=== PATIENT | female | born 1965 | race Caucasian/White ===

== ENCOUNTER → 2016-10-16 | Outpatient (CLI) | payer BC ==
[2015-11-23 14:59] VITALS: BP 152/92
[~2016-10-16] MED LIST: NS 100 ML IV 100 ML IV ONE
[2016-10-16 08:41] LABS: CREATININE 1.09 mg/dL (0.55-1.02)
--- NOTE | 2016-10-16 09:51 | CT ---
HISTORY: Sinusitis Study: CT sinuses with contrast Comparison: None Technique: Axial post-contrast images with coronal and sagittal reformats. Dose reduction procedures were used with MA/kv adjusted for body size. Findings: The frontal, ethmoid, sphenoid, and maxillary sinuses are clear. The ostiomeatal complexes are paten t. There is leftward nasal septal deviation there is right-sided braxton bullosa. The middle ear spac es and mastoid air cells are clear. IMPRESSION: Clear paranasal sinuses Right-sided braxton bullosa Reported By:
--- NOTE | 2016-10-16 10:27 | CT ---
HISTORY: 51-year-old female with neck swelling, sinusitis Study: CT neck soft tissues with contrast Comparison: None Technique: Multiple axial images of the neck were obtained following the administration of intraveno us contrast. Reformatted coronal and sagittal images were also obtained. Dose reduction techniques i ncluding Automated Exposure Control (AEC) and adjustment of mA and kV were utilized. Findings: The nasopharynx and oropharynx are normal in appearance. The base of the tongue and lymphoid tissue within Waldeyer's ring are unremarkable. The hypopharynx and larynx appear normal. No discrete mass or lymphadenopathy is identified in the n cristina. There is moderate, symmetric fatty replacement of the bilateral parotid glands. The submandibul ar and thyroid glands appear normal. The included portions of the brain and skull base appear normal. The paranasal sinuses and mastoid a ir cells appear clear. The visualized upper lungs and mediastinum and heart are also within normal l imits. The imaged osseous structures appear intact. IMPRESSION: No acute osseous or soft tissue abnormality of the neck. Moderate fatty atrophy of the bilateral parotid glands. Reported By:
== END | disposition home or self-care (01) | DRG 607 ==
LOC: RAD 08:21
PROVIDERS: ATTEND Nurse Practitioner Family
DX: R22.0 Localized swelling, mass and lump, head (principal); J32.8 Other chronic sinusitis; K11.0 Atrophy of salivary gland; J34.89 Other specified disorders of nose and nasal sinuses
CPT/HCPCS: 36415; 70487; 70491; 82565; 84520; A4222

== ENCOUNTER → 2017-01-06 | Outpatient (CLI) | payer BC ==
[2015-11-23 14:59] VITALS: BP 152/92
[2017-01-06 14:46] LABS: STOOL FOR WBC POSITIVE (NEGATIVE)
[2017-01-06 14:59] LABS: CRYPTOSPORIDIUM PARVUM ANTIGEN NEGATIVE (NEGATIVE); GIARDIA LAMBLIA ANTIGEN NEGATIVE (NEGATIVE)
== END ==
LOC: LAB 12:04
PROVIDERS: ATTEND Nurse Practitioner Family
DX: R19.7 Diarrhea, unspecified (principal)
CPT/HCPCS: 82270; 83630; 87045; 87328; 87329; 87336; 87338; 87427; 87493; 87899

== ENCOUNTER 2017-01-12 13:07 | Inpatient (IN) | payer BC ==
[2017-01-12 15:43] VITALS: BMI 22.1
[2017-01-12 16:17] LABS: BILIRUBIN,URINE NEGATIVE (NEGATIVE); BLOOD/HEMOGLOBIN,URINE NEGATIVE (NEGATIVE); GLUCOSE, URINE NEGATIVE (NEGATIVE); KETONES,URINE NEGATIVE (NEGATIVE); LEUKOCYTE ESTERASE ,URINE NEGATIVE (NEGATIVE); NITRITES,URINE NEGATIVE (NEGATIVE); PROTEIN,URINE NEGATIVE (NEGATIVE); UROBILINOGEN,URINE NORMAL (NORMAL)
[2017-01-12 16:25] LABS: APPEARANCE,URINE CLEAR (CLEAR); COLOR,URINE YELLOW (YELLOW)
[2017-01-12 16:27] LABS: AMORPHOUS SEDIMENT,UR TRACE /HPF (NEGATIVE); BACTERIA,URINE TRACE /HPF (NEGATIVE); SQUAMOUS EPITHELIAL CELL,UR MODERATE /HPF (NEGATIVE)
[2017-01-12] MEDS ORDERED: PERCOCET TAB 5/325 MG PO PRN (16:29)
[2017-01-12] MEDS ORDERED: HumuLIN R SUBCUT PRN (16:31)
[2017-01-12 16:51] LABS: BASOPHILS # (AUTO) 0.1 X10^3/uL (0.0-0.1); BASOPHILS % (AUTO) 1.8 % (0.2-1.0); EOSINOPHILS # (AUTO) 0.3 x10^3/uL (0.0-0.2); HEMATOCRIT 36.8 % (36.0-47.0); HEMOGLOBIN 12.2 g/dL (12.0-16.0); LYMPHOCYTES # (AUTO) 1.4 X10^3/uL (1.3-2.9); MEAN CORPUSCULAR HEMOGLOBIN 27.3 pg (27.0-34.0); MEAN CORPUSCULAR HGB CONC 33.1 g/dL (33.0-35.0); MEAN CORPUSCULAR VOLUME 82.3 fL (80.0-100.0); MEAN PLATELET VOLUME 10.5 fL (7.4-11.0); MONOCYTES # (AUTO) 0.4 x10^3/uL (0.3-0.8); MONOCYTES % (AUTO) 5.9 % (0.0-13.0); NEUTROPHILS # (AUTO) 4.1 x10^3/uL (2.2-4.8); NEUTROPHILS % (AUTO) 65.3 % (42.0-75.0); PLATELET COUNT 178 X10^3/uL (150.0-450.0); RED BLOOD COUNT 4.47 X10^6/uL (3.5-5.4); RED CELL DISTRIBUTION WIDTH 13.9 % (11.6-16.5); WHITE BLOOD COUNT 6.3 X10^3/uL (3.6-10.0)
[2017-01-12 17:56] LABS: ALANINE AMINOTRANSFERASE 136 Units/L (12-78); ALBUMIN 3.6 g/dL (3.4-5.0); ALKALINE PHOSPHATASE 93 Units/L (46-116); AMYLASE 31 Units/L (25-115); ASPARTATE AMINO TRANSFERASE 145 Units/L (15-37); BLOOD UREA NITROGEN 11 mg/dL (7-18); CALCIUM 9.3 mg/dL (8.5-10.1); CARBON DIOXIDE 26.1 mmol/L (21-32); CHLORIDE 100 mmol/L (98-107); COR NA(FOR HYPERGLY) 140 mmol/L (136-145); LIPASE 146 Units/L (73-393); SODIUM 138 mmol/L (136-145); TOTAL PROTEIN 7.8 g/dL (6.4-8.2); eGFR BLACK RACES > 60 (>60); eGFR NON BLACK RACES > 60 (>60)
--- NOTE | 2017-01-12 18:53 | DR.H&P ---
H&P - History & Physical for Day of: H&P Date: 01/12/17 - Chief Complaint Chief Complaint: ABDOMINAL PAIN, N/V/D - Allergies Allergies/Adverse Reactions: Allergies Allergy/AdvReac Type Severity Reaction Status Date / Time Penicillins Allergy Verified 01/12/17 14:57 codeine AdvReac Verified 01/12/17 14:58 ropinirole AdvReac Verified 01/12/17 14:59 - History of Present Illness History of Present Illness: patient is a 51-year-old white female who presents to the office today with complaints of abdominal pain nausea vomiting and diarrhea that persisted for over a week. Patient has been treated with Cipro on an outpatient basis as well as stool studies. We will plan to admit patient for further evaluation of nausea vomiting food intolerance and diarrhea. Plan to start patient on IV Cipro as well as Flagyl, repeat stool studies, IV hydration and blood sugar control, CT scan of abdomen and pelvis and rule out diverticulitis. Patient has a past medical history of high blood pressure and diabetes. We will resume patient's home medications. - Past Medical History Past Medical History: Dyslipidemia, Hypertension, Hyperthyroidism - Past Surgical History Surgical History: Hysterectomy, Other - Family History Family Medical History: Diabetes Mellitus, Cancer, [place], Coronary Artery Disease, Hypertension - Social History Does patient currently use any type of tobacco product: No Have you used tobacco products in the last 12 months: No Type of Tobacco Use: Cigarettes How many years tobacco product used: 36 Does any household member use tobacco: No Alcohol Use: None Drug Use: Prescription Drugs - Medications Home Medications: Aspirin EC [ASPIRIN EC 81 MG *] 1 tab PO DAILY 01/12/17 [History Confirmed 01/12] Metformin HCl [Metformin HCl ER] 1 tab PO BID 01/12/17 [History Confirmed ] Niacin [Niacin ER 500 mg] 1 cap PO DAILY 01/12/17 [History Confirmed 01/12/17] Omeprazole [PRILOSEC 20 MG *] 1 tab PO DAILY 01/12/17 [History Confirmed ] - Review of Systems Constitutional: Weakness Eyes: No Symptoms Reported ENT: No Symptoms Reported Respiratory: No Symptoms Reported Cardiovascular: No Symptoms Reported Gastrointestinal: Nausea, Vomiting, Abdominal Pain, Diarrhea Genitourinary: No Symptoms Reported Musculoskeletal: Back Pain, Leg Pain Skin: No Symptoms Reported Neurological: No Symptoms Reported - Physical Exam Vital Signs: Temperature 97.7 F Pulse Rate [Right Brachial] 78 Respiratory Rate 20 Blood Pressure [Right Arm] 139/81 Blood Pressure 152/92 O2 Sat by Pulse Oximetry 97 Oriented: Normal Ear: Normal Nose: Normal Throat: Dry Respiratory: RLL Diminished, LLL Diminished Cardiovascular: Normal : Normal Auscultation: Bowel Sounds: Increased Tenderness: RUQ, Epigastric Skin: Normal Musculoskeletal: Normal Psychiatric: Normal Speech Pattern: Clear, Appropriate - Assessment/Plan (1) Abdominal pain Status: Acute Plan: ADMIT, CT ABD/PELVIS WITH CONTRAST. CBC CMP AMYLASE AND LIPASE ON ADMISSION. STOOL STUDIES. IV CIPRO AND FLAGYL, IV HYDRATION. PAIN CONTROL, HIDA SCAN Q AM DUE TO A RUQ TENDERNESS, FOOD INTOLERANCE WAVES OF NAUSEA. SSI FOR BLOOD SUGAR CONTROL (2) Nausea, vomiting and diarrhea Status: Acute (3) Diabetes mellitus Qualifiers: Diabetes mellitus type: type 2 Status: Acute
[2017-01-12] MEDS ORDERED: CIPRO IV 400 MG PREMIX* 400 MG/200 ML IV.SOLN. IV SCH (21:00)
[2017-01-12] MEDS: NS 1000 ML 1,000 ML IV SCH (22:02)
[2017-01-12] MEDS: SNACK - Diabetic Appropriate PO SCH (22:21)
[2017-01-12] MEDS: FLAGYL IV PREMIX 500 MG BAG 500 MG/100 ML BAG IV SCH (23:47)
[2017-01-13] MEDS ORDERED: BENADRYL CAP 50 MG PO ONE (00:06)
[2017-01-13] MEDS ORDERED: BENADRYL CAP/TAB 25 MG PO ONE (00:07)
[2017-01-13] MEDS: FLAGYL IV PREMIX 500 MG BAG 500 MG/100 ML BAG IV SCH ×3 (02:13→15:25)
[2017-01-13 05:28] LABS: BASOPHILS # (AUTO) 0.1 X10^3/uL (0.0-0.1); BASOPHILS % (AUTO) 1.3 % (0.2-1.0); EOSINOPHILS # (AUTO) 0.4 x10^3/uL (0.0-0.2); EOSINOPHILS % (AUTO) 4.7 % (0.9-2.9); HEMATOCRIT 37.3 % (36.0-47.0); HEMOGLOBIN 12.4 g/dL (12.0-16.0); LYMPHOCYTES # (AUTO) 2.2 X10^3/uL (1.3-2.9); LYMPHOCYTES % (AUTO) 29.5 % (21.0-51.0); MEAN CORPUSCULAR HEMOGLOBIN 27.3 pg (27.0-34.0); MEAN CORPUSCULAR HGB CONC 33.2 g/dL (33.0-35.0); MEAN CORPUSCULAR VOLUME 82.3 fL (80.0-100.0); MEAN PLATELET VOLUME 11.2 fL (7.4-11.0); MONOCYTES # (AUTO) 0.5 x10^3/uL (0.3-0.8); MONOCYTES % (AUTO) 6.6 % (0.0-13.0); NEUTROPHILS # (AUTO) 4.4 x10^3/uL (2.2-4.8); NEUTROPHILS % (AUTO) 57.9 % (42.0-75.0); PLATELET COUNT 189 X10^3/uL (150.0-450.0); RED BLOOD COUNT 4.52 X10^6/uL (3.5-5.4); RED CELL DISTRIBUTION WIDTH 13.6 % (11.6-16.5); WHITE BLOOD COUNT 7.6 X10^3/uL (3.6-10.0)
[2017-01-13 05:43] LABS: ALANINE AMINOTRANSFERASE 133 Units/L (12-78); ALBUMIN 3.6 g/dL (3.4-5.0); ALKALINE PHOSPHATASE 95 Units/L (46-116); ASPARTATE AMINO TRANSFERASE 126 Units/L (15-37); BLOOD UREA NITROGEN 11 mg/dL (7-18); CALCIUM 9.5 mg/dL (8.5-10.1); CARBON DIOXIDE 28.3 mmol/L (21-32); CHLORIDE 104 mmol/L (98-107); CREATININE 1.01 mg/dL (0.55-1.02); SODIUM 143 mmol/L (136-145); eGFR BLACK RACES > 60 (>60); eGFR NON BLACK RACES > 60 (>60)
[2017-01-13] MEDS ORDERED: NS 100 ML IV 100 ML IV ONE (05:59)
[2017-01-13] MEDS: PATIENT'S HOME MEDICATION EXT SCH (10:40)
[2017-01-13] MEDS: PROTONIX INJ 40 MG VIAL IVP SCH (10:40)
[2017-01-13] MEDS: NS 1000 ML 1,000 ML IV SCH (15:27)
--- NOTE | 2017-01-13 17:42 | NM ---
HISTORY: Abdominal pain Study: Nuclear medicine HIDA scan with ejection fraction Comparison: None Technique: Multiple scintigraphic images of the abdomen were obtained the intravenous administration of 5.5 mCi of technetium labeled Choletec. Following distention of the gallbladder with radiotracer the patient received a fatty meal.. An kevin mated gallbladder ejection fraction was calculated based on the physiologic response of this infusion . Findings: Homogeneous uptake of radiotracer is seen throughout the liver. This intrabiliary ductal system is o bserved normally. The common hepatic and common bile duct grossly appear unremarkable with normal bi liary-bowel transit. The gallbladder is observed to fill normally. After the fatty meal a gallbladder ejection fraction of 30.5% (normal > 35%) is observed. IMPRESSION: 1. Normal hepatobiliary imaging scan. 2. Abnormal gallbladder ejection fraction 30.5% Reported By:
[2017-01-14] MEDS: SNACK - Diabetic Appropriate PO SCH ×2 (00:42→23:10)
[2017-01-14] MEDS: FLAGYL IV PREMIX 500 MG BAG 500 MG/100 ML BAG IV SCH ×5 (00:43→23:08)
[2017-01-14] MEDS: NS 1000 ML 1,000 ML IV SCH ×4 (00:44→16:53)
[2017-01-14 04:51] LABS: BASOPHILS # (AUTO) 0.1 X10^3/uL (0.0-0.1); BASOPHILS % (AUTO) 1.8 % (0.2-1.0); EOSINOPHILS # (AUTO) 0.3 x10^3/uL (0.0-0.2); EOSINOPHILS % (AUTO) 5.4 % (0.9-2.9); HEMATOCRIT 34.9 % (36.0-47.0); HEMOGLOBIN 11.6 g/dL (12.0-16.0); LYMPHOCYTES # (AUTO) 1.6 X10^3/uL (1.3-2.9); LYMPHOCYTES % (AUTO) 29.1 % (21.0-51.0); MEAN CORPUSCULAR HEMOGLOBIN 27.3 pg (27.0-34.0); MEAN CORPUSCULAR HGB CONC 33.2 g/dL (33.0-35.0); MEAN CORPUSCULAR VOLUME 82.3 fL (80.0-100.0); MEAN PLATELET VOLUME 11.1 fL (7.4-11.0); MONOCYTES # (AUTO) 0.5 x10^3/uL (0.3-0.8); MONOCYTES % (AUTO) 8.2 % (0.0-13.0); NEUTROPHILS # (AUTO) 3.1 x10^3/uL (2.2-4.8); NEUTROPHILS % (AUTO) 55.5 % (42.0-75.0); PLATELET COUNT 161 X10^3/uL (150.0-450.0); RED BLOOD COUNT 4.24 X10^6/uL (3.5-5.4); RED CELL DISTRIBUTION WIDTH 13.6 % (11.6-16.5); WHITE BLOOD COUNT 5.6 X10^3/uL (3.6-10.0)
[2017-01-14 05:03] LABS: ALANINE AMINOTRANSFERASE 114 Units/L (12-78); ALBUMIN 3.2 g/dL (3.4-5.0); ALKALINE PHOSPHATASE 93 Units/L (46-116); ASPARTATE AMINO TRANSFERASE 95 Units/L (15-37); BLOOD UREA NITROGEN 9 mg/dL (7-18); CALCIUM 9.1 mg/dL (8.5-10.1); CARBON DIOXIDE 29.8 mmol/L (21-32); CHLORIDE 105 mmol/L (98-107); COR CA(FOR HYPOALB) 9.7 mg/dL (8.5-10.1); COR NA(FOR HYPERGLY) 142 mmol/L (136-145); CREATININE 0.94 mg/dL (0.55-1.02); SODIUM 141 mmol/L (136-145); TOTAL PROTEIN 7.1 g/dL (6.4-8.2); eGFR BLACK RACES > 60 (>60); eGFR NON BLACK RACES > 60 (>60)
[2017-01-14] MEDS: PROTONIX INJ 40 MG VIAL IVP SCH (10:13)
[2017-01-14] MEDS: PATIENT'S HOME MEDICATION EXT SCH (10:18)
[2017-01-14] MEDS: XYLOCAINE 1% and EPINEPHRINE 1:100,000 ONE (13:28)
[2017-01-14] MEDS: MARCAINE 0.25% INJ ONE (13:28)
[2017-01-14] MEDS ORDERED: LISINOPRIL 5 MG PO SCH (20:30)
[2017-01-14] MEDS ORDERED: [UNRECOGNIZED DRUG - OTHER] PO SCH (20:30)
[2017-01-14] MEDS ORDERED: HYDROCHLOROTHIAZIDE PO SCH (20:30)
[2017-01-14] MEDS ORDERED: BISOPROL PO SCH (20:30)
[2017-01-14] MEDS ORDERED: AMITRIPTYLINE HCL 25 MG PO SCH (21:00)
[2017-01-14] MEDS: ELAVIL PO SCH (23:08)
[2017-01-14] MEDS: ASPIRIN EC 81 MG PO SCH (23:08)
[2017-01-14] MEDS: ZESTRIL TAB 5 MG PO SCH (23:08)
[2017-01-14] MEDS: ZEBETA TAB 5 MG PO SCH ×2 (23:08→23:12)
[2017-01-14] MEDS: HYDROCHLOROTHIAZIDE 25 MG TAB PO SCH (23:10)
[2017-01-15] MEDS: FLAGYL IV PREMIX 500 MG BAG 500 MG/100 ML BAG IV SCH ×4 (04:26→22:41)
[2017-01-15] MEDS: NS 1000 ML 1,000 ML IV SCH ×7 (04:27→22:44)
[2017-01-15 05:29] LABS: BASOPHILS # (AUTO) 0.1 X10^3/uL (0.0-0.1); BASOPHILS % (AUTO) 2.1 % (0.2-1.0); EOSINOPHILS # (AUTO) 0.3 x10^3/uL (0.0-0.2); EOSINOPHILS % (AUTO) 5.6 % (0.9-2.9); HEMATOCRIT 35.4 % (36.0-47.0); HEMOGLOBIN 11.6 g/dL (12.0-16.0); LYMPHOCYTES # (AUTO) 1.5 X10^3/uL (1.3-2.9); LYMPHOCYTES % (AUTO) 30.7 % (21.0-51.0); MEAN CORPUSCULAR HEMOGLOBIN 27.1 pg (27.0-34.0); MEAN CORPUSCULAR HGB CONC 32.9 g/dL (33.0-35.0); MEAN CORPUSCULAR VOLUME 82.5 fL (80.0-100.0); MEAN PLATELET VOLUME 11.5 fL (7.4-11.0); MONOCYTES # (AUTO) 0.4 x10^3/uL (0.3-0.8); MONOCYTES % (AUTO) 7.5 % (0.0-13.0); NEUTROPHILS # (AUTO) 2.7 x10^3/uL (2.2-4.8); NEUTROPHILS % (AUTO) 54.1 % (42.0-75.0); PLATELET COUNT 169 X10^3/uL (150.0-450.0); RED BLOOD COUNT 4.29 X10^6/uL (3.5-5.4); RED CELL DISTRIBUTION WIDTH 13.8 % (11.6-16.5)
[2017-01-15 05:32] LABS: ALANINE AMINOTRANSFERASE 104 Units/L (12-78); ALBUMIN 3.2 g/dL (3.4-5.0); ALKALINE PHOSPHATASE 94 Units/L (46-116); ASPARTATE AMINO TRANSFERASE 79 Units/L (15-37); BLOOD UREA NITROGEN 7 mg/dL (7-18); CALCIUM 8.7 mg/dL (8.5-10.1); CARBON DIOXIDE 27.3 mmol/L (21-32); CHLORIDE 106 mmol/L (98-107); COR CA(FOR HYPOALB) 9.3 mg/dL (8.5-10.1); COR NA(FOR HYPERGLY) 144 mmol/L (136-145); CREATININE 0.96 mg/dL (0.55-1.02); SODIUM 141 mmol/L (136-145); TOTAL PROTEIN 7.1 g/dL (6.4-8.2); eGFR BLACK RACES > 60 (>60); eGFR NON BLACK RACES > 60 (>60)
[2017-01-15] MEDS: PROTONIX INJ 40 MG VIAL IVP SCH (08:33)
[2017-01-15] MEDS ORDERED: XYLOCAINE 2 % (PLAIN) ONE (09:18)
[2017-01-15] MEDS ORDERED: ZOFRAN INJ 4 MG VIAL ONE (09:18)
[2017-01-15] MEDS ORDERED: REGLAN INJ 10 MG VIAL ONE (09:18)
[2017-01-15] MEDS ORDERED: NEOSTIGMINE INJ ONE (09:18)
[2017-01-15] MEDS ORDERED: ROBINUL ONE (09:18)
[2017-01-15] MEDS ORDERED: NORCURON INJ 10 MG VIAL ONE (09:18)
[2017-01-15] MEDS ORDERED: NORMODYNE INJ 100 MG VIAL ONE (09:18)
[2017-01-15] MEDS ORDERED: DIPRIVAN VIAL ONE (09:18)
[2017-01-15] MEDS ORDERED: VERSED ONE (09:18)
[2017-01-15] MEDS ORDERED: LR 1000 ML IV 1,000 ML IV ONE (11:34)
[2017-01-15] MEDS ORDERED: FENTANYL INJ 250 mcg ONE (12:32)
[2017-01-15] MEDS ORDERED: DIPRIVAN VIAL 40 ML ONE (12:32)
[2017-01-15] MEDS ORDERED: ZEMURON ONE (12:33)
[2017-01-15] MEDS: ZESTRIL TAB 5 MG PO SCH (12:39)
[2017-01-15] MEDS: ZEBETA TAB 5 MG PO SCH (12:39)
[2017-01-15] MEDS: ASPIRIN EC 81 MG PO SCH (12:39)
[2017-01-15] MEDS: PATIENT'S HOME MEDICATION EXT SCH (12:40)
[2017-01-15] MEDS: ELAVIL PO SCH ×2 (12:40→22:41)
[2017-01-15] MEDS: THYROID PORK 90 MG PO SCH (12:40)
[2017-01-15] MEDS: HYDROCHLOROTHIAZIDE 25 MG TAB PO SCH (12:40)
[2017-01-15] MEDS ORDERED: CLEOCIN VIAL 600 MG ONE (12:47)
[2017-01-15] MEDS ORDERED: NS 100 ML IV 100 ML IV ONE (12:48)
[2017-01-15] MEDS: XYLOCAINE 1% and EPINEPHRINE 1:100,000 ONE (13:04)
[2017-01-15] MEDS: MARCAINE 0.25% INJ ONE (13:04)
[2017-01-15] MEDS ORDERED: NS IRRIGATION 3000 ML 3,000 ML IR ONE (13:42)
[2017-01-15] MEDS ORDERED: DILAUDID INJ ONE (13:56)
[2017-01-15] MEDS ORDERED: PHENERGAN INJ 25 MG IVP PRN (14:48)
[2017-01-15] MEDS ORDERED: ZOFRAN INJ 4 MG VIAL IVP PRN (14:48)
[2017-01-15] MEDS ORDERED: DILAUDID INJ IVP PRN (14:48)
[2017-01-15] MEDS ORDERED: BENADRYL INJ 50 MG VIAL IVP PRN (14:48)
[2017-01-15] MEDS ORDERED: REGLAN INJ 10 MG VIAL IVP PRN (14:48)
--- NOTE | 2017-01-15 15:32 | OR.GENERIC ---
Post-Op Note Generic - Post-Op Note Operative Report: Operative Report Date of Operation: January 15, 2017 Pre-Operative Diagnosis: Biliary dyskinesia. Post-Operative Diagnosis: 1. Chronic cholecystitis. 2. Biliary dyskinesia. 3. Intra-abdominal adhesions. Procedure: 1. Lysis of adhesions. 2. Laparoscopic cholecystectomy. Surgeon: Sergio Hull MD. Digital X Ray Service Engineer: Maricruz Good CRNA. Specimen: Gallbladder. Estimated blood loss: Minimal. Complications: None. Summary: The patient is a 51 year old female who presented with biliary dyskinesia. The patient was offered cholecystectomy. The risk and benefits of the procedure including difficulty with anesthesia, bleeding, infection, conversion to open procedure, bile leak, hernia formation, DVT, as well as PE were discussed with the patient. The patient understood these risks and requested the procedure. On January 15, 2017, the patient was brought to the operative theatre. A time out was performed verifying the patient and procedure. The patient received clindamycin for pre-operative antibiosis due to penicillin allergy. After satisfactory induction of general endotracheal anesthesia, the abdomen was prepped with Chloraprep and draped in the usual sterile fashion. The skin and subcutaneous tissue inferior to the umbilicus was anesthetized using local anesthetic. The skin was incised sharply. A 12 mm trocar was placed though the incision and into the peritoneal cavity using the David technique. Carbon dioxide was infiltrated through this trocar to obtain a pneumoperitoneum of 15 mm Hg. A camera was placed through this trocar and swept in all directions. No injury was seen from entering the peritoneal cavity. However adhesions were noted in the right aspect of the abdomen. A clearing in the right lower quadrant was identified. The skin was anesthetized and incised sharply. A 5 mm trocar was placed into the peritoneal cavity under laparoscopic visualization. In a similar manner, two additional 5 mm trocars were placed. The first was placed in the mid-clavicular line approximately 2 fingerbreadths inferior to the left costal margin and a second in the subxiphoid region. Using the 5 mm ports, the intra-abdominal adhesions located in the right abdomen and umbilical region were taken down bluntly. This consisted of omentum primarily. However, a loop of small bowel was noted adhered to the omentum. Care was taken to ensure no bowel injury during dissection. Next, the patient was placed in reverse Trendelenburg and rotated to the patients left. The gallbladder was grasped at the fundus and elevated cephalad and slightly lateral. The gallbladder was severely contracted making dissection difficult. Omental attachments were taken down using blunt dissection and electrocautery. The peritoneum on the medial and lateral aspects of the infundibulum of the gallbladder was scored using hook electrocautery. Using blunt dissection, the cystic artery and duct were isolated. The critical view of safety was obtained. Both of these structures were divided between endoclips. The gallbladder was dissected free using hook electrocautery. The gallbladder was placed in an endobag and removed through the umbilical trocar site without difficulty. The trocar and camera were placed back inside the abdomen. Our clips were noted in good position. Bleeding of the gallbladder fossa was controlled using electrocautery. At this point, the 5 mm trocars were removed under direct visualization. No bleeding was seen. The umbilical trocar was then removed and pneumoperitoneum released. The fascia at the umbilicus was closed using a 0-Vicryl placed in a [id number] configuration x 2. The skin edges at all incisions were re-approximated using inverted, interrupted 4-0 Monocryl sutures. Benzoin and Steri-strips were placed. Sterile dressings were placed. The patient was awakened and taken to the recovery room in stable condition. There were no complications. All counts were correct.
[2017-01-15] MEDS: SNACK - Diabetic Appropriate PO SCH (22:16)
[2017-01-16] MEDS: NS 1000 ML 1,000 ML IV SCH ×2 (01:27→06:18)
[2017-01-16] MEDS: FLAGYL IV PREMIX 500 MG BAG 500 MG/100 ML BAG IV SCH ×2 (03:01→09:51)
[2017-01-16 06:06] LABS: BASOPHILS # (AUTO) 0.1 X10^3/uL (0.0-0.1); BASOPHILS % (AUTO) 1.2 % (0.2-1.0); EOSINOPHILS # (AUTO) 0.2 x10^3/uL (0.0-0.2); EOSINOPHILS % (AUTO) 2.7 % (0.9-2.9); HEMATOCRIT 35.2 % (36.0-47.0); HEMOGLOBIN 11.6 g/dL (12.0-16.0); LYMPHOCYTES % (AUTO) 15.3 % (21.0-51.0); MEAN CORPUSCULAR HEMOGLOBIN 27.4 pg (27.0-34.0); MEAN PLATELET VOLUME 11.7 fL (7.4-11.0); MONOCYTES # (AUTO) 0.4 x10^3/uL (0.3-0.8); MONOCYTES % (AUTO) 5.6 % (0.0-13.0); NEUTROPHILS # (AUTO) 5.2 x10^3/uL (2.2-4.8); NEUTROPHILS % (AUTO) 75.2 % (42.0-75.0); PLATELET COUNT 190 X10^3/uL (150.0-450.0); RED BLOOD COUNT 4.24 X10^6/uL (3.5-5.4); RED CELL DISTRIBUTION WIDTH 13.7 % (11.6-16.5); WHITE BLOOD COUNT 6.9 X10^3/uL (3.6-10.0)
[2017-01-16 06:15] LABS: ALANINE AMINOTRANSFERASE 130 Units/L (12-78); ALBUMIN 3.6 g/dL (3.4-5.0); ALKALINE PHOSPHATASE 92 Units/L (46-116); ASPARTATE AMINO TRANSFERASE 134 Units/L (15-37); BLOOD UREA NITROGEN 5 mg/dL (7-18); CALCIUM 8.6 mg/dL (8.5-10.1); CARBON DIOXIDE 28.6 mmol/L (21-32); CHLORIDE 103 mmol/L (98-107); COR NA(FOR HYPERGLY) 141 mmol/L (136-145); CREATININE 0.95 mg/dL (0.55-1.02); SODIUM 140 mmol/L (136-145); TOTAL PROTEIN 7.6 g/dL (6.4-8.2); eGFR BLACK RACES > 60 (>60); eGFR NON BLACK RACES > 60 (>60)
[2017-01-16] MEDS: ASPIRIN EC 81 MG PO SCH (09:51)
[2017-01-16] MEDS: ELAVIL PO SCH (09:51)
--- NOTE | 2017-01-16 09:51 | PCM.PROG ---
Progress Note - Progress Note for Day of Date: 01/16/17 - Subjective Subjective: (+) Ambulating. Reports incisional pain. (-) N/V. Tolerating PO. - Past Medical Family Social History Allergies: Allergies Penicillins Allergy (Verified 01/12/17 14:57) ciprofloxacin [From Cipro] Adverse Reaction (Verified 01/13/17 02:11) codeine Adverse Reaction (Verified 01/12/17 14:58) ropinirole Adverse Reaction (Verified 01/12/17 14:59) - Vital Signs and I&O's Vital Signs: Temperature 98.1 F Pulse Rate [Right Brachial] 93 Pulse Rate 78 Respiratory Rate 20 Blood Pressure [Right Arm] 114/58 Blood Pressure 115/73 O2 Sat by Pulse Oximetry 95 Intake and Output: Intake & Output 01/13/17 01/14/17 01/15/17 01/16/17 11:59 11:59 11:59 11:59 Intake Total 366 141 0871 2700 Output Total 1675 Balance 181 520 3394 1025 - Physical Exam Oriented: Normal Ear: Normal Nose: Normal Throat: Normal, Dry Respiratory: Normal Cardiovascular: Normal Auscultation: Bowel Sounds: Normal Palpation: Normal Tenderness: RUQ (Approp. TTP.), Periumbilical, Other (Dressings minimal blood staining.) Skin: Normal Musculoskeletal: Normal Psychiatric: Normal Mood Description: Calm Affect: Normal Speech Pattern: Clear, Appropriate - Laboratory and Diagnostics Result Diagrams: 01/16/17 04:35 01/16/17 04:35 Labs: 01/12/17 16:00 Urine,Clean Catch Urine Culture - Final Laboratory WBC 6.9 X10^3/uL (3.6-10.0) 01/16/17 04:35 RBC 4.24 X10^6/uL (3.5-5.4) 01/16/17 04:35 Hgb 11.6 g/dL (12.0-16.0) L 01/16/17 04:35 Hct 35.2 % (36.0-47.0) L 01/16/17 04:35 MCV 83.0 fL (80.0-100.0) 01/16/17 04:35 MCH 27.4 pg (27.0-34.0) 01/16/17 04:35 MCHC 33.0 g/dL (33.0-35.0) 01/16/17 04:35 RDW 13.7 % (11.6-16.5) 01/16/17 04:35 Plt Count 190 X10^3/uL (150.0-450.0) 01/16/17 04:35 MPV 11.7 fL (7.4-11.0) H 01/16/17 04:35 Neut % 75.2 % (42.0-75.0) H 01/16/17 04:35 Lymph % 15.3 % (21.0-51.0) L 01/16/17 04:35 Peach % 5.6 % (0.0-13.0) 01/16/17 04:35 Eos % 2.7 % (0.9-2.9) 01/16/17 04:35 Baso % 1.2 % (0.2-1.0) H 01/16/17 04:35 Neut # 5.2 x10^3/uL (2.2-4.8) H 01/16/17 04:35 Lymph # 1.0 X10^3/uL (1.3-2.9) L 01/16/17 04:35 Peach # 0.4 x10^3/uL (0.3-0.8) 01/16/17 04:35 Eos # 0.2 x10^3/uL (0.0-0.2) 01/16/17 04:35 Baso # 0.1 X10^3/uL (0.0-0.1) 01/16/17 04:35 Absolute Nucleated RBC 0.0 /100WBC 01/16/17 04:35 Sodium 140 mmol/L (136-145) 01/16/17 04:35 Corrected Sodium 141 mmol/L (136-145) 01/16/17 04:35 Potassium 3.3 mmol/L (3.5-5.1) L 01/16/17 04:35 Chloride 103 mmol/L (98-107) 01/16/17 04:35 Carbon Dioxide 28.6 mmol/L (21-32) 01/16/17 04:35 BUN 5 mg/dL (7-18) L 01/16/17 04:35 Creatinine 0.95 mg/dL (0.55-1.02) 01/16/17 04:35 Est GFR (MDRD) Af Amer > 60 (>60) 01/16/17 04:35 Est GFR (MDRD) Non-Af > 60 (>60) 01/16/17 04:35 Glucose 140 mg/dL (65-99) H 01/16/17 04:35 POC Glucose (mg/dL) 171 mg/dL (65-99) H 01/16/17 05:47 Calcium 8.6 mg/dL (8.5-10.1) 01/16/17 04:35 Corrected Calcium TNP 01/16/17 04:35 Total Bilirubin 0.40 mg/dL (0.2-1.0) 01/16/17 04:35 AST 134 Units/L (15-37) H 01/16/17 04:35 ALT 130 Units/L (12-78) H 01/16/17 04:35 Alkaline Phosphatase 92 Units/L (46-116) 01/16/17 04:35 Total Protein 7.6 g/dL (6.4-8.2) 01/16/17 04:35 Albumin 3.6 g/dL (3.4-5.0) 01/16/17 04:35 Globulin 4.0 g/dL (2.5-4.5) 01/16/17 04:35 Albumin/Globulin Ratio 0.9 Ratio (1.1-2.1) L 01/16/17 04:35 Amylase 31 Units/L (25-115) 01/12/17 16:42 Lipase 146 Units/L (73-393) 01/12/17 16:42 Specimen Type Clean catch urine 01/12/17 16:06 Urine Color Yellow (YELLOW) 01/12/17 16:06 Urine Appearance Clear (CLEAR) 01/12/17 16:06 Urine pH 5.0 (5.0 - 8.0) 01/12/17 16:06 Ur Specific [place] 1.010 (1.000-1.030) 01/12/17 16:06 Urine Protein Negative (NEGATIVE) 01/12/17 16:06 Urine Glucose (UA) Negative (NEGATIVE) 01/12/17 16:06 Urine Ketones Negative (NEGATIVE) 01/12/17 16:06 Urine Occult Blood Negative (NEGATIVE) 01/12/17 16:06 Urine Nitrite Negative (NEGATIVE) 01/12/17 16:06 Urine Bilirubin Negative (NEGATIVE) 01/12/17 16:06 Urine Urobilinogen Normal (NORMAL) 01/12/17 16:06 Ur Leukocyte Esterase Negative (NEGATIVE) 01/12/17 16:06 Urine RBC 2-3 /HPF (NEGATIVE) 01/12/17 16:06 Urine WBC None seen /HPF (NEGATIVE) 01/12/17 16:06 Ur Squamous Epith Cells Moderate /HPF (NEGATIVE) 01/12/17 16:06 Amorphous Sediment Trace /HPF (NEGATIVE) 01/12/17 16:06 Urine Bacteria Trace /HPF (NEGATIVE) 01/12/17 16:06 Ur Culture Indicated? Yes/culture set up 01/12/17 16:06 Tissue Pathology To follow 01/15/17 14:15 - Plan (1) Abdominal pain Status: Acute Plan: POD #1 lap berny with MARCIN. Stable post-op. Adv. diet. Discharge when OK with primary team. Routine post-op care. f/u 1-2 weeks.
[2017-01-16] MEDS: HYDROCHLOROTHIAZIDE 25 MG TAB PO SCH (09:52)
[2017-01-16] MEDS: PATIENT'S HOME MEDICATION EXT SCH (09:52)
[2017-01-16] MEDS: PROTONIX INJ 40 MG VIAL IVP SCH (09:52)
[2017-01-16] MEDS: ZEBETA TAB 5 MG PO SCH (09:53)
[2017-01-16] MEDS: THYROID PORK 90 MG PO SCH (09:53)
[2017-01-16] MEDS: ZESTRIL TAB 5 MG PO SCH (09:53)
[2017-01-16 12:21] VITALS: BP 117/75
== END 2017-01-16 11:15 | disposition home or self-care (01) | DRG 446 ==
LOC: MED/SURG 13:07 → OBS 13:26 → MED/SURG 13:27
PROVIDERS: ADMIT Internal Medicine; ATTEND Internal Medicine
PROC: 0DNU4ZZ Release Omentum, Percutaneous Endoscopic Approach (ICD-10-PCS; 2017-01-15)
PROC: 0FT44ZZ Resection of Gallbladder, Percutaneous Endoscopic Approach (ICD-10-PCS; principal; 2017-01-15 09:45)
DX: K81.1 Chronic cholecystitis (principal); R10.84 Generalized abdominal pain; K82.8 Other specified diseases of gallbladder; K66.0 Peritoneal adhesions (postprocedural) (postinfection); K52.89 Other specified noninfective gastroenteritis and colitis; E11.65 Type 2 diabetes mellitus with hyperglycemia; I10 Essential (primary) hypertension; E78.2 Mixed hyperlipidemia; R11.2 Nausea with vomiting, unspecified; R07.89 Other chest pain; R74.8 Abnormal levels of other serum enzymes
CPT/HCPCS: 36415; 71020; 74177; 78227; 80053; 81001; 82150; 83690; 85025; 87086; 93005; 93010; A4216; A4222; C9113; S0020; S0030; J0744; J1170; J1200; J1815; J2001; J2250; J2405; J2550; J2710; J2765; J3010; J3490; J7120; S0077

== ENCOUNTER 2017-03-10 09:45 | Inpatient (IN) | payer BC ==
[2017-03-10] MEDS ORDERED: NS 1000 ML 1,000 ML ONE (09:55)
[2017-03-10] MEDS ORDERED: NS 100 ML IV 100 ML IV ONE (09:56)
[2017-03-10] MEDS ORDERED: NEOSTIGMINE INJ ONE (10:24)
[2017-03-10] MEDS ORDERED: ZOFRAN INJ 4 MG VIAL ONE (10:24)
[2017-03-10] MEDS ORDERED: NEO-SYNEPHRINE INJ ONE (10:24)
[2017-03-10] MEDS ORDERED: DIPRIVAN VIAL ONE ×3 (10:24→13:25)
[2017-03-10] MEDS ORDERED: XYLOCAINE 2 % (PLAIN) ONE (10:24)
[2017-03-10] MEDS ORDERED: ROBINUL ONE (10:24)
[2017-03-10] MEDS: CLEOCIN VIAL 600 MG ONE ×2 (12:00→12:06)
[2017-03-10] MEDS: MARCAINE 0.25% INJ ONE ×2 (12:06→12:39)
[2017-03-10] MEDS: XYLOCAINE 1% and EPINEPHRINE 1:100,000 ONE ×2 (12:06→12:39)
[2017-03-10] MEDS ORDERED: FENTANYL INJ 250 mcg ONE ×2 (12:13→14:51)
[2017-03-10] MEDS ORDERED: ZEMURON ONE ×3 (12:14→14:47)
[2017-03-10] MEDS ORDERED: FENTANYL INJ 100 mcg ONE ×2 (12:52→14:47)
[2017-03-10] MEDS ORDERED: NS IRRIGATION 1000 ML 1,000 ML IR ONE ×6 (13:04→16:45)
[2017-03-10] MEDS ORDERED: LR 1000 ML IV 1,000 ML IV ONE ×3 (13:16→16:54)
[2017-03-10] MEDS ORDERED: DIPRIVAN VIAL 20 ML ONE ×2 (13:16→15:29)
[2017-03-10] MEDS ORDERED: DIPRIVAN VIAL 0 ML ONE (13:45)
[2017-03-10] MEDS ORDERED: DILAUDID INJ ONE ×2 (13:45→18:25)
[2017-03-10] MEDS ORDERED: FLAGYL IV PREMIX 500 MG BAG 500 MG/100 ML BAG IV ONE (14:20)
[2017-03-10] MEDS ORDERED: HYDROGEN PEROXIDE 3% ONE (16:42)
[2017-03-10 18:03] LABS: BILIRUBIN,URINE NEGATIVE (NEGATIVE); BLOOD/HEMOGLOBIN,URINE NEGATIVE (NEGATIVE); GLUCOSE, URINE NEGATIVE (NEGATIVE); KETONES,URINE NEGATIVE (NEGATIVE); LEUKOCYTE ESTERASE ,URINE 1+ (NEGATIVE); NITRITES,URINE NEGATIVE (NEGATIVE); PROTEIN,URINE 1+ (NEGATIVE); UROBILINOGEN,URINE NORMAL (NORMAL)
[2017-03-10 18:14] LABS: APPEARANCE,URINE SLIGHTLY HAZY (CLEAR); BACTERIA,URINE TRACE /HPF (NEGATIVE); COLOR,URINE YELLOW (YELLOW); RBC,URINE NONE SEEN /HPF (NEGATIVE); SQUAMOUS EPITHELIAL CELL,UR FEW /HPF (NEGATIVE)
[2017-03-10 18:15] LABS: AMORPHOUS SEDIMENT,UR TRACE /HPF (NEGATIVE); RENAL EPITHELIAL CELLS,URINE RARE /HPF (NEGATIVE)
[2017-03-10] MEDS: D5 1/2 NS + KCL 20 MEQ/L 1,000 ML IV SCH (19:45)
[2017-03-10 20:22] LABS: BASOPHILS # (AUTO) 0.1 X10^3/uL (0.0-0.1); BASOPHILS % (AUTO) 0.6 % (0.2-1.0); EOSINOPHILS # (AUTO) 0.1 x10^3/uL (0.0-0.2); EOSINOPHILS % (AUTO) 1.2 % (0.9-2.9); HEMATOCRIT 33.3 % (36.0-47.0); HEMOGLOBIN 10.8 g/dL (12.0-16.0); LYMPHOCYTES # (AUTO) 0.7 X10^3/uL (1.3-2.9); MEAN CORPUSCULAR HEMOGLOBIN 26.2 pg (27.0-34.0); MEAN CORPUSCULAR HGB CONC 32.5 g/dL (33.0-35.0); MEAN CORPUSCULAR VOLUME 80.4 fL (80.0-100.0); MEAN PLATELET VOLUME 11.3 fL (7.4-11.0); MONOCYTES # (AUTO) 0.4 x10^3/uL (0.3-0.8); NEUTROPHILS # (AUTO) 7.6 x10^3/uL (2.2-4.8); NEUTROPHILS % (AUTO) 85.2 % (42.0-75.0); PLATELET COUNT 178 X10^3/uL (150.0-450.0); RED BLOOD COUNT 4.14 X10^6/uL (3.5-5.4); WHITE BLOOD COUNT 8.9 X10^3/uL (3.6-10.0)
[2017-03-10 20:31] LABS: BLOOD UREA NITROGEN 11 mg/dL (7-18); CALCIUM 7.7 mg/dL (8.5-10.1); CHLORIDE 106 mmol/L (98-107); COR NA(FOR HYPERGLY) 141 mmol/L (136-145); SODIUM 139 mmol/L (136-145); eGFR BLACK RACES > 60 (>60); eGFR NON BLACK RACES > 60 (>60)
[2017-03-10] MEDS: DILAUDID INJ IVP PRN (21:15)
[2017-03-10] MEDS: FLAGYL IV PREMIX 500 MG BAG 500 MG/100 ML BAG IV SCH (21:16)
[2017-03-10] MEDS: PROTONIX INJ 40 MG VIAL IVP SCH (21:17)
[2017-03-10] MEDS: CLEOCIN 600 MG IV PREMIX 600 MG/50 ML BAG IV SCH (22:41)
--- NOTE | 2017-03-10 22:50 | OR.GENERIC ---
Post-Op Note Generic - Post-Op Note Operative Report: Operative Report Date of Operation: March 10, 2017 Pre-Operative Diagnosis: 1. Intra-abdominal adhesions. 2. Periumbilical pain. Post-Operative Diagnosis: Severe intra-abdominal adhesions. Procedures: 1. Diagnostic laparoscopy. 2. Exploratory laparotomy. 3. Extensive lysis of adhesions (greater than 1.5 hrs). 4. Transverse colon resection with [id number] functional end-to-end anastomosis (stapled). Surgeon: Sergio Hull MD Water Resources Program Director: Riaz Espinoza CRNA Specimens: Transverse colon segment. Estimated blood loss: 300 mL. Complications: Transverse colon perforation. Summary: The patient is a 51 year old female who presented with persistent periumbilical abdominal pain. The patient has a history of intra-abdominal adhesions and recently underwent laparoscopic cholecystectomy with lysis of adhesions. The patient was offered diagnostic laparoscopy and lysis of adhesions. The risk and benefits of the procedure including difficulty with anesthesia, bleeding, infection, conversion to open procedure, hernia formation, bowel injury, non- therapeutic surgery, reformation of adhesions, DVT, as well as PE were discussed with the patient. The patient understood these risks and requested the procedure. On March 10, 2017, the patient was brought to the operative theatre. A time out was performed verifying the patient and procedure. The patient received clindamycin for pre-operative antibiosis. After satisfactory induction of general endotracheal anesthesia, the abdomen was prepped with Chloraprep and draped in the usual sterile fashion. The skin and subcutaneous tissue superior to the umbilicus was anesthetized using local anesthetic. The skin was incised sharply. A 12 mm trocar was placed though the incision and into the peritoneal cavity using the Optiview technique. Carbon dioxide was infiltrated through this trocar to obtain a pneumoperitoneum of 15 mm Hg. A camera was placed through this trocar and swept in all directions. No injury was seen from entering the peritoneal cavity. A site was selected in the right upper quadrant for our 2nd trocar. The skin and fascia was anesthetized using local anesthetic. The skin was incised sharply. A 5 mm trocar was placed into the peritoneal cavity under direct visualization. Dense adhesions were noted inferior to the umbilicus tracking along transversely across the abdomen. Two additional 5 mm trocars were placed in the left upper quadrant in a similar fashion. The patient was placed in Trendelenburg. The adhesions were slowly taken down using blunt dissection. An arterial bleed from the adhered mesentery was controlled using a 5 mm clip. The adhesions were dense and difficult to dissect. Over 1 hour was spent attempting to release the adhesions. Bowel was identified densely adhered. Attempts at blunt dissection were unsuccessful. The decision was made to convert to open. The trocars were removed and pneumoperitoneum released. The supraumbilical incision was extended to the left of midline and into the previous lower midline scar. The incision was carried down sharply to the fascia. The fascia was elevated at the laparoscopic port site. The bowel could not be released using blunt dissection. Therefore, the bowel was sharply dissected from the peritoneum. A colon perforation was noted. This was closed using a 3-0 Silk suture. Through additional sharp and blunt dissection, the colon was released from the anterior abdominal wall. The bowel was identified as redundant transverse colon. Due to the injury, the decision was made to perform a segmental colonic resection. The mesentery was scored adjacent to the injury proximally and distally. The colon was divided using a CLAUDIA stapler. The mesentery was divided between 2-0 Silk ties. The colon segment was passed off the field. No other adhesions were identified. The small bowel was ran from the ligament of Treitz to the cecum. The colon was then connected using a 2 layer hand sewn anastomosis. The lumen was palpated and felt to be too narrow. The anastomosis was removed between CLAUDIA staple lines. The colon was anastomosed using a CLAUDIA 80 cm in a side -to-side functional end-to-end configuration. The common colotomy was closed with a CLAUDIA and imbricated with 2-0 Silk sutures. The mesenteric defect was closed with interrupted 2-0 Silk sutures. The abdomen was copiously irrigated. The NGT was palpated in the stomach. The fascia was re-approximated using interrupted #1 PDS sutures. The midline skin edges were re-approximated using skin alexandro. The skin at the 5 mm trocar sites were closed using inverted, interrupted 4-0 Monocryl sutures. Mastisol and Steri-strips were placed. Telfa eda impregnated with betadine were placed between the midline alexandro. A sterile dressing was placed. The patient was awakened and taken to the recovery room in stable condition. There were no complications. All counts were correct.
[2017-03-11] MEDS: HEPARIN SODIUM INJ 5000 UNITS SC SCH ×4 (00:30→22:07)
[2017-03-11] MEDS: FLAGYL IV PREMIX 500 MG BAG 500 MG/100 ML BAG IV SCH ×3 (03:25→19:59)
[2017-03-11] MEDS: D5 1/2 NS + KCL 20 MEQ/L 1,000 ML IV SCH ×3 (03:25→19:52)
[2017-03-11] MEDS: DILAUDID INJ IVP PRN ×5 (04:00→17:05)
[2017-03-11] MEDS: CLEOCIN 600 MG IV PREMIX 600 MG/50 ML BAG IV SCH ×3 (05:53→21:34)
[2017-03-11 06:30] LABS: BASOPHILS # (AUTO) 0.1 X10^3/uL (0.0-0.1); BASOPHILS % (AUTO) 0.6 % (0.2-1.0); EOSINOPHILS # (AUTO) 0.1 x10^3/uL (0.0-0.2); EOSINOPHILS % (AUTO) 0.7 % (0.9-2.9); HEMOGLOBIN 9.7 g/dL (12.0-16.0); LYMPHOCYTES # (AUTO) 0.8 X10^3/uL (1.3-2.9); LYMPHOCYTES % (AUTO) 8.2 % (21.0-51.0); MEAN CORPUSCULAR HEMOGLOBIN 26.6 pg (27.0-34.0); MEAN CORPUSCULAR HGB CONC 33.3 g/dL (33.0-35.0); MEAN CORPUSCULAR VOLUME 79.8 fL (80.0-100.0); MEAN PLATELET VOLUME 10.9 fL (7.4-11.0); MONOCYTES # (AUTO) 0.4 x10^3/uL (0.3-0.8); MONOCYTES % (AUTO) 4.3 % (0.0-13.0); NEUTROPHILS # (AUTO) 8.2 x10^3/uL (2.2-4.8); NEUTROPHILS % (AUTO) 86.2 % (42.0-75.0); PLATELET COUNT 163 X10^3/uL (150.0-450.0); RED BLOOD COUNT 3.63 X10^6/uL (3.5-5.4); WHITE BLOOD COUNT 9.5 X10^3/uL (3.6-10.0)
[2017-03-11 06:41] LABS: BLOOD UREA NITROGEN 11 mg/dL (7-18); CALCIUM 7.9 mg/dL (8.5-10.1); CARBON DIOXIDE 24.2 mmol/L (21-32); CHLORIDE 103 mmol/L (98-107); COR NA(FOR HYPERGLY) 141 mmol/L (136-145); SODIUM 138 mmol/L (136-145); eGFR BLACK RACES > 60 (>60); eGFR NON BLACK RACES > 60 (>60)
[2017-03-11] MEDS: ZOFRAN INJ 4 MG VIAL IVP PRN ×2 (07:50→12:31)
[2017-03-11] MEDS ORDERED: HumuLIN R SUBCUT PRN (08:00)
[2017-03-11] MEDS: PROTONIX INJ 40 MG VIAL IVP SCH (08:50)
[2017-03-11] MEDS ORDERED: SYNTHROID INJ 100 mcg VIAL IM SCH (09:00)
[2017-03-11] MEDS: SYNTHROID INJ 100 mcg VIAL IVP SCH (10:13)
[2017-03-11 10:45] VITALS: BMI 25.7
--- NOTE | 2017-03-11 19:51 | PCM.PROG ---
Progress Note - Progress Note for Day of Date: 03/11/17 - Subjective Subjective: Admits to incisional pain. (+) OOB - ambulating. (+) nausea / (-) vomiting. (-) flatus. - Past Medical Family Social History Allergies: Allergies Penicillins Allergy (Verified 01/12/17 14:57) ciprofloxacin [From Cipro] Adverse Reaction (Verified 01/13/17 02:11) codeine Adverse Reaction (Verified 01/12/17 14:58) ropinirole Adverse Reaction (Verified 01/12/17 14:59) - Vital Signs and I&O's Vital Signs: Temperature 98.2 F Pulse Rate [Right] 124 Pulse Rate 125 Respiratory Rate 15 Blood Pressure [Right Arm] 134/71 Blood Pressure 100/55 O2 Sat by Pulse Oximetry 97 Intake and Output: Intake & Output 03/09/17 03/10/17 03/11/17 03/12/17 11:59 11:59 11:59 11:59 Intake Total 1867 1000 Output Total 6980 700 Balance -5113 300 - Physical Exam Oriented: Normal Eyes: Normal Respiratory: Normal Cardiovascular: Tachycardia Auscultation: Bowel Sounds: Decreased Tenderness: Other (Appropriate) Skin: Normal Musculoskeletal: Normal Psychiatric: Normal Mood Description: Calm, Appropriate Affect: Normal Speech Pattern: Clear, Appropriate - Laboratory and Diagnostics Result Diagrams: 03/11/17 05:55 03/11/17 05:55 Labs: Laboratory WBC 9.5 X10^3/uL (3.6-10.0) 03/11/17 05:55 RBC 3.63 X10^6/uL (3.5-5.4) 03/11/17 05:55 Hgb 9.7 g/dL (12.0-16.0) L 03/11/17 05:55 Hct 29.0 % (36.0-47.0) L 03/11/17 05:55 MCV 79.8 fL (80.0-100.0) L 03/11/17 05:55 MCH 26.6 pg (27.0-34.0) L 03/11/17 05:55 MCHC 33.3 g/dL (33.0-35.0) 03/11/17 05:55 RDW 14.0 % (11.6-16.5) 03/11/17 05:55 Plt Count 163 X10^3/uL (150.0-450.0) 03/11/17 05:55 MPV 10.9 fL (7.4-11.0) 03/11/17 05:55 Neut % 86.2 % (42.0-75.0) H 03/11/17 05:55 Lymph % 8.2 % (21.0-51.0) L 03/11/17 05:55 [place]y % 4.3 % (0.0-13.0) 03/11/17 05:55 Eos % 0.7 % (0.9-2.9) L 03/11/17 05:55 Baso % 0.6 % (0.2-1.0) 03/11/17 05:55 Neut # 8.2 x10^3/uL (2.2-4.8) H 03/11/17 05:55 Lymph # 0.8 X10^3/uL (1.3-2.9) L 03/11/17 05:55 [place]y # 0.4 x10^3/uL (0.3-0.8) 03/11/17 05:55 Eos # 0.1 x10^3/uL (0.0-0.2) 03/11/17 05:55 Baso # 0.1 X10^3/uL (0.0-0.1) 03/11/17 05:55 Absolute Nucleated RBC 0.0 /100WBC 03/11/17 05:55 PTT 32.0 SECONDS (22.9-36.5) 03/11/17 05:55 PTT Comment - 03/11/17 05:55 Sodium 138 mmol/L (136-145) 03/11/17 05:55 Corrected Sodium 141 mmol/L (136-145) 03/11/17 05:55 Potassium 4.5 mmol/L (3.5-5.1) 03/11/17 05:55 Chloride 103 mmol/L (98-107) 03/11/17 05:55 Carbon Dioxide 24.2 mmol/L (21-32) 03/11/17 05:55 BUN 11 mg/dL (7-18) 03/11/17 05:55 Creatinine 1.00 mg/dL (0.55-1.02) 03/11/17 05:55 Est GFR (MDRD) Af Amer > 60 (>60) 03/11/17 05:55 Est GFR (MDRD) Non-Af > 60 (>60) 03/11/17 05:55 Glucose 229 mg/dL (65-99) H 03/11/17 05:55 POC Glucose (mg/dL) 162 mg/dL (65-99) H 03/11/17 15:58 Calcium 7.9 mg/dL (8.5-10.1) L 03/11/17 05:55 Specimen Type Catherized urine 03/10/17 17:51 Urine Color Yellow (YELLOW) 03/10/17 17:51 Urine Appearance Slightly hazy (CLEAR) 03/10/17 17:51 Urine pH 5.0 (5.0 - 8.0) 03/10/17 17:51 Ur Specific [place] 1.015 (1.000-1.030) 03/10/17 17:51 Urine Protein 1+ (NEGATIVE) 03/10/17 17:51 Urine Glucose (UA) Negative (NEGATIVE) 03/10/17 17:51 Urine Ketones Negative (NEGATIVE) 03/10/17 17:51 Urine Occult Blood Negative (NEGATIVE) 03/10/17 17:51 Urine Nitrite Negative (NEGATIVE) 03/10/17 17:51 Urine Bilirubin Negative (NEGATIVE) 03/10/17 17:51 Urine Urobilinogen Normal (NORMAL) 03/10/17 17:51 Ur Leukocyte Esterase 1+ (NEGATIVE) 03/10/17 17:51 Urine RBC None seen /HPF (NEGATIVE) 03/10/17 17:51 Urine WBC 0-1 /HPF (NEGATIVE) 03/10/17 17:51 Ur Squamous Epith Cells Few /HPF (NEGATIVE) 03/10/17 17:51 Ur Renal Epithelial Cell Rare /HPF (NEGATIVE) 03/10/17 17:51 Amorphous Sediment Trace /HPF (NEGATIVE) 03/10/17 17:51 Urine Bacteria Trace /HPF (NEGATIVE) 03/10/17 17:51 Ur Culture Indicated? No/not indicated 03/10/17 17:51 Tissue Pathology To follow 03/10/17 17:51 - Plan (1) Postoperative abdominal pain Status: Acute Plan: Stable post-op. Continue NGT until flatus. Tachycardia. Likely SIRS. Start metoprolol 5 mg IV q6 hrs. Monitor. Suspect pain contributing. Start toradol. Await bowel function. May need PICC and TPN. Continue IV abx. for perforation with contamination. Decrease IVF. Remove eda from midline with dressing takedown tomorrow.
[2017-03-11] MEDS: LOPRESSOR INJ 5 MG AMP IVP SCH (20:31)
[2017-03-11] MEDS: TORADOL 30 MG VIAL IVP PRN (22:09)
[2017-03-12] MEDS: D5 1/2 NS + KCL 20 MEQ/L 1,000 ML IV SCH ×4 (02:01→19:10)
[2017-03-12] MEDS: FLAGYL IV PREMIX 500 MG BAG 500 MG/100 ML BAG IV SCH ×3 (02:02→19:23)
[2017-03-12] MEDS: LOPRESSOR INJ 5 MG AMP IVP SCH ×5 (03:22→22:48)
[2017-03-12] MEDS: CLEOCIN 600 MG IV PREMIX 600 MG/50 ML BAG IV SCH ×3 (05:55→21:05)
[2017-03-12] MEDS: HEPARIN SODIUM INJ 5000 UNITS SC SCH ×3 (06:02→22:48)
[2017-03-12 06:13] LABS: BASOPHILS # (AUTO) 0.1 X10^3/uL (0.0-0.1); BASOPHILS % (AUTO) 0.5 % (0.2-1.0); EOSINOPHILS # (AUTO) 0.3 x10^3/uL (0.0-0.2); HEMATOCRIT 26.7 % (36.0-47.0); HEMOGLOBIN 8.9 g/dL (12.0-16.0); LYMPHOCYTES # (AUTO) 1.1 X10^3/uL (1.3-2.9); LYMPHOCYTES % (AUTO) 11.3 % (21.0-51.0); MEAN CORPUSCULAR HEMOGLOBIN 26.6 pg (27.0-34.0); MEAN CORPUSCULAR HGB CONC 33.5 g/dL (33.0-35.0); MEAN CORPUSCULAR VOLUME 79.6 fL (80.0-100.0); MEAN PLATELET VOLUME 10.3 fL (7.4-11.0); MONOCYTES # (AUTO) 0.6 x10^3/uL (0.3-0.8); MONOCYTES % (AUTO) 6.1 % (0.0-13.0); NEUTROPHILS # (AUTO) 7.9 x10^3/uL (2.2-4.8); NEUTROPHILS % (AUTO) 79.1 % (42.0-75.0); PLATELET COUNT 156 X10^3/uL (150.0-450.0); RED BLOOD COUNT 3.36 X10^6/uL (3.5-5.4); RED CELL DISTRIBUTION WIDTH 14.7 % (11.6-16.5); WHITE BLOOD COUNT 9.9 X10^3/uL (3.6-10.0)
[2017-03-12 06:41] LABS: BLOOD UREA NITROGEN 7 mg/dL (7-18); CALCIUM 8.5 mg/dL (8.5-10.1); CARBON DIOXIDE 27.3 mmol/L (21-32); CHLORIDE 104 mmol/L (98-107); COR NA(FOR HYPERGLY) 141 mmol/L (136-145); CREATININE 0.84 mg/dL (0.55-1.02); MAGNESIUM 1.3 mg/dL (1.7-2.9); SODIUM 139 mmol/L (136-145); eGFR BLACK RACES > 60 (>60); eGFR NON BLACK RACES > 60 (>60)
[2017-03-12] MEDS: PROTONIX INJ 40 MG VIAL IVP SCH (09:02)
[2017-03-12] MEDS: SYNTHROID INJ 100 mcg VIAL IVP SCH (09:08)
[2017-03-12] MEDS: ZOFRAN INJ 4 MG VIAL IVP PRN ×3 (10:09→21:50)
[2017-03-12] MEDS: TORADOL 30 MG VIAL IVP PRN ×2 (10:20→22:49)
[2017-03-12] MEDS ORDERED: PATIENT'S HOME MEDICATION PO SCH (15:00)
[2017-03-12] MEDS ORDERED: LASIX PO SCH (15:00)
[2017-03-12] MEDS ORDERED: LOPRESSOR TAB 25 MG PO SCH (15:00)
[2017-03-12] MEDS ORDERED: GEODON PO SCH (15:00)
[2017-03-12] MEDS ORDERED: ELIQUIS PO SCH (15:15)
[2017-03-12] MEDS ORDERED: EFFEXOR XR 150 MG CAP PO SCH (16:00)
[2017-03-12] MEDS ORDERED: MAGNESIUM SULFATE 1 GM/100 mL PREMIX 1 GM/100 ML BAG IV ONE ×3 (16:36→20:19)
[2017-03-12] MEDS: MAGNESIUM SULFATE 1 GM/100 mL PREMIX 2 GM/200 ML BAG IV SCH ×2 (19:27→20:30)
[2017-03-12] MEDS ORDERED: FLONASE NASAL SPRAY ENOSTRIL SCH (21:00)
[2017-03-12] MEDS ORDERED: NAMENDA TAB 10 MG PO SCH (21:00)
[2017-03-12] MEDS ORDERED: PATANOL 0.1% EYE DROPS EACHEYE SCH (21:00)
[2017-03-12] MEDS ORDERED: XYLOCAINE 1 % (PLAIN) ONE (21:39)
--- NOTE | 2017-03-12 22:51 | DR.CONSULT ---
Consult - Consultation for Day of: Date: 03/12/17 - Chief Complaint Chief Complaint: My throat hurts - Allergies Allergies/Adverse Reactions: Allergies Allergy/AdvReac Type Severity Reaction Status Date / Time Penicillins Allergy Verified 01/12/17 14:57 ciprofloxacin [From Cipro] AdvReac Verified 01/13/17 02:11 codeine AdvReac Verified 01/12/17 14:58 ropinirole AdvReac Verified 01/12/17 14:59 - History of Present Illness History of Present Illness: Pt S/P colon resection. Now for abx and TPN poor venous acess request PICC by surgeon - Past Medical History Past Medical History: Dyslipidemia, Hypertension, Hyperthyroidism - Past Surgical History Surgical History: Abdominal Surgery, Appendectomy, Cholecystectomy, Hysterectomy , Other - Family History Family Medical History: Diabetes Mellitus, Cancer, [place], Heart Failure, Hypertension - Social History Does patient currently use any type of tobacco product: (uses a 3% Nicotene vape) Have you used tobacco products in the last 12 months: No Type of Tobacco Use: None How many years tobacco product used: 30 Does any household member use tobacco: No Alcohol Use: None Drug Use: None - Medications Home Medications: Lactobac 42/Bifid 8/Colost/Fos [Probiotic Plus Colostrum Powd] 1 pack PO DAILY 03/10/17 [History Confirmed 03/10/17] - Review of Systems Constitutional: Sweats Eyes: No Symptoms Reported ENT: No Symptoms Reported Respiratory: See HPI Cardiovascular: No Symptoms Reported Gastrointestinal: Abdominal Pain Genitourinary: No Symptoms Reported Musculoskeletal: No Symptoms Reported Skin: See HPI, Bruising Neurological: No Symptoms Reported - Physical Exam Vital Signs: Temperature 97.8 F Pulse Rate [Apical] 105 Pulse Rate [Right] 115 Pulse Rate 125 Respiratory Rate 16 Blood Pressure [Right Arm] 122/74 Blood Pressure 122/74 O2 Sat by Pulse Oximetry 96 Oriented: Normal Eyes: Normal Ear: Normal Nose: Normal Throat: Normal Respiratory: Clear Throughout Cardiovascular: Tachycardia : Normal Auscultation: Bowel Sounds: Decreased Tenderness: Diffuse Skin: Normal Musculoskeletal: Normal Psychiatric: Normal Mood Description: Calm Affect: Normal Speech Pattern: Clear (L PICC) - Plan Plan: l PICC Procedures (ALL) - Central Line Placement PCM.CLCO: written consent Time out performed: Yes Patient placed pm monitor/pulse ox: Yes MD prep: mask, gown, gloves Centrial line prep: chlorhexidine scrub, sterile drapes applied Local anesthsia used: lidocane 1% Ultrasound used for placement: Yes Central line lumen ininserted: double Post procedure: good blood return, all ports aspirated, flushed,capped, sterile dressing applied Post procedure xray: tip oc catheter in good position (Inital CXR revealed tip curled in SVC aprox 2-3 cm. withdrawn 3cms), no pneumothorax seen Patient tolerated procedure: Yes Complications: none
--- NOTE | 2017-03-12 23:29 | RAD ---
Chest, AP portable Indication: CVL placement Comparison: 01/13/2017 Findings: There is a left upper extremity take which crosses midline, but is looped upon itself, with the tip pointed to the left. Gastric tube courses below the diaphragm, but the tip is not visualized . The cardiac and mediastinal contours within normal limits. The lungs are grossly clear aside for mi ld bibasilar atelectasis. No significant pleural effusion or pneumothorax identified. Impression: Left upper extremity PICC looped upon itself with the tip pointing to the left, possibly within the a zygos vein. Recommend repositioning with repeat imaging. Mild bibasilar atelectasis without acute chest process. Reported By:
[2017-03-13] MEDS: D5 1/2 NS + KCL 20 MEQ/L 1,000 ML IV SCH ×3 (03:53→15:47)
[2017-03-13] MEDS: FLAGYL IV PREMIX 500 MG BAG 500 MG/100 ML BAG IV SCH ×3 (03:53→18:01)
[2017-03-13] MEDS: LOPRESSOR INJ 5 MG AMP IVP SCH ×4 (04:03→22:37)
[2017-03-13] MEDS: CLEOCIN 600 MG IV PREMIX 600 MG/50 ML BAG IV SCH ×3 (06:18→21:09)
[2017-03-13] MEDS: HEPARIN SODIUM INJ 5000 UNITS SC SCH ×2 (06:18→15:07)
[2017-03-13 06:28] LABS: BASOPHILS % (AUTO) 0.5 % (0.2-1.0); EOSINOPHILS # (AUTO) 0.3 x10^3/uL (0.0-0.2); EOSINOPHILS % (AUTO) 3.4 % (0.9-2.9); HEMATOCRIT 25.4 % (36.0-47.0); HEMOGLOBIN 8.5 g/dL (12.0-16.0); LYMPHOCYTES # (AUTO) 1.2 X10^3/uL (1.3-2.9); LYMPHOCYTES % (AUTO) 13.6 % (21.0-51.0); MEAN CORPUSCULAR HEMOGLOBIN 26.5 pg (27.0-34.0); MEAN CORPUSCULAR HGB CONC 33.4 g/dL (33.0-35.0); MEAN CORPUSCULAR VOLUME 79.4 fL (80.0-100.0); MEAN PLATELET VOLUME 10.3 fL (7.4-11.0); MONOCYTES # (AUTO) 0.5 x10^3/uL (0.3-0.8); MONOCYTES % (AUTO) 5.4 % (0.0-13.0); NEUTROPHILS # (AUTO) 6.5 x10^3/uL (2.2-4.8); NEUTROPHILS % (AUTO) 77.1 % (42.0-75.0); PLATELET COUNT 185 X10^3/uL (150.0-450.0); RED CELL DISTRIBUTION WIDTH 14.4 % (11.6-16.5); WHITE BLOOD COUNT 8.5 X10^3/uL (3.6-10.0)
[2017-03-13 06:42] LABS: ALANINE AMINOTRANSFERASE 54 Units/L (12-78); ALBUMIN 2.4 g/dL (3.4-5.0); ALKALINE PHOSPHATASE 64 Units/L (46-116); ASPARTATE AMINO TRANSFERASE 27 Units/L (15-37); BLOOD UREA NITROGEN 5 mg/dL (7-18); CALCIUM 8.3 mg/dL (8.5-10.1); CARBON DIOXIDE 27.2 mmol/L (21-32); CHLORIDE 105 mmol/L (98-107); COR CA(FOR HYPOALB) 9.6 mg/dL (8.5-10.1); COR NA(FOR HYPERGLY) 141 mmol/L (136-145); CREATININE 0.79 mg/dL (0.55-1.02); MAGNESIUM 2.1 mg/dL (1.7-2.9); SODIUM 140 mmol/L (136-145); TOTAL PROTEIN 6.4 g/dL (6.4-8.2); eGFR BLACK RACES > 60 (>60); eGFR NON BLACK RACES > 60 (>60)
[2017-03-13 09:35] LABS: FREE T4 (FREE THYROXINE) 0.89 ng/dL (0.76-1.46); TSH (3RD GENERATION) 4.263 uIU/mL (0.358-3.74)
[2017-03-13] MEDS: TORADOL 30 MG VIAL IVP PRN (09:43)
[2017-03-13] MEDS: SYNTHROID INJ 100 mcg VIAL IVP SCH ×2 (09:43→10:30)
[2017-03-13] MEDS: PROTONIX INJ 40 MG VIAL IVP SCH (09:44)
[2017-03-13] MEDS ORDERED: PHARMACY CONSULT - TPN XX SCH (14:00)
[2017-03-13] MEDS: PROCALAMINE 3 % 1,000 ML IV SCH (14:42)
[2017-03-13] MEDS ORDERED: NAMENDA TAB 10 MG PO SCH (14:56)
[2017-03-13] MEDS ORDERED: MIRALAX POWDER (1 DOSE 17GM) PO ONE (15:00)
[2017-03-13] MEDS: ZOFRAN INJ 4 MG VIAL IVP PRN (15:08)
[2017-03-13] MEDS: DILAUDID INJ IVP PRN (21:08)
[2017-03-14] MEDS: FLAGYL IV PREMIX 500 MG BAG 500 MG/100 ML BAG IV SCH ×3 (02:39→20:02)
[2017-03-14] MEDS: D5 1/2 NS + KCL 20 MEQ/L 1,000 ML IV SCH ×3 (02:39→12:11)
[2017-03-14 05:29] LABS: BASOPHILS # (AUTO) 0.1 X10^3/uL (0.0-0.1); EOSINOPHILS # (AUTO) 0.3 x10^3/uL (0.0-0.2); EOSINOPHILS % (AUTO) 4.3 % (0.9-2.9); HEMOGLOBIN 8.3 g/dL (12.0-16.0); LYMPHOCYTES # (AUTO) 1.2 X10^3/uL (1.3-2.9); MEAN CORPUSCULAR HEMOGLOBIN 26.5 pg (27.0-34.0); MEAN CORPUSCULAR HGB CONC 33.2 g/dL (33.0-35.0); MEAN CORPUSCULAR VOLUME 79.9 fL (80.0-100.0); MEAN PLATELET VOLUME 10.1 fL (7.4-11.0); MONOCYTES # (AUTO) 0.4 x10^3/uL (0.3-0.8); MONOCYTES % (AUTO) 6.4 % (0.0-13.0); NEUTROPHILS # (AUTO) 4.9 x10^3/uL (2.2-4.8); NEUTROPHILS % (AUTO) 71.3 % (42.0-75.0); PLATELET COUNT 217 X10^3/uL (150.0-450.0); RED BLOOD COUNT 3.12 X10^6/uL (3.5-5.4); RED CELL DISTRIBUTION WIDTH 14.6 % (11.6-16.5); WHITE BLOOD COUNT 6.8 X10^3/uL (3.6-10.0)
[2017-03-14] MEDS: CLEOCIN 600 MG IV PREMIX 600 MG/50 ML BAG IV SCH ×3 (05:29→22:09)
[2017-03-14] MEDS: LOPRESSOR INJ 5 MG AMP IVP SCH ×4 (05:35→22:09)
[2017-03-14 06:37] LABS: ALANINE AMINOTRANSFERASE 46 Units/L (12-78); ALBUMIN 2.3 g/dL (3.4-5.0); ALKALINE PHOSPHATASE 71 Units/L (46-116); ASPARTATE AMINO TRANSFERASE 23 Units/L (15-37); BLOOD UREA NITROGEN 8 mg/dL (7-18); CALCIUM 8.1 mg/dL (8.5-10.1); CARBON DIOXIDE 26.3 mmol/L (21-32); CHLORIDE 105 mmol/L (98-107); COR CA(FOR HYPOALB) 9.5 mg/dL (8.5-10.1); COR NA(FOR HYPERGLY) 140 mmol/L (136-145); CREATININE 0.77 mg/dL (0.55-1.02); SODIUM 138 mmol/L (136-145); TOTAL PROTEIN 6.2 g/dL (6.4-8.2); eGFR BLACK RACES > 60 (>60); eGFR NON BLACK RACES > 60 (>60)
[2017-03-14] MEDS: SYNTHROID INJ 100 mcg VIAL IVP SCH (08:18)
[2017-03-14] MEDS: PROTONIX INJ 40 MG VIAL IVP SCH (08:20)
[2017-03-14] MEDS: LOVENOX INJ 30 MG SYR SC SCH (08:21)
[2017-03-14] MEDS: DILAUDID INJ IVP PRN ×3 (08:58→22:08)
[2017-03-14] MEDS: PROCALAMINE 3 % 1,000 ML IV SCH (14:28)
[2017-03-15] MEDS: FLAGYL IV PREMIX 500 MG BAG 500 MG/100 ML BAG IV SCH ×3 (02:28→18:00)
[2017-03-15] MEDS: DILAUDID INJ IVP PRN ×4 (03:15→21:26)
[2017-03-15 04:53] LABS: BASOPHILS # (AUTO) 0.1 X10^3/uL (0.0-0.1); BASOPHILS % (AUTO) 0.8 % (0.2-1.0); EOSINOPHILS # (AUTO) 0.3 x10^3/uL (0.0-0.2); EOSINOPHILS % (AUTO) 4.5 % (0.9-2.9); HEMATOCRIT 24.3 % (36.0-47.0); LYMPHOCYTES # (AUTO) 1.1 X10^3/uL (1.3-2.9); LYMPHOCYTES % (AUTO) 15.5 % (21.0-51.0); MEAN CORPUSCULAR HEMOGLOBIN 26.3 pg (27.0-34.0); MEAN CORPUSCULAR HGB CONC 32.8 g/dL (33.0-35.0); MEAN CORPUSCULAR VOLUME 80.2 fL (80.0-100.0); MEAN PLATELET VOLUME 9.4 fL (7.4-11.0); MONOCYTES # (AUTO) 0.6 x10^3/uL (0.3-0.8); MONOCYTES % (AUTO) 8.2 % (0.0-13.0); NEUTROPHILS # (AUTO) 4.9 x10^3/uL (2.2-4.8); PLATELET COUNT 236 X10^3/uL (150.0-450.0); RED BLOOD COUNT 3.03 X10^6/uL (3.5-5.4); RED CELL DISTRIBUTION WIDTH 14.8 % (11.6-16.5); WHITE BLOOD COUNT 6.9 X10^3/uL (3.6-10.0)
[2017-03-15] MEDS: PROCALAMINE 3 % 1,000 ML IV SCH (04:58)
[2017-03-15] MEDS: LOPRESSOR INJ 5 MG AMP IVP SCH ×4 (04:58→22:28)
[2017-03-15] MEDS: CLEOCIN 600 MG IV PREMIX 600 MG/50 ML BAG IV SCH ×3 (05:01→21:26)
[2017-03-15 06:26] LABS: ALANINE AMINOTRANSFERASE 30 Units/L (12-78); ALBUMIN 2.1 g/dL (3.4-5.0); ALKALINE PHOSPHATASE 81 Units/L (46-116); ASPARTATE AMINO TRANSFERASE 22 Units/L (15-37); BLOOD UREA NITROGEN 8 mg/dL (7-18); CALCIUM 8.1 mg/dL (8.5-10.1); CARBON DIOXIDE 28.4 mmol/L (21-32); CHLORIDE 101 mmol/L (98-107); COR CA(FOR HYPOALB) 9.6 mg/dL (8.5-10.1); COR NA(FOR HYPERGLY) 134 mmol/L (136-145); CREATININE 0.65 mg/dL (0.55-1.02); SODIUM 133 mmol/L (136-145); eGFR BLACK RACES > 60 (>60); eGFR NON BLACK RACES > 60 (>60)
[2017-03-15] MEDS: PROTONIX INJ 40 MG VIAL IVP SCH (09:32)
[2017-03-15] MEDS: LOVENOX INJ 30 MG SYR SC SCH (09:32)
[2017-03-15] MEDS: SYNTHROID INJ 100 mcg VIAL IVP SCH (09:32)
[2017-03-15] MEDS: SNACK - Diabetic Appropriate PO SCH ×2 (09:32→21:27)
[2017-03-15] MEDS ORDERED: MIRALAX POWDER (1 DOSE 17GM) PO ONE (09:35)
[2017-03-15] MEDS: ZOFRAN INJ 4 MG VIAL IVP PRN (10:50)
[2017-03-16] MEDS: DILAUDID INJ IVP PRN ×5 (01:48→20:57)
[2017-03-16] MEDS: FLAGYL IV PREMIX 500 MG BAG 500 MG/100 ML BAG IV SCH ×3 (02:00→18:03)
[2017-03-16] MEDS: LOPRESSOR INJ 5 MG AMP IVP SCH ×3 (05:07→16:19)
[2017-03-16 05:53] LABS: BASOPHILS # (AUTO) 0.1 X10^3/uL (0.0-0.1); BASOPHILS % (AUTO) 1.1 % (0.2-1.0); EOSINOPHILS # (AUTO) 0.3 x10^3/uL (0.0-0.2); EOSINOPHILS % (AUTO) 4.1 % (0.9-2.9); HEMATOCRIT 26.2 % (36.0-47.0); HEMOGLOBIN 8.8 g/dL (12.0-16.0); LYMPHOCYTES # (AUTO) 1.3 X10^3/uL (1.3-2.9); MEAN CORPUSCULAR HEMOGLOBIN 26.5 pg (27.0-34.0); MEAN CORPUSCULAR HGB CONC 33.6 g/dL (33.0-35.0); MEAN CORPUSCULAR VOLUME 78.9 fL (80.0-100.0); MONOCYTES # (AUTO) 0.6 x10^3/uL (0.3-0.8); MONOCYTES % (AUTO) 6.8 % (0.0-13.0); PLATELET COUNT 267 X10^3/uL (150.0-450.0); RED BLOOD COUNT 3.32 X10^6/uL (3.5-5.4); RED CELL DISTRIBUTION WIDTH 14.8 % (11.6-16.5); WHITE BLOOD COUNT 8.4 X10^3/uL (3.6-10.0)
[2017-03-16] MEDS: CLEOCIN 600 MG IV PREMIX 600 MG/50 ML BAG IV SCH ×3 (05:55→21:04)
[2017-03-16 06:10] LABS: ALANINE AMINOTRANSFERASE 35 Units/L (12-78); ALBUMIN 2.4 g/dL (3.4-5.0); ALKALINE PHOSPHATASE 93 Units/L (46-116); ASPARTATE AMINO TRANSFERASE 22 Units/L (15-37); BLOOD UREA NITROGEN 8 mg/dL (7-18); CALCIUM 8.4 mg/dL (8.5-10.1); CHLORIDE 102 mmol/L (98-107); COR CA(FOR HYPOALB) 9.7 mg/dL (8.5-10.1); COR NA(FOR HYPERGLY) 138 mmol/L (136-145); CREATININE 0.67 mg/dL (0.55-1.02); MAGNESIUM 1.7 mg/dL (1.7-2.9); SODIUM 137 mmol/L (136-145); TOTAL PROTEIN 6.5 g/dL (6.4-8.2); eGFR BLACK RACES > 60 (>60); eGFR NON BLACK RACES > 60 (>60)
[2017-03-16] MEDS: LOVENOX INJ 30 MG SYR SC SCH (08:29)
[2017-03-16] MEDS: PROTONIX INJ 40 MG VIAL IVP SCH (08:29)
[2017-03-16] MEDS: SYNTHROID INJ 100 mcg VIAL IVP SCH (08:30)
--- NOTE | 2017-03-16 14:45 | PCM.PROG ---
Progress Note - Progress Note for Day of Date: 03/16/17 - Subjective Subjective: NGT removed. (-) N/V. Increasing flatus. (-) BM. Pain controlled. (+) ambulating. - Past Medical Family Social History Allergies: Allergies Penicillins Allergy (Verified 01/12/17 14:57) ciprofloxacin [From Cipro] Adverse Reaction (Verified 01/13/17 02:11) codeine Adverse Reaction (Verified 01/12/17 14:58) ropinirole Adverse Reaction (Verified 01/12/17 14:59) - Vital Signs and I&O's Vital Signs: Temperature 98.5 F Pulse Rate [Apical] 90 Pulse Rate [Right] 94 Pulse Rate 125 Respiratory Rate 18 Blood Pressure [Right Arm] 127/72 Blood Pressure 128/74 O2 Sat by Pulse Oximetry 96 Intake and Output: Intake & Output 03/14/17 03/15/17 03/16/17 03/17/17 11:59 11:59 11:59 11:59 Intake Total 2570 1200 1300 520 Output Total 900 2000 3550 Balance 7200 800 -2250 520 - Physical Exam Oriented: Normal Eyes: Normal Ear: Normal Nose: Normal Throat: Normal Respiratory: Normal Cardiovascular: Tachycardia : Normal Auscultation: Bowel Sounds: Decreased Tenderness: Diffuse Skin: Normal Musculoskeletal: Normal Psychiatric: Normal Mood Description: Calm Affect: Normal Speech Pattern: Clear - Laboratory and Diagnostics Result Diagrams: 03/16/17 03:32 03/16/17 03:32 Labs: Laboratory WBC 8.4 X10^3/uL (3.6-10.0) 03/16/17 03:32 RBC 3.32 X10^6/uL (3.5-5.4) L 03/16/17 03:32 Hgb 8.8 g/dL (12.0-16.0) L 03/16/17 03:32 Hct 26.2 % (36.0-47.0) L 03/16/17 03:32 MCV 78.9 fL (80.0-100.0) L 03/16/17 03:32 MCH 26.5 pg (27.0-34.0) L 03/16/17 03:32 MCHC 33.6 g/dL (33.0-35.0) 03/16/17 03:32 RDW 14.8 % (11.6-16.5) 03/16/17 03:32 Plt Count 267 X10^3/uL (150.0-450.0) 03/16/17 03:32 MPV 9.0 fL (7.4-11.0) 03/16/17 03:32 Neut % 72.0 % (42.0-75.0) 03/16/17 03:32 Lymph % 16.0 % (21.0-51.0) L 03/16/17 03:32 [place] % 6.8 % (0.0-13.0) 03/16/17 03:32 Eos % 4.1 % (0.9-2.9) H 03/16/17 03:32 Baso % 1.1 % (0.2-1.0) H 03/16/17 03:32 Neut # 6.0 x10^3/uL (2.2-4.8) H 03/16/17 03:32 Lymph # 1.3 X10^3/uL (1.3-2.9) 03/16/17 03:32 [place] # 0.6 x10^3/uL (0.3-0.8) 03/16/17 03:32 Eos # 0.3 x10^3/uL (0.0-0.2) H 03/16/17 03:32 Baso # 0.1 X10^3/uL (0.0-0.1) 03/16/17 03:32 Absolute Nucleated RBC 0.0 /100WBC 03/16/17 03:32 PTT 32.0 SECONDS (22.9-36.5) 03/11/17 05:55 PTT Comment - 03/11/17 05:55 Sodium 137 mmol/L (136-145) 03/16/17 03:32 Corrected Sodium 138 mmol/L (136-145) 03/16/17 03:32 Potassium 3.5 mmol/L (3.5-5.1) 03/16/17 03:32 Chloride 102 mmol/L (98-107) 03/16/17 03:32 Carbon Dioxide 28.0 mmol/L (21-32) 03/16/17 03:32 BUN 8 mg/dL (7-18) 03/16/17 03:32 Creatinine 0.67 mg/dL (0.55-1.02) 03/16/17 03:32 Est GFR (MDRD) Af Amer > 60 (>60) 03/16/17 03:32 Est GFR (MDRD) Non-Af > 60 (>60) 03/16/17 03:32 Glucose 151 mg/dL (65-99) H 03/16/17 03:32 POC Glucose (mg/dL) 171 mg/dL (65-99) H 03/16/17 11:28 Calcium 8.4 mg/dL (8.5-10.1) L 03/16/17 03:32 Corrected Calcium 9.7 mg/dL (8.5-10.1) 03/16/17 03:32 Magnesium 1.7 mg/dL (1.7-2.9) 03/16/17 03:32 Total Bilirubin 0.30 mg/dL (0.2-1.0) 03/16/17 03:32 AST 22 Units/L (15-37) 03/16/17 03:32 ALT 35 Units/L (12-78) 03/16/17 03:32 Alkaline Phosphatase 93 Units/L (46-116) 03/16/17 03:32 Total Protein 6.5 g/dL (6.4-8.2) 03/16/17 03:32 Albumin 2.4 g/dL (3.4-5.0) L 03/16/17 03:32 Globulin 4.1 g/dL (2.5-4.5) 03/16/17 03:32 Albumin/Globulin Ratio 0.6 Ratio (1.1-2.1) L 03/16/17 03:32 Free T4 0.89 ng/dL (0.76-1.46) 03/13/17 05:25 TSH 3rd Generation 4.263 uIU/mL (0.358-3.74) H 03/13/17 05:25 Specimen Type Catherized urine 03/10/17 17:51 Urine Color Yellow (YELLOW) 03/10/17 17:51 Urine Appearance Slightly hazy (CLEAR) 03/10/17 17:51 Urine pH 5.0 (5.0 - 8.0) 03/10/17 17:51 Ur Specific [place] 1.015 (1.000-1.030) 03/10/17 17:51 Urine Protein 1+ (NEGATIVE) 03/10/17 17:51 Urine Glucose (UA) Negative (NEGATIVE) 03/10/17 17:51 Urine Ketones Negative (NEGATIVE) 03/10/17 17:51 Urine Occult Blood Negative (NEGATIVE) 03/10/17 17:51 Urine Nitrite Negative (NEGATIVE) 03/10/17 17:51 Urine Bilirubin Negative (NEGATIVE) 03/10/17 17:51 Urine Urobilinogen Normal (NORMAL) 03/10/17 17:51 Ur Leukocyte Esterase 1+ (NEGATIVE) 03/10/17 17:51 Urine RBC None seen /HPF (NEGATIVE) 03/10/17 17:51 Urine WBC 0-1 /HPF (NEGATIVE) 03/10/17 17:51 Ur Squamous Epith Cells Few /HPF (NEGATIVE) 03/10/17 17:51 Ur Renal Epithelial Cell Rare /HPF (NEGATIVE) 03/10/17 17:51 Amorphous Sediment Trace /HPF (NEGATIVE) 03/10/17 17:51 Urine Bacteria Trace /HPF (NEGATIVE) 03/10/17 17:51 Ur Culture Indicated? No/not indicated 03/10/17 17:51 Tissue Pathology To follow 03/10/17 17:51 - Plan (1) Postoperative abdominal pain Status: Acute Plan: POD #6 ex-lap / extensive MARCIN / transverse colectomy. Improved bowel function. Slowly advance diet. Pulmonary toilet. Continue abx for intra-abd contamination but likely stop soon. Continue TPN until diet advanced. Continue DVT ppx.
[2017-03-16] MEDS: PROCALAMINE 3 % 1,000 ML IV SCH (16:43)
[2017-03-16] MEDS: SNACK - Diabetic Appropriate PO SCH (20:57)
[2017-03-17] MEDS: LOPRESSOR INJ 5 MG AMP IVP SCH ×3 (00:16→10:25)
[2017-03-17] MEDS: FLAGYL IV PREMIX 500 MG BAG 500 MG/100 ML BAG IV SCH ×2 (03:25→10:24)
[2017-03-17 05:28] LABS: ALANINE AMINOTRANSFERASE 25 Units/L (12-78); ALBUMIN 2.2 g/dL (3.4-5.0); ALKALINE PHOSPHATASE 80 Units/L (46-116); ASPARTATE AMINO TRANSFERASE 19 Units/L (15-37); BLOOD UREA NITROGEN 5 mg/dL (7-18); CALCIUM 8.3 mg/dL (8.5-10.1); CARBON DIOXIDE 26.2 mmol/L (21-32); CHLORIDE 100 mmol/L (98-107); COR CA(FOR HYPOALB) 9.7 mg/dL (8.5-10.1); COR NA(FOR HYPERGLY) 136 mmol/L (136-145); CREATININE 0.71 mg/dL (0.55-1.02); SODIUM 135 mmol/L (136-145); TOTAL PROTEIN 6.2 g/dL (6.4-8.2); eGFR BLACK RACES > 60 (>60); eGFR NON BLACK RACES > 60 (>60)
[2017-03-17] MEDS: CLEOCIN 600 MG IV PREMIX 600 MG/50 ML BAG IV SCH ×2 (05:44→15:59)
[2017-03-17 05:46] LABS: BASOPHILS # (AUTO) 0.1 X10^3/uL (0.0-0.1); BASOPHILS % (AUTO) 1.3 % (0.2-1.0); EOSINOPHILS # (AUTO) 0.4 x10^3/uL (0.0-0.2); HEMATOCRIT 25.7 % (36.0-47.0); HEMOGLOBIN 8.6 g/dL (12.0-16.0); LYMPHOCYTES # (AUTO) 1.5 X10^3/uL (1.3-2.9); LYMPHOCYTES % (AUTO) 18.4 % (21.0-51.0); MEAN CORPUSCULAR HEMOGLOBIN 26.6 pg (27.0-34.0); MEAN CORPUSCULAR HGB CONC 33.5 g/dL (33.0-35.0); MEAN CORPUSCULAR VOLUME 79.4 fL (80.0-100.0); MEAN PLATELET VOLUME 9.4 fL (7.4-11.0); MONOCYTES # (AUTO) 0.5 x10^3/uL (0.3-0.8); MONOCYTES % (AUTO) 6.7 % (0.0-13.0); NEUTROPHILS # (AUTO) 5.5 x10^3/uL (2.2-4.8); NEUTROPHILS % (AUTO) 68.6 % (42.0-75.0); PLATELET COUNT 285 X10^3/uL (150.0-450.0); RED BLOOD COUNT 3.24 X10^6/uL (3.5-5.4); RED CELL DISTRIBUTION WIDTH 14.6 % (11.6-16.5)
[2017-03-17] MEDS: DILAUDID INJ IVP PRN (07:11)
[2017-03-17] MEDS: LOVENOX INJ 30 MG SYR SC SCH (09:50)
[2017-03-17] MEDS: PROTONIX INJ 40 MG VIAL IVP SCH (09:55)
[2017-03-17] MEDS: SYNTHROID INJ 100 mcg VIAL IVP SCH (09:55)
[2017-03-17] MEDS ORDERED: MORPHINE SULFATE INJ 2 MG INJ ONE (11:27)
[2017-03-17] MEDS: ZOFRAN INJ 4 MG VIAL IVP PRN (11:30)
[2017-03-17] MEDS ORDERED: MORPHINE SULFATE INJ 2 MG INJ IVP ONE (11:30)
[2017-03-17 12:10] VITALS: BP 140/80
== END 2017-03-17 16:05 | disposition home or self-care (01) | DRG 331 ==
LOC: SURG1 09:45 → ICU 18:13 → MED/SURG 03-13 14:00
PROVIDERS: ADMIT Internal Medicine; ATTEND Internal Medicine
PROC: 0DB Gastrointestinal System, Excision (ICD-10-PCS; principal; 2017-03-10 11:30)
PROC: 0D1 Gastrointestinal System, Bypass (ICD-10-PCS; 2017-03-10 11:30)
PROC: 02HV33Z Insertion of Infusion Device into Superior Vena Cava, Percutaneous Approach (ICD-10-PCS; 2017-03-12)
PROC: B548ZZA Ultrasonography of Superior Vena Cava, Guidance (ICD-10-PCS; 2017-03-12)
DX: K66.0 Peritoneal adhesions (postprocedural) (postinfection) (principal); E78.2 Mixed hyperlipidemia; I10 Essential (primary) hypertension; R00.0 Tachycardia, unspecified; R10.33 Periumbilical pain; R26.89 Other abnormalities of gait and mobility
CPT/HCPCS: 36415; 71010; 80048; 80053; 81001; 83735; 84439; 84443; 85025; 85730; 94640; A4222; B5200; C9113; S0020; S0030; J0077; J1170; J1644; J1650; J1885; J2001; J2270; J2370; J2405; J2710; J3010; J3490; J7120; S0077

== ENCOUNTER → 2017-07-28 | Outpatient (CLI) | payer BC ==
[2017-07-28 08:41] LABS: CREATININE 0.95 mg/dL (0.55-1.02)
--- NOTE | 2017-07-28 10:53 | CT ---
HISTORY: Abdominal pain Study: CT abdomen and pelvis with contrast Comparison: 01/13/2017 Technique: Multiple axial images of the abdomen and pelvis were obtained from the lung bases to the pubic symphy sis after the administration of IV contrast. Reformatted coronal and sagittal planes were produced as well. Findings: The lung bases are clear. Abutting the inferior margin of the greater curvature of the stomach is a spiculated and somewhat het erogeneously enhancing soft tissue mass which measures approximately 2.7 cm x 2.2 cm in greatest axia l dimensions. This lesion is best demonstrated on series 4 images 37 through 40. The lesion appears t o extend inferiorly and anteriorly along the left ventral abdominal wall, where there is soft tissue thickening or possible infiltration of the abdominal wall by the spiculated and stellate lesion. This soft tissue thickening or infiltration measures approximately 2.0 cm in AP dimension by 4.8 cm in tr ansverse dimension and is located just inferiorly and anteriorly to the mass, best demonstrated on se melissa 4, image 42. There is surrounding mild mesenteric infiltration and stranding as well as what pia ears to be at least 1 small calcification along the inferior and medial aspect of the lesion. Along t he infiltration or soft tissue thickening of the ventral abdominal wall is a small bowel loop which a ppears possibly adhered or tethered to the thickened abdominal wall, best demonstrated on series 4 im ages 43 through 48. There also appears to be postsurgical changes subjacent to the thickened abdomina l wall, where there are least 2 surgical clips identified. These findings together could represent a desmoid tumor given the CT characteristics and location near prior abdominal surgery. However, given the spiculated and stellate appearance of the soft tissue mass abutting the greater curvature of the stomach, carcinoid tumor should be considered as well. Infiltration of the greater curvature is not e xcluded. Other possible but less favored differential considerations include, but are not limited to, omental or mesenteric metastases, possible subacute hematoma due to mesenteric trauma, and sclerosin g mesenteritis. The liver is diffusely low attenuating, consistent with hepatic steatosis. The liver is also enlarged in transverse dimension. The patient is status postcholecystectomy. The stomach wall does not appear significantly thickened at the point of abutment by of the above described soft tiss ue lesion. The pancreas, spleen, and bilateral adrenal glands are unremarkable. The kidneys demonstra te normal postcontrast enhancement. There is no hydronephrosis. There are no dilated loops of bowel i dentified to suggest obstruction. The colon is unremarkable. The appendix is not identified and may b e surgically absent. The uterus is also surgically absent. The urinary bladder is mostly decompressed . No free fluid or extraluminal free air is identified within the abdomen or pelvis. A few mildly pro minent mesenteric lymph nodes are identified, none of which are pathologically enlarged by CT criteri a. The bony structures are intact. IMPRESSION: 1. Spiculated soft tissue mass abutting the greater curvature of the stomach and extending along the left ventral abdominal wall, where there may be infiltration of the abdominal wall. This lesion may r epresent a desmoid tumor given adjacent postsurgical changes of the abdomen. However, carcinoid tumor should be considered as well. Please see above discussion for complete details and other possible bu t less favored differential considerations. 2. Hepatic steatosis and hepatomegaly. Reported By:
== END ==
LOC: RAD 07:45
PROVIDERS: ATTEND Nurse Practitioner Family
DX: R10.84 Generalized abdominal pain (principal); R93.5 Abnormal findings on diagnostic imaging of other abdominal regions, including retroperitoneum
CPT/HCPCS: 36415; 74177; 82565; 84520; A4222

== ENCOUNTER 2017-08-18 07:31 | Day surgery (SDC) | payer BC ==
[~2017-08-18 07:31] MED LIST changes: +LR 1000 ML IV 1,000 ML IV ONE; -NS 100 ML IV 100 ML IV ONE
[2017-08-18] MEDS ORDERED: FENTANYL INJ 100 mcg ONE (08:04)
[2017-08-18] MEDS ORDERED: NS IRRIGATION 1000 ML 1,000 ML IR ONE (08:50)
[2017-08-18] MEDS ORDERED: MARCAINE 0.25% INJ ONE (09:06)
[2017-08-18] MEDS ORDERED: XYLOCAINE 1% and EPINEPHRINE 1:100,000 ONE (09:06)
[2017-08-18] MEDS ORDERED: CLEOCIN 600 MG IV PREMIX 600 MG/50 ML BAG IV ONE (09:37)
[2017-08-18] MEDS ORDERED: NEOSPORIN OINT ONE (09:52)
--- NOTE | 2017-08-18 10:14 | OR.GENERIC ---
Post-Op Note Generic - Post-Op Note Operative Report: Operative Report Date of Operation: August 18, 2017 Pre-Operative Diagnosis: Recurrent abdominal wound status post segmental colectomy. Post-Operative Diagnosis: Abdominal wound with necrotic tissue and excessive granulation tissue. Procedure: Excisional debridement of abdominal wound (skin and subcutaneous tissue) with a scalpel. Surgeon: Sergio Hull MD Network Manager: Maricruz Good CRNA Anesthesia: Monitored anesthesia care and local. Specimen: Wound culture. Estimated blood loss: Minimal. Complications: None. Summary: The patient is a 52 year old female who presented with persistent drainage from a recrrent abdominal wound after a segmental colectomy. The patient was offered wound exploration and excisional debridement. The risk and benefits of the procedure including difficulty with anesthesia, bleeding, infection, scar formation, and delayed healing were discussed with the patient. The patient understood these risks and requested the procedure. On Friday, August 18, 2017, the patient was brought to the operative theatre. A time out was performed verifying the patient and the procedure. After satisfactory induction of monitored anesthesia care, the abdomen was prepped with betadine and draped in the usual fashion. The skin edges were excised in a fusiform fashion with a scalpel. Necrotic tissue was noted in the subcutaneous space along with excessive granulation tissue. The granulation tissue was noted to bleed easily with manipulation. The necrotic subcutaneous tissue was excised sharply with a scalpel. The wound was noted to track superiorly and deep. Fascia was not encountered. The wound was copiously irrigated. Bleeding was controlled using electrocautery. The deep tissue was approximated using interrupted 0 Vicryl sutures. The subcutaneous tissue as closed using interrupted, inverted 2-0 PDS suture. Interrupted, dermal 2-0 PDS sutures were placed. The skin was approximated using a running 4-0 Nylon suture. Sterile dressings were placed. The patient was awakened and taken to the recovery room in stable condition. There were no complications. All counts were correct.
[2017-08-18 10:52] VITALS: BP 104/68
[2017-08-18] MEDS ORDERED: VERSED ONE (15:29)
[2017-08-18] MEDS ORDERED: DIPRIVAN VIAL ONE (15:29)
== END 2017-08-18 10:45 | disposition home or self-care (01) | DRG 903 ==
LOC: SURG1 07:31
PROVIDERS: ATTEND Student in an Organized Health Care Education/Training Program
PROC: 0JB80ZZ Excision of Abdomen Subcutaneous Tissue and Fascia, Open Approach (ICD-10-PCS; principal; 2017-08-18 08:30)
DX: T81.31XA Disruption of external operation (surgical) wound, not elsewhere classified, initial encounter (principal); B96.89 Other specified bacterial agents as the cause of diseases classified elsewhere
CPT/HCPCS: 87070; 87075; 87077; 87186; 87205; A4222; S0020; J0077; J2001; J2250; J3010; J3490; J7120

== ENCOUNTER 2023-06-28 10:36 | Inpatient (IN) ==
[2023-06-28] MEDS ORDERED: ZOFRAN INJ 4 MG VIAL IVP PRN (11:47)
--- NOTE | 2023-06-28 12:07 | DR.H&P ---
H&P History & Physical for Day of: H&P Date: 06/28/23 Chief Complaint Chief Complaint: N/V, LOW BLOOD PRESSURE, PAIN AND SWELLING IN JOINTS Allergies Allergies Allergy/AdvReac Type Severity Reaction Status Date / Time morphine Allergy Verified 09/27/22 19:05 Penicillins Allergy Verified 09/27/22 19:05 ciprofloxacin [From Cipro] AdvReac Verified 09/27/22 19:05 codeine AdvReac Verified 09/27/22 19:05 ropinirole AdvReac Verified 09/27/22 19:05 History of Present Illness History of Present Illness: PT IS 58 WF, DIRECT ADMIT FROM DR HERRON'S OFFICE WITH CO "FEEL LIKE I DID WHEN I WAS SEPTIC" PT REPORTS ONSET OF RIGHT FOOT PAIN WITH REDNESS AND SWELLING ONSET WEDNESDAY. PT REPORTS HER BP RUNNING LOW AND NAUSEA/VOMITING. PT WAS VOMITING IN OFFICE ON EXAM THIS AM. PT BP IN OFFICE 100 SYSTOLIC WITH PULSE 110. PT DENIES ANY RESPIRATORY SYMPTOMS. PT HAS PMH OF HTN, RENAL FAILURE 3A, DIABETES, GERD GOUT, FIBROMYALGIA, AND HYPOTHYROIDISM. PT ADMITTED FOR TREATMENT OF ACUTE ILLNESS Past Medical History Past Medical History: Arthritis, Diabetes, Dyslipidemia, Hypertension and Hypothyroidism Past Surgical History Surgical History: Angioplasty/Stents, Bowel Resection, Cholecystectomy and Hysterectomy Family History Family Medical History: Diabetes Mellitus, Cancer, [place], Heart Failure and Hypertension Medications Home Medications: Home Medications Medication Instructions Recorded Confirmed Type amitriptyline 50 mg tablet 50 mg PO QPM 09/27/22 09/27/22 History atorvastatin 20 mg tablet 20 mg PO QDAY 09/27/22 09/27/22 History baclofen 10 mg tablet 10 mg PO BID 09/27/22 09/27/22 History bisoprolol 2.5 1 tab PO QDAY 09/27/22 09/27/22 History mg-hydrochlorothiazide 6.25 mg tablet buspirone 5 mg tablet 5 mg PO BID 09/27/22 09/27/22 History duloxetine 30 mg capsule,delayed 30 mg PO QDAY 09/27/22 09/27/22 History release duloxetine 60 mg capsule,delayed 60 mg PO HS 09/27/22 09/27/22 History release duloxetine 60 mg capsule,delayed 60 mg PO QDAY 09/27/22 09/27/22 History release (Cymbalta) fenofibrate 160 mg tablet 160 mg PO QDAY 09/27/22 09/27/22 History hydroxychloroquine 200 mg tablet 200 mg PO BID 09/27/22 09/27/22 History levothyroxine 100 mcg tablet 100 mcg PO QDAY 09/27/22 09/27/22 History lisinopril 5 mg tablet 5 mg PO QDAY 09/27/22 09/27/22 History meloxicam 15 mg tablet 15 mg PO QDAY 09/27/22 09/27/22 History metformin 500 mg tablet 1,000 mg PO HS 09/27/22 09/27/22 History metformin 500 mg tablet 500 mg PO QDAY 09/27/22 09/27/22 History minocycline 100 mg capsule 100 mg PO BID 09/27/22 09/27/22 History niacin 500 mg tablet,extended 500 mg PO DAILY 09/27/22 09/27/22 History release 24 hr ondansetron 8 mg disintegrating 8 mg PO TID 09/27/22 09/27/22 History tablet pantoprazole 40 mg tablet,delayed 40 mg PO QDAY 09/27/22 09/27/22 History release pilocarpine HCl 5 mg tablet 5 mg PO TID 09/27/22 09/27/22 History ([place] (pilocarpine)) pramipexole 0.5 mg tablet (Mirapex) 0.5 mg PO QPM 09/27/22 09/27/22 History spironolactone 50 mg tablet 50 mg PO BID 09/27/22 09/27/22 History tramadol 50 mg tablet 50 mg PO Q4H PRN 09/27/22 09/27/22 History Review of Systems Constitutional: Fever, Chills, Sweats, Weakness and Malaise Eyes: No Symptoms Reported ENT: Nose Congestion and Other (DRY MOUTH) Respiratory: SOB with Excertion Cardiovascular: Edema Gastrointestinal: Nausea and Vomiting Genitourinary: Frequency Musculoskeletal: Leg Pain and Foot Pain Skin: Wound (SINGLE PUSTULAR WOUND TO PLANTAR ASPECT RIGHT FOOT) and Other (REDNESS TO LEFT FOOT AT BASE OF GREAT TOE) Neurological: Weakness Oriented: Normal Eyes: Normal Nose: Normal Throat: Dry Respiratory: RLL Diminished and LLL Diminished Cardiovascular: Tachycardia and Edema Auscultation: Bowel Sounds: Increased Tenderness: Normal Skin: Decreased [place], Diaphoresis and Other (MILD DIFFUSE PALLOR ) Musculoskeletal: Leg, Foot and Back:Lumbar Psychiatric: Anxiety Mood Description: Anxious Speech Pattern: Clear and Appropriate Assessment/Plan (1) Gastroenteritis: Narrative Support Text: ADMIT, ADMISION LABS INCLUDING STOOL STUDIES AND CRP, SED RATE, LACTIC ACID AND URIC ACID CXR ON ADMISSION IV ATBX THERAPY BP CONTROL, IV HYDRATON BLOOD AND URINE CULTURES PRN PAIN CONTROL, VERIFY HOME MEDICATIONS Status: Acute (2) Hypotension: Status: Acute (3) Diabetes mellitus: Qualifiers: Diabetes mellitus type: type 2 Status: Acute (4) Nausea, vomiting and diarrhea: Status: Acute (5) HALEY (acute kidney injury): Status: Acute (6) Cellulitis: Status: Acute (7) Gout attack: Status: Acute
[2023-06-28 12:27] LABS: ERYTHROCYTE SEDIMENTATION RATE 130 MM/HOUR (0-20)
[2023-06-28 12:28] LABS: BASOPHILS # (AUTO) 0.1 X10^3/uL (0.0-0.1); BASOPHILS % (AUTO) 1.2 % (0.2-1.0); EOSINOPHILS # (AUTO) 0.3 x10^3/uL (0.0-0.2); EOSINOPHILS % (AUTO) 2.5 % (0.9-2.9); HEMATOCRIT 31.4 % (36.0-47.0); HEMOGLOBIN 9.8 g/dL (12.0-16.0); LYMPHOCYTES # (AUTO) 0.9 X10^3/uL (1.3-2.9); LYMPHOCYTES % (AUTO) 7.7 % (21.0-51.0); MEAN CORPUSCULAR HEMOGLOBIN 24.3 pg (27.0-34.0); MEAN CORPUSCULAR HGB CONC 31.2 g/dL (33.0-35.0); MEAN CORPUSCULAR VOLUME 77.8 fL (80.0-100.0); MEAN PLATELET VOLUME 9.9 fL (7.4-11.0); MONOCYTES # (AUTO) 0.7 x10^3/uL (0.3-0.8); MONOCYTES % (AUTO) 6.4 % (0.0-13.0); NEUTROPHILS # (AUTO) 9.3 x10^3/uL (2.2-4.8); NEUTROPHILS % (AUTO) 82.2 % (42.0-75.0); PLATELET COUNT 318 X10^3/uL (150.0-450.0); RED BLOOD COUNT 4.03 X10^6/uL (3.5-5.4); RED CELL DISTRIBUTION WIDTH 15.8 % (11.6-16.5); WHITE BLOOD COUNT 11.3 X10^3/uL (3.6-10.0)
[2023-06-28 12:40] LABS: CALCIUM 9.1 mg/dL (8.5-10.1); CARBON DIOXIDE 24.9 mmol/L (21-32); COR CA(FOR HYPOALB) 9.9 mg/dL (8.5-10.1); CREATININE 2.53 mg/dL (0.55-1.02); MAGNESIUM 1.7 mg/dL (2.0-2.9); POTASSIUM 4.6 mmol/L (3.5-5.1); TOTAL PROTEIN 8.3 g/dL (6.4-8.2); URIC ACID 6.1 mg/dL (2.6-6.0)
[2023-06-28 12:48] VITALS: BMI 27.9
[2023-06-28] MEDS: NS 1,000 ML IV 1,000 ML IV SCH (13:39)
[2023-06-28] MEDS: PROTONIX INJ 40 MG VIAL IVP SCH (13:39)
[2023-06-28] MEDS: NS 1,000 ML IV 500 ML IV ONE (13:39)
--- NOTE | 2023-06-28 14:31 | RAD ---
EXAM:CHEST, 1 VIEWHISTORY:WEAKNESS, SOB;COMPARISON:Prior study or studies were utilized for comparison during interpretation with the most relevant dated 09/27/2022TECHNIQUE:CHEST, 1 VIEWFINDINGS:Chest:Lines and tubes: NoneMediastinum: Cardiac and mediastinal shadow is within normal limits for size and contour.Pulmonary vessels: No pulmonary vascular congestion.Lung padilla: No suspicious airspace opacity.Pleura: No effusion. No pneumothorax.Bones and soft tissues: No acute osseous or soft tissue abnormality.IMPRESSION:1. No acute cardiopulmonary abnormalityTHIS IS AN ELECTRONICALLY VERIFIED FINAL REPORT06/28/2023 2:28 PM - Electronically signed by Reg Sánchez MD
[2023-06-28] MEDS: NORCO 5/325 MG TAB PO PRN (15:59)
[2023-06-28] MEDS: NS 1,000 ML IV 1,000 ML with MAGNESIUM SULFATE 50% INJ VIAL 1 G IV SCH (15:59)
[2023-06-28] MEDS ORDERED: CONSULT PHARMACY - POTASSIUM & MAGNESIUM XX SCH (16:00)
[2023-06-28 16:15] LABS: BILIRUBIN,URINE NEGATIVE (NEGATIVE); BLOOD/HEMOGLOBIN,URINE 1+ (NEGATIVE); GLUCOSE, URINE 4+ (NEGATIVE); KETONES,URINE NEGATIVE (NEGATIVE); LEUKOCYTE ESTERASE ,URINE NEGATIVE (NEGATIVE); NITRITES,URINE NEGATIVE (NEGATIVE); PROTEIN,URINE 2+ (NEGATIVE); UROBILINOGEN,URINE NORMAL (NORMAL)
[2023-06-28 17:02] LABS: APPEARANCE,URINE CLOUDY (CLEAR)
[2023-06-28 17:03] LABS: BACTERIA,URINE 1+ /HPF (NEGATIVE); RBC,URINE 0-2 /HPF (0-3); SQUAMOUS EPITHELIAL CELL,UR MANY /HPF (NEGATIVE)
[2023-06-28 17:04] LABS: COLOR,URINE DARK YELLOW (YELLOW)
[2023-06-28] MEDS: ZYVOX 600MG IV 600 MG/300 ML BAG IV SCH (18:29)
[2023-06-28] MEDS: MIRAPEX TAB 0.25 MG PO SCH (21:33)
[2023-06-28] MEDS: ELAVIL PO SCH (21:34)
[2023-06-28] MEDS: INSULIN GLARGINE U SUBCUT SCH (21:35)
[2023-06-29] MEDS: SYNTHROID 100 mcg TAB PO SCH (05:47)
[2023-06-29 05:51] LABS: BASOPHILS # (AUTO) 0.1 X10^3/uL (0.0-0.1); BASOPHILS % (AUTO) 0.9 % (0.2-1.0); EOSINOPHILS # (AUTO) 0.2 x10^3/uL (0.0-0.2); EOSINOPHILS % (AUTO) 2.8 % (0.9-2.9); HEMATOCRIT 26.3 % (36.0-47.0); HEMOGLOBIN 8.4 g/dL (12.0-16.0); LYMPHOCYTES # (AUTO) 0.6 X10^3/uL (1.3-2.9); LYMPHOCYTES % (AUTO) 8.1 % (21.0-51.0); MEAN CORPUSCULAR HEMOGLOBIN 24.5 pg (27.0-34.0); MEAN CORPUSCULAR HGB CONC 31.9 g/dL (33.0-35.0); MEAN CORPUSCULAR VOLUME 76.9 fL (80.0-100.0); MEAN PLATELET VOLUME 9.5 fL (7.4-11.0); MONOCYTES # (AUTO) 0.4 x10^3/uL (0.3-0.8); MONOCYTES % (AUTO) 5.7 % (0.0-13.0); NEUTROPHILS # (AUTO) 6.4 x10^3/uL (2.2-4.8); NEUTROPHILS % (AUTO) 82.5 % (42.0-75.0); PLATELET COUNT 253 X10^3/uL (150.0-450.0); RED BLOOD COUNT 3.42 X10^6/uL (3.5-5.4); RED CELL DISTRIBUTION WIDTH 15.6 % (11.6-16.5); WHITE BLOOD COUNT 7.7 X10^3/uL (3.6-10.0)
[2023-06-29 05:56] LABS: ALBUMIN 2.3 g/dL (3.4-5.0); CALCIUM 7.9 mg/dL (8.5-10.1); CARBON DIOXIDE 20.7 mmol/L (21-32); COR CA(FOR HYPOALB) 9.3 mg/dL (8.5-10.1); CREATININE 2.12 mg/dL (0.55-1.02); MAGNESIUM 1.8 mg/dL (2.0-2.9); POTASSIUM 4.6 mmol/L (3.5-5.1); TOTAL PROTEIN 6.8 g/dL (6.4-8.2)
--- NOTE | 2023-06-29 05:57 | RAD ---
EXAM: FOOT, RIGHT three-view HISTORY: pain, swelling,unknown injury, cellulitis; COMPARISON: 05/06/2022 FINDINGS: No acute fracture or dislocation. Mild edema in the dorsal foot. The talus and calcaneus appear inta ct. IMPRESSION: No acute fracture or dislocation. THIS IS AN ELECTRONICALLY VERIFIED FINAL REPORT 06/29/2023 5:47 AM - Electronically signed by Alejandro Porter MD
[2023-06-29] MEDS ORDERED: CONSULT PHARMACY - POTASSIUM & MAGNESIUM XX SCH (07:00)
[2023-06-29] MEDS ORDERED: NS 1,000 ML IV 1,000 ML IV SCH (09:00)
[2023-06-29] MEDS ORDERED: K-DUR TAB 20 MEQ PO SCH (09:00)
[2023-06-29] MEDS: LYRICA CAP 50 mg PO SCH (10:02)
[2023-06-29] MEDS: MAG-OX TAB PO SCH (10:02)
[2023-06-29] MEDS: LASIX IVP ONE (10:02)
[2023-06-29] MEDS: K-DUR TAB 20 MEQ PO SCH (10:03)
[2023-06-29] MEDS: PERCOCET TAB 5/325 MG PO PRN (10:27)
--- NOTE | 2023-06-29 12:00 | MRI ---
EXAM: MRI right hindfoot and ankle without IV contrast HISTORY: Cellulitis - COMPARISON: Foot x-ray 06/28/2023 TECHNIQUE: MRI of the right hindfoot and ankle without IV contrast is performed using standard sequences in mult iple planes. FINDINGS: There is subcutaneous edema in the posterior aspect of the ankle. Achilles tendon measures 7.0 mm in AP dimension. This is borderline thickened. There is no no abnormal intrinsic signal, though. The re is abnormal edema anterior to proximal Achilles tendon. Mild tendinopathy or peritendinopathy is not excluded. There is greater edema in the lateral aspects of the ankle and dorsum of the hindfoot. No evidence o f a focal fluid collection is seen to suggest an abscess. Edema could be bland edema or cellulitis. No abnormal bone edema is seen to suggest osteomyelitis. Mild fluid is seen adjacent to the posterior tibial tendon which is within normal limits. No evidenc e of tear of the flexor or extensor tendons is seen in the ankle. No suggestion of a ligament tear i s seen. The coronal images are limited due to motion, though. There is no evidence of sinus tarsi s yndrome. There is mild increased joint fluid in the midfoot. IMPRESSION: Nonspecific edema is seen in the subcutaneous soft tissues of the ankle and foot. This could be blan d edema or cellulitis. There is no evidence of abscess or osteomyelitis. Mild edema adjacent to the anterior aspect of the proximal Achilles tendon could possibly be mild ten dinopathy or peritendinopathy changes. It could be associated with the other edema, though. THIS IS AN ELECTRONICALLY VERIFIED FINAL REPORT 06/29/2023 11:56 AM - Electronically signed by Garcia Gtz MD
[2023-06-29] MEDS ORDERED: CYMBALTA PO SCH (21:00)
[2023-06-30 05:45] LABS: BASOPHILS # (AUTO) 0.1 X10^3/uL (0.0-0.1); BASOPHILS % (AUTO) 1.2 % (0.2-1.0); EOSINOPHILS # (AUTO) 0.3 x10^3/uL (0.0-0.2); EOSINOPHILS % (AUTO) 5.3 % (0.9-2.9); HEMATOCRIT 27.1 % (36.0-47.0); HEMOGLOBIN 8.6 g/dL (12.0-16.0); LYMPHOCYTES # (AUTO) 0.8 X10^3/uL (1.3-2.9); LYMPHOCYTES % (AUTO) 12.9 % (21.0-51.0); MEAN CORPUSCULAR HEMOGLOBIN 24.3 pg (27.0-34.0); MEAN CORPUSCULAR HGB CONC 31.9 g/dL (33.0-35.0); MEAN CORPUSCULAR VOLUME 76.4 fL (80.0-100.0); MEAN PLATELET VOLUME 9.3 fL (7.4-11.0); MONOCYTES # (AUTO) 0.6 x10^3/uL (0.3-0.8); MONOCYTES % (AUTO) 9.3 % (0.0-13.0); NEUTROPHILS # (AUTO) 4.6 x10^3/uL (2.2-4.8); NEUTROPHILS % (AUTO) 71.3 % (42.0-75.0); PLATELET COUNT 291 X10^3/uL (150.0-450.0); RED BLOOD COUNT 3.55 X10^6/uL (3.5-5.4); WHITE BLOOD COUNT 6.4 X10^3/uL (3.6-10.0)
[2023-06-30 05:53] LABS: ALBUMIN 2.5 g/dL (3.4-5.0); CALCIUM 8.5 mg/dL (8.5-10.1); CARBON DIOXIDE 23.2 mmol/L (21-32); COR CA(FOR HYPOALB) 9.7 mg/dL (8.5-10.1); CREATININE 1.72 mg/dL (0.55-1.02); POTASSIUM 4.2 mmol/L (3.5-5.1); TOTAL PROTEIN 7.4 g/dL (6.4-8.2)
[2023-06-30] MEDS: SOLU-Medrol 40 MG VIAL IVP SCH (10:17)
[2023-06-30] MEDS: NovoLIN R (or HumuLIN R) SC PRN (13:01)
--- NOTE | 2023-06-30 17:27 | PCM.PROG ---
Progress Note Progress Note for Day of Date of Exam: 06/30/23 Subjective Subjective: Patient is a 58-year-old white female who was a direct admit from Dr. Lozano's office on 06/28/23 for treatment of gastroenteritis, hypotension, nausea/vomiting/diarrhea, HALEY, right lower extremity cellulitis, gout attack. Upon admission, we obtained a chest xray- which was clear and a right foot xray, which was negative. Admission labs: wbc 11.3, hgb 9.8, bun 31/creatinine 2.53, uric acid 6.1, magnesium 1.7, CRP 126.6, sed rate 130. She was started on IV hydration, IV abx, strict I&Os. Urine/blood cultures obtained. Yesterday, her blood cultures came back positive and repeat cultures were obtained- pending at this time. Urine cultures showed <50,000 colony count. MRI of right foot yesterday showed "Nonspecific edema is seen in the subcutaneous soft tissues of the ankle and foot. This could be bland edema or cellulitis. There is no evidence of abscess or osteomyelitis. Mild edema adjacent to the anterior aspect of the proximal Achilles tendon could possibly be mild tendi nopathy or peritendinopathy changes. It could be associated with the other edema, though." Stool study results negative. AM labs: wbc 6.4, hgb 8.6, bun 25/creatinine 1.72, magnesium 1.8, sed rate 130, CRP 104.10 . AM Vitals: 129/67-92-18-97.8-92%. Past Medical Family Social History Allergies: Allergies morphine Allergy (Verified 09/27/22 19:05) Penicillins Allergy (Verified 09/27/22 19:05) ciprofloxacin [From Cipro] Adverse Reaction (Verified 09/27/22 19:05) codeine Adverse Reaction (Verified 09/27/22 19:05) ropinirole Adverse Reaction (Verified 09/27/22 19:05) Vital Signs and I&O's Vital Signs: Vital Signs Temperature 97.8 F Temperature 97.8 F Pulse Rate [Right Brachial] 92 Pulse Rate [Right Brachial] 85 Respiratory Rate 19 Respiratory Rate 18 Respiratory Rate 20 Blood Pressure [Left Arm] 129/67 Blood Pressure [Left Arm] 116/65 O2 Sat by Pulse Oximetry 92 O2 Sat by Pulse Oximetry 96 Intake and Output: Intake & Output 06/27/23 06/28/23 06/29/23 06/30/23 11:59 11:59 11:59 11:59 Intake Total 2811 / 2811 3363 / 3363 Output Total 200 / 200 Balance 2611 / 2611 3363 / 3363 Physical Exam Oriented: Normal Eyes: Normal Nose: Normal Throat: Dry Cardiovascular: Tachycardia and Edema Auscultation: Bowel Sounds: Increased Tenderness: Normal Skin: Decreased Turgur Musculoskeletal: Leg, Foot and Back:Lumbar Psychiatric: Anxiety Mood Description: Anxious Speech Pattern: Clear and Appropriate Laboratory and Diagnostics 06/30/23 04:59 06/30/23 04:59 Labs: 06/29/23 12:00 Stool Stool Culture - Preliminary 06/29/23 12:00 Stool - Final 06/28/23 12:10 Blood Blood Culture Gram Stain - Final 06/28/23 12:10 Blood Blood Culture - Preliminary 06/28/23 11:56 Blood Blood Culture Gram Stain - Final 06/28/23 11:56 Blood Blood Culture - Preliminary 06/28/23 15:25 Urine,Clean Catch Urine Culture - Final Laboratory WBC 6.4 X10^3/uL (3.6-10.0) 06/30/23 04:59 RBC 3.55 X10^6/uL (3.5-5.4) 06/30/23 04:59 Hgb 8.6 g/dL (12.0-16.0) L 06/30/23 04:59 Hct 27.1 % (36.0-47.0) L 06/30/23 04:59 MCV 76.4 fL (80.0-100.0) L 06/30/23 04:59 MCH 24.3 pg (27.0-34.0) L 06/30/23 04:59 MCHC 31.9 g/dL (33.0-35.0) L 06/30/23 04:59 RDW 16.0 % (11.6-16.5) 06/30/23 04:59 Plt Count 291 X10^3/uL (150.0-450.0) 06/30/23 04:59 MPV 9.3 fL (7.4-11.0) 06/30/23 04:59 Neut % (Auto) 71.3 % (42.0-75.0) 06/30/23 04:59 Lymph % (Auto) 12.9 % (21.0-51.0) L 06/30/23 04:59 [place] % (Auto) 9.3 % (0.0-13.0) 06/30/23 04:59 Eos % (Auto) 5.3 % (0.9-2.9) H 06/30/23 04:59 Baso % (Auto) 1.2 % (0.2-1.0) H 06/30/23 04:59 Neut # (Auto) 4.6 x10^3/uL (2.2-4.8) 06/30/23 04:59 Lymph # (Auto) 0.8 X10^3/uL (1.3-2.9) L 06/30/23 04:59 [place] # (Auto) 0.6 x10^3/uL (0.3-0.8) 06/30/23 04:59 Eos # (Auto) 0.3 x10^3/uL (0.0-0.2) H 06/30/23 04:59 Baso # (Auto) 0.1 X10^3/uL (0.0-0.1) 06/30/23 04:59 Absolute Nucleated RBC 0.0 /100WBC 06/30/23 04:59 ESR 126 MM/HOUR (0-20) H 06/30/23 04:59 Sodium 135 mmol/L (136-145) L 06/30/23 04:59 Corrected Sodium 137 mmol/L (136-145) 06/30/23 04:59 Potassium 4.2 mmol/L (3.5-5.1) 06/30/23 04:59 Chloride 101 mmol/L (98-107) 06/30/23 04:59 Carbon Dioxide 23.2 mmol/L (21-32) 06/30/23 04:59 BUN 25 mg/dL (7-18) H 06/30/23 04:59 Creatinine 1.72 mg/dL (0.55-1.02) H 06/30/23 04:59 Est GFR (MDRD) Af Amer 39 (>60) L 06/30/23 04:59 Est GFR (MDRD) Non-Af 32 (>60) L 06/30/23 04:59 Glucose 181 mg/dL (65-99) H 06/30/23 04:59 POC Glucose (mg/dL) 155 mg/dL (65-99) H 06/30/23 05:16 Lactic Acid 1.5 mmol/L (0.4-2.0) 06/28/23 11:56 Uric Acid 6.1 mg/dL (2.6-6.0) H 06/28/23 11:56 Calcium 8.5 mg/dL (8.5-10.1) 06/30/23 04:59 Corrected Calcium 9.7 mg/dL (8.5-10.1) 06/30/23 04:59 Magnesium 1.8 mg/dL (2.0-2.9) L 06/29/23 05:14 Total Bilirubin 0.20 mg/dL (0.2-1.0) 06/30/23 04:59 AST 22 Units/L (15-37) 06/30/23 04:59 ALT 22 Units/L (12-78) 06/30/23 04:59 Alkaline Phosphatase 64 Units/L (46-116) 06/30/23 04:59 C-Reactive Protein 104.10 mg/L (0-3.0) H 06/30/23 04:59 Total Protein 7.4 g/dL (6.4-8.2) 06/30/23 04:59 Albumin 2.5 g/dL (3.4-5.0) L 06/30/23 04:59 Globulin 4.9 g/dL (2.5-4.5) H 06/30/23 04:59 Albumin/Globulin Ratio 0.5 Ratio (1.1-2.1) L 06/30/23 04:59 Specimen Type Clean catch urine 06/28/23 15:25 Urine Color Dark yellow (YELLOW) 06/28/23 15:25 Urine Appearance Cloudy (CLEAR) 06/28/23 15:25 Urine pH 5.0 (5.0 - 8.0) 06/28/23 15:25 Ur Specific [place] 1.020 (1.000-1.030) 06/28/23 15:25 Urine Protein 2+ (NEGATIVE) 06/28/23 15:25 Urine Glucose (UA) 4+ (NEGATIVE) 06/28/23 15:25 Urine Ketones Negative (NEGATIVE) 06/28/23 15:25 Urine Blood 1+ (NEGATIVE) 06/28/23 15:25 Urine Nitrite Negative (NEGATIVE) 06/28/23 15:25 Urine Bilirubin Negative (NEGATIVE) 06/28/23 15:25 Urine Urobilinogen Normal (NORMAL) 06/28/23 15:25 Ur Leukocyte Esterase Negative (NEGATIVE) 06/28/23 15:25 Urine RBC 0-2 /HPF (0-3) 06/28/23 15:25 Urine WBC 0-2 /HPF (0-5) 06/28/23 15:25 Ur Squamous Epith Cells Many /HPF (NEGATIVE) 06/28/23 15:25 Urine Bacteria 1+ /HPF (NEGATIVE) 06/28/23 15:25 Urine Mucus Few /HPF (NEGATIVE) 06/28/23 15:25 Ur Culture Indicated? Yes/culture set up 06/28/23 15:25 Stl Occult Blood (IFOB) Negative (NEGATIVE) 06/29/23 12:00 Stl C. diff Tox B Gene Negative (NEGATIVE) 06/29/23 12:00 Stl C. diff [id number] Presumptive negative (NEGATIVE) 06/29/23 12:00 Stool H. pylori Ag Negative (NEGATIVE) 06/29/23 12:00 Plan (1) Gastroenteritis: Status: Acute Plan: Continue IV hydration, IV abx, strict I&O's. start solumedrol 20mg IV q 8 hours x2 doses (2) Hypotension: Status: Acute (3) Diabetes mellitus: Status: Acute Qualifiers: Diabetes mellitus type: type 2 (4) Nausea, vomiting and diarrhea: Status: Acute (5) HALEY (acute kidney injury): Status: Acute (6) Cellulitis: Status: Acute (7) Gout attack: Status: Acute
--- NOTE | 2023-06-30 17:27 | PCM.PROG ---
Progress Note Progress Note for Day of Date of Exam: 06/29/23 Subjective Subjective: Patient is a 58-year-old white female who was a direct admit from Dr. Lozano's office yesterday for treatment of gastroenteritis, hypotension, nausea/vomiting/diarrhea, HALEY, right lower extremity cellulitis, gout attack. Upon admission, we obtained a chest xray- which was clear and a right foot xray, which was negative. Admission labs: wbc 11.3, hgb 9.8, bun 31/creatinine 2.53, uric acid 6.1, magnesium 1.7, crp 126.6, sed rate 130. She was started on IV hydration, IV abx, strict I&Os. Urine/blood cultures obtained. Blood culture preliminary back this morning and positive. AM labs: wbc 7.7, hgb 8.4, bun 29/creatinine 2.12, magnesium 1.8. AM Vitals: 103/54-99-20-98.3-93%. We will plan to obtain an MRI of right foot, obtain stool cultures, repeat blood cultures. Past Medical Family Social History Allergies: Allergies morphine Allergy (Verified 09/27/22 19:05) Penicillins Allergy (Verified 09/27/22 19:05) ciprofloxacin [From Cipro] Adverse Reaction (Verified 09/27/22 19:05) codeine Adverse Reaction (Verified 09/27/22 19:05) ropinirole Adverse Reaction (Verified 09/27/22 19:05) Vital Signs and I&O's Vital Signs: Vital Signs Temperature 97.8 F Temperature 97.8 F Pulse Rate [Right Brachial] 92 Pulse Rate [Right Brachial] 85 Respiratory Rate 19 Respiratory Rate 18 Respiratory Rate 20 Blood Pressure [Left Arm] 129/67 Blood Pressure [Left Arm] 116/65 O2 Sat by Pulse Oximetry 92 O2 Sat by Pulse Oximetry 96 Intake and Output: Intake & Output 06/27/23 06/28/23 06/29/23 06/30/23 11:59 11:59 11:59 11:59 Intake Total 2811 / 2811 3363 / 3363 Output Total 200 / 200 Balance 2611 / 2611 3363 / 3363 Physical Exam Oriented: Normal Eyes: Normal Nose: Normal Throat: Dry Cardiovascular: Tachycardia and Edema Auscultation: Bowel Sounds: Increased Tenderness: Normal Skin: Decreased Turgur and Other (MILD DIFFUSE PALLOR ) Musculoskeletal: Leg, Foot and Back:Lumbar Psychiatric: Anxiety Mood Description: Anxious Speech Pattern: Clear and Appropriate Laboratory and Diagnostics 06/30/23 04:59 06/30/23 04:59 Labs: 06/29/23 12:00 Stool Stool Culture - Preliminary 06/29/23 12:00 Stool - Final 06/28/23 12:10 Blood Blood Culture Gram Stain - Final 06/28/23 12:10 Blood Blood Culture - Preliminary 06/28/23 11:56 Blood Blood Culture Gram Stain - Final 06/28/23 11:56 Blood Blood Culture - Preliminary 06/28/23 15:25 Urine,Clean Catch Urine Culture - Final Laboratory WBC 6.4 X10^3/uL (3.6-10.0) 06/30/23 04:59 RBC 3.55 X10^6/uL (3.5-5.4) 06/30/23 04:59 Hgb 8.6 g/dL (12.0-16.0) L 06/30/23 04:59 Hct 27.1 % (36.0-47.0) L 06/30/23 04:59 MCV 76.4 fL (80.0-100.0) L 06/30/23 04:59 MCH 24.3 pg (27.0-34.0) L 06/30/23 04:59 MCHC 31.9 g/dL (33.0-35.0) L 06/30/23 04:59 RDW 16.0 % (11.6-16.5) 06/30/23 04:59 Plt Count 291 X10^3/uL (150.0-450.0) 06/30/23 04:59 MPV 9.3 fL (7.4-11.0) 06/30/23 04:59 Neut % (Auto) 71.3 % (42.0-75.0) 06/30/23 04:59 Lymph % (Auto) 12.9 % (21.0-51.0) L 06/30/23 04:59 [place] % (Auto) 9.3 % (0.0-13.0) 06/30/23 04:59 Eos % (Auto) 5.3 % (0.9-2.9) H 06/30/23 04:59 Baso % (Auto) 1.2 % (0.2-1.0) H 06/30/23 04:59 Neut # (Auto) 4.6 x10^3/uL (2.2-4.8) 06/30/23 04:59 Lymph # (Auto) 0.8 X10^3/uL (1.3-2.9) L 06/30/23 04:59 [place] # (Auto) 0.6 x10^3/uL (0.3-0.8) 06/30/23 04:59 Eos # (Auto) 0.3 x10^3/uL (0.0-0.2) H 06/30/23 04:59 Baso # (Auto) 0.1 X10^3/uL (0.0-0.1) 06/30/23 04:59 Absolute Nucleated RBC 0.0 /100WBC 06/30/23 04:59 ESR 126 MM/HOUR (0-20) H 06/30/23 04:59 Sodium 135 mmol/L (136-145) L 06/30/23 04:59 Corrected Sodium 137 mmol/L (136-145) 06/30/23 04:59 Potassium 4.2 mmol/L (3.5-5.1) 06/30/23 04:59 Chloride 101 mmol/L (98-107) 06/30/23 04:59 Carbon Dioxide 23.2 mmol/L (21-32) 06/30/23 04:59 BUN 25 mg/dL (7-18) H 06/30/23 04:59 Creatinine 1.72 mg/dL (0.55-1.02) H 06/30/23 04:59 Est GFR (MDRD) Af Amer 39 (>60) L 06/30/23 04:59 Est GFR (MDRD) Non-Af 32 (>60) L 06/30/23 04:59 Glucose 181 mg/dL (65-99) H 06/30/23 04:59 POC Glucose (mg/dL) 155 mg/dL (65-99) H 06/30/23 05:16 Lactic Acid 1.5 mmol/L (0.4-2.0) 06/28/23 11:56 Uric Acid 6.1 mg/dL (2.6-6.0) H 06/28/23 11:56 Calcium 8.5 mg/dL (8.5-10.1) 06/30/23 04:59 Corrected Calcium 9.7 mg/dL (8.5-10.1) 06/30/23 04:59 Magnesium 1.8 mg/dL (2.0-2.9) L 06/29/23 05:14 Total Bilirubin 0.20 mg/dL (0.2-1.0) 06/30/23 04:59 AST 22 Units/L (15-37) 06/30/23 04:59 ALT 22 Units/L (12-78) 06/30/23 04:59 Alkaline Phosphatase 64 Units/L (46-116) 06/30/23 04:59 C-Reactive Protein 104.10 mg/L (0-3.0) H 06/30/23 04:59 Total Protein 7.4 g/dL (6.4-8.2) 06/30/23 04:59 Albumin 2.5 g/dL (3.4-5.0) L 06/30/23 04:59 Globulin 4.9 g/dL (2.5-4.5) H 06/30/23 04:59 Albumin/Globulin Ratio 0.5 Ratio (1.1-2.1) L 06/30/23 04:59 Specimen Type Clean catch urine 06/28/23 15:25 Urine Color Dark yellow (YELLOW) 06/28/23 15:25 Urine Appearance Cloudy (CLEAR) 06/28/23 15:25 Urine pH 5.0 (5.0 - 8.0) 06/28/23 15:25 Ur Specific [place] 1.020 (1.000-1.030) 06/28/23 15:25 Urine Protein 2+ (NEGATIVE) 06/28/23 15:25 Urine Glucose (UA) 4+ (NEGATIVE) 06/28/23 15:25 Urine Ketones Negative (NEGATIVE) 06/28/23 15:25 Urine Blood 1+ (NEGATIVE) 06/28/23 15:25 Urine Nitrite Negative (NEGATIVE) 06/28/23 15:25 Urine Bilirubin Negative (NEGATIVE) 06/28/23 15:25 Urine Urobilinogen Normal (NORMAL) 06/28/23 15:25 Ur Leukocyte Esterase Negative (NEGATIVE) 06/28/23 15:25 Urine RBC 0-2 /HPF (0-3) 06/28/23 15:25 Urine WBC 0-2 /HPF (0-5) 06/28/23 15:25 Ur Squamous Epith Cells Many /HPF (NEGATIVE) 06/28/23 15:25 Urine Bacteria 1+ /HPF (NEGATIVE) 06/28/23 15:25 Urine Mucus Few /HPF (NEGATIVE) 06/28/23 15:25 Ur Culture Indicated? Yes/culture set up 06/28/23 15:25 Stl Occult Blood (IFOB) Negative (NEGATIVE) 06/29/23 12:00 Stl C. diff Tox B Gene Negative (NEGATIVE) 06/29/23 12:00 Stl C. diff [id number] Presumptive negative (NEGATIVE) 06/29/23 12:00 Stool H. pylori Ag Negative (NEGATIVE) 06/29/23 12:00 Plan (1) Gastroenteritis: Status: Acute Plan: Continue IV hydration, IV abx, strict I&O's. Start lasix x1 dose, obtain stool cultures, mri right foot, repeat blood cultures (2) Hypotension: Status: Acute (3) Diabetes mellitus: Status: Acute Qualifiers: Diabetes mellitus type: type 2 (4) Nausea, vomiting and diarrhea: Status: Acute (5) HALEY (acute kidney injury): Status: Acute (6) Cellulitis: Status: Acute (7) Gout attack: Status: Acute
[2023-07-01 05:33] LABS: BASOPHILS # (AUTO) 0.1 X10^3/uL (0.0-0.1); BASOPHILS % (AUTO) 0.9 % (0.2-1.0); EOSINOPHILS # (AUTO) 0.1 x10^3/uL (0.0-0.2); HEMATOCRIT 31.2 % (36.0-47.0); HEMOGLOBIN 9.9 g/dL (12.0-16.0); LYMPHOCYTES % (AUTO) 10.9 % (21.0-51.0); MEAN CORPUSCULAR HEMOGLOBIN 24.3 pg (27.0-34.0); MEAN CORPUSCULAR HGB CONC 31.8 g/dL (33.0-35.0); MEAN CORPUSCULAR VOLUME 76.6 fL (80.0-100.0); MEAN PLATELET VOLUME 9.5 fL (7.4-11.0); MONOCYTES # (AUTO) 0.7 x10^3/uL (0.3-0.8); MONOCYTES % (AUTO) 7.7 % (0.0-13.0); NEUTROPHILS # (AUTO) 7.4 x10^3/uL (2.2-4.8); NEUTROPHILS % (AUTO) 79.5 % (42.0-75.0); PLATELET COUNT 372 X10^3/uL (150.0-450.0); RED BLOOD COUNT 4.08 X10^6/uL (3.5-5.4); RED CELL DISTRIBUTION WIDTH 15.9 % (11.6-16.5); WHITE BLOOD COUNT 9.3 X10^3/uL (3.6-10.0)
[2023-07-01 05:48] LABS: ALBUMIN 2.8 g/dL (3.4-5.0); CALCIUM 9.3 mg/dL (8.5-10.1); COR CA(FOR HYPOALB) 10.3 mg/dL (8.5-10.1); CREATININE 1.6 mg/dL (0.55-1.02); MAGNESIUM 2.3 mg/dL (2.0-2.9); POTASSIUM 4.6 mmol/L (3.5-5.1); TOTAL PROTEIN 8.2 g/dL (6.4-8.2)
--- NOTE | 2023-07-01 13:19 | RAD ---
EXAM:CHEST, 1 VIEWHISTORY:PICC LINE PLACEMENT;COMPARISON:No relevant prior studies were available for comparison at the time of interpretation.TECHNIQUE:CHEST, 1 VIEWFINDINGS:Chest:Lines and tubes: Left upper extremity PICC terminates in the lower SVCMediastinum: Cardiac and mediastinal shadow is within normal limits for size and contour.Pulmonary vessels: No pulmonary vascular congestion.Lung pdailla: No suspicious airspace opacity.Pleura: No effusion. No pneumothorax.Bones and soft tissues: No acute osseous or soft tissue abnormality.IMPRESSION:1. No acute cardiopulmonary abnormality2. PICC is in satisfactory positionTHIS IS AN ELECTRONICALLY VERIFIED FINAL REPORT07/01/2023 1:16 PM - Electronically signed by Reg Sánchez MD
--- NOTE | 2023-07-01 13:30 | DR.UPDATE ---
H&P Update Prescription drug monitoring program results: PDMP was not reviewed H&P Reviewed: Yes Any changes to H&P?: No Patient was examined?: Yes Vital Signs: Temp Pulse Resp BP BP Pulse Ox O2 Del Method 07/01/23 07:00 Room Air 07/01/23 08:00 97.7 F 86 18 137/67 99 Room Air 07/01/23 05:08 20 07/01/23 04:00 98.3 F 77 21 122/62 95 Room Air 07/01/23 04:08 20 07/01/23 00:00 97.9 F 78 20 124/72 95 Room Air 06/30/23 19:53 97.9 F 103 H 19 158/69 95 Room Air 06/30/23 19:00 Room Air 06/30/23 16:00 98.3 F 93 H 16 133/70 93 L Room Air 06/30/23 12:00 97.6 F 83 18 130/62 96 Room Air 06/30/23 11:17 19 06/30/23 10:17 19 06/30/23 08:00 97.8 F 92 H 18 129/67 92 L Room Air 06/30/23 08:22 Room Air 06/30/23 04:00 97.8 F 85 20 116/65 96 Room Air 06/29/23 23:54 99.5 F 96 H 20 118/63 94 L Room Air 06/29/23 23:19 19 06/29/23 20:00 98.3 F 113 H 19 136/66 100 Room Air 06/29/23 22:19 21 06/29/23 19:00 Room Air 06/29/23 11:27 22 06/29/23 12:00 98.2 F 94 H 18 120/58 93 L Room Air 06/29/23 10:27 22 06/29/23 16:00 97.1 F L 96 H 18 120/59 98 Room Air 06/29/23 07:00 Room Air 06/29/23 08:00 98.3 F 99 H 20 103/54 93 L Room Air 06/29/23 05:33 22 06/29/23 04:33 21 06/29/23 04:00 99.6 F 113 H 19 114/60 95 Room Air 06/28/23 23:51 98.4 F 100 H 21 113/62 99 Room Air 06/28/23 20:00 97.7 F 90 20 104/60 97 Room Air 06/28/23 19:00 Room Air 06/28/23 16:59 22 06/28/23 16:00 97.4 F L 93 H 18 107/57 95 Room Air 06/28/23 15:59 22 Procedures (ALL) - Central Line Placement PCM.CLCO: written consent Time out performed: Yes Patient placed pm monitor/pulse ox: Yes MD prep: mask, gown, gloves, other Centrial line prep: chlorhexidine scrub, sterile drapes applied Local anesthsia used: lidocane 1% Ultrasound used for placement: Yes (very small left basilic id'd via u/s and cannulation visualized) Central line lumen ininserted: double (5.5fr arrowpicc. 7cm exposed of 50cm untrimmed catheter) Post procedure: good blood return, all ports aspirated, flushed,capped, sterile dressing applied Post procedure xray: tip oc catheter in good position (appears svc; radiology report pending) Patient tolerated procedure: Yes Complications: none
--- NOTE | 2023-07-01 14:30 | DR.CONSULT ---
CONSULT Consultation for Day of: Date: 07/01/23 Chief Complaint Chief Complaint: positive blood cultures Allergies Allergies Allergy/AdvReac Type Severity Reaction Status Date / Time morphine Allergy Verified 09/27/22 19:05 Penicillins Allergy Verified 09/27/22 19:05 ciprofloxacin [From Cipro] AdvReac Verified 09/27/22 19:05 codeine AdvReac Verified 09/27/22 19:05 ropinirole AdvReac Verified 09/27/22 19:05 History of Present Illness History of Present Illness: 58 yo female- had sepsis/bacteremia last year- went to [place]- doesnt remember cardiac echo- no one said endocarditis- comes back in sick- 4 BC positive for staph aureus=no indwelling catheter except picc place today- gives self insulin but no sores/pains in skin- no pna/uti sx. 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- will procced with DEB as it increases senstivity $ fold over TTE Past Medical History Past Medical History: Arthritis, Diabetes, Dyslipidemia, Hypertension and Hypothyroidism Past Surgical History Surgical History: Angioplasty/Stents, Bowel Resection, Cholecystectomy and Hysterectomy Family History Family Medical History: Diabetes Mellitus, Cancer, MS, Heart Failure and Hypertension Social History Does patient currently use any type of tobacco product: No Have you used tobacco products in the last 12 months: No Type of Tobacco Use: Vape Does any household member use tobacco: No Alcohol Use: None Drug Use: None Medications Home Medications: morphine Allergy (Verified 09/27/22 19:05) Penicillins Allergy (Verified 09/27/22 19:05) ciprofloxacin [From Cipro] Adverse Reaction (Verified 09/27/22 19:05) codeine Adverse Reaction (Verified 09/27/22 19:05) ropinirole Adverse Reaction (Verified 09/27/22 19:05) CONTINUE taking the following medications Biest(6040)[E3/E2 1 tab sublingual HS 06/28/23 [History] Progesterone E4m (Loxoral) 60mg 1 cap PO HS 06/28/23 [History] biotin 10,000 mcg capsule 10,000 mcg PO DAILY 06/28/23 [History] dapagliflozin propanediol 10 mg tablet (Farxiga) 10 mg PO DAILY 06/28/23 [History] dulaglutide 1.5 mg/0.5 mL subcutaneous pen injector (Trulicity) 1.5 mg subcut QWEEK 06/28/23 [History] duloxetine 60 mg capsule,delayed release 60 mg PO HS 06/28/23 [History] hydrocodone 5 mg-acetaminophen 325 mg tablet 1 tab PO QDAY PRN 06/28/23 [History] insulin glargine U-300 conc 300 unit/mL (3 mL) subcutaneous pen (Toujeo Max U- 300 SoloStar) 10 unit subcut BID 06/28/23 [History] lisinopril 2.5 mg tablet 2.5 mg PO QDAY 06/28/23 [History] pregabalin 150 mg capsule 150 mg PO QDAY 06/28/23 [History] Physical Exam Vital Signs: Vital Signs Temperature 97.2 F Temperature 97.7 F Pulse Rate [Right Brachial] 84 Pulse Rate [Right Brachial] 86 Respiratory Rate 18 Respiratory Rate 18 Respiratory Rate 18 Blood Pressure [Right Arm] 148/78 Blood Pressure [Right Arm] 137/67 O2 Sat by Pulse Oximetry 100 O2 Sat by Pulse Oximetry 99 skin: no lesions, new picc line l arm clear lings rrr soft HSM apex no edema labs: wbc 9.3 hct 31 mcv 76 crp 72 alb 2.8 bun/cr 23/1.6 k 4.6 cxr: nad no ekg UC: negative BC: 4 positive for staph aureus Plan (1) Gastroenteritis: Status: Acute (2) Hypotension: Status: Acute (3) Diabetes mellitus: Status: Acute Qualifiers: Diabetes mellitus type: type 2 (4) Nausea, vomiting and diarrhea: Status: Acute (5) HALEY (acute kidney injury): Status: Acute (6) Cellulitis: Status: Acute (7) Gout attack: Status: Acute (8) Bacteremia: Status: Acute Plan: DEB in am
--- NOTE | 2023-07-01 17:51 | PCM.PROG ---
Progress Note Progress Note for Day of Date of Exam: 07/01/23 Subjective Subjective: Patient is a 58-year-old white female who was a direct admit from Dr. Lozano's office on 06/29/23 for treatment of gastroenteritis, hypotension, nausea/vomiting/diarrhea, HALEY, right lower extremity cellulitis, gout attack. Upon admission, we obtained a chest xray- which was clear and a right foot xray, which was negative. Admission labs: wbc 11.3, hgb 9.8, bun 31/creatinine 2.53, uric acid 6.1, magnesium 1.7, crp 126.6, sed rate 130. She was started on IV hydration, IV abx, strict I&Os. Urine/blood cultures obtained and blood cultures were positive for staph aureus. We obtained repeat blood cultures on same day and they were also positive for staph aureus. Blood cultures drawn on 06/29/23 preliminary shows no growth. We obtained an MRI of right foot that showed no evidence of abscess or osteomyelitis. Patient is planned for picc line placement today. AM labs: wbc 9.3, hgb 9.9, bun 23/creatinine 1.60, magnesium 1.8. AM Vitals: 137/67-86-18-97.7-99%. Dr Del Rosario consulted for DEB to ro endocarditis. Past Medical Family Social History Allergies: Allergies morphine Allergy (Verified 09/27/22 19:05) Penicillins Allergy (Verified 09/27/22 19:05) ciprofloxacin [From Cipro] Adverse Reaction (Verified 09/27/22 19:05) codeine Adverse Reaction (Verified 09/27/22 19:05) ropinirole Adverse Reaction (Verified 09/27/22 19:05) Vital Signs and I&O's Vital Signs: Vital Signs Temperature 97.2 F Pulse Rate [Right Brachial] 84 Respiratory Rate 18 Respiratory Rate 18 Respiratory Rate 18 Blood Pressure [Right Arm] 148/78 O2 Sat by Pulse Oximetry 100 Intake and Output: Intake & Output 06/29/23 06/30/23 07/01/23 07/02/23 11:59 11:59 11:59 11:59 Intake Total 2811 / 2811 3363 / 3363 3162 / 3162 Output Total 200 / 200 Balance 2611 / 2611 3363 / 3363 3162 / 3162 Physical Exam Oriented: Normal Eyes: Normal Nose: Normal Throat: Dry Cardiovascular: Tachycardia and Edema (trace RLE) Auscultation: Bowel Sounds: Increased Tenderness: Normal Skin: Decreased [place]urg[place] and Red (resolved redness to left foot) Musculoskeletal: Leg, Foot and Back:Lumbar Psychiatric: Anxiety Mood Description: Anxious Speech Pattern: Clear and Appropriate Laboratory and Diagnostics 07/01/23 05:05 07/01/23 05:05 Labs: 06/29/23 12:00 Stool Stool Culture - Final 06/29/23 12:00 Stool - Final 06/28/23 12:10 Blood Blood Culture Gram Stain - Final 06/28/23 12:10 Blood Blood Culture - Final Staphylococcus Aureus 06/28/23 11:56 Blood Blood Culture Gram Stain - Final 06/28/23 11:56 Blood Blood Culture - Final Staphylococcus Aureus 06/29/23 08:32 Blood Blood Culture - Preliminary 06/29/23 08:26 Blood Blood Culture - Preliminary 06/28/23 15:25 Urine,Clean Catch Urine Culture - Final Laboratory WBC 9.3 X10^3/uL (3.6-10.0) 07/01/23 05:05 RBC 4.08 X10^6/uL (3.5-5.4) 07/01/23 05:05 Hgb 9.9 g/dL (12.0-16.0) L 07/01/23 05:05 Hct 31.2 % (36.0-47.0) L 07/01/23 05:05 MCV 76.6 fL (80.0-100.0) L 07/01/23 05:05 MCH 24.3 pg (27.0-34.0) L 07/01/23 05:05 MCHC 31.8 g/dL (33.0-35.0) L 07/01/23 05:05 RDW 15.9 % (11.6-16.5) 07/01/23 05:05 Plt Count 372 X10^3/uL (150.0-450.0) 07/01/23 05:05 MPV 9.5 fL (7.4-11.0) 07/01/23 05:05 Neut % (Auto) 79.5 % (42.0-75.0) H 07/01/23 05:05 Lymph % (Auto) 10.9 % (21.0-51.0) L 07/01/23 05:05 [place] % (Auto) 7.7 % (0.0-13.0) 07/01/23 05:05 Eos % (Auto) 1.0 % (0.9-2.9) 07/01/23 05:05 Baso % (Auto) 0.9 % (0.2-1.0) 07/01/23 05:05 Neut # (Auto) 7.4 x10^3/uL (2.2-4.8) H 07/01/23 05:05 Lymph # (Auto) 1.0 X10^3/uL (1.3-2.9) L 07/01/23 05:05 [place] # (Auto) 0.7 x10^3/uL (0.3-0.8) 07/01/23 05:05 Eos # (Auto) 0.1 x10^3/uL (0.0-0.2) 07/01/23 05:05 Baso # (Auto) 0.1 X10^3/uL (0.0-0.1) 07/01/23 05:05 Absolute Nucleated RBC 0.1 /100WBC 07/01/23 05:05 ESR 130 MM/HOUR (0-20) H 07/01/23 05:05 Sodium 136 mmol/L (136-145) 07/01/23 05:05 Corrected Sodium 137 mmol/L (136-145) 07/01/23 05:05 Potassium 4.6 mmol/L (3.5-5.1) 07/01/23 05:05 Chloride 102 mmol/L (98-107) 07/01/23 05:05 Carbon Dioxide 24.0 mmol/L (21-32) 07/01/23 05:05 BUN 23 mg/dL (7-18) H 07/01/23 05:05 Creatinine 1.60 mg/dL (0.55-1.02) H 07/01/23 05:05 Est GFR (MDRD) Af Amer 43 (>60) L 07/01/23 05:05 Est GFR (MDRD) Non-Af 35 (>60) L 07/01/23 05:05 Glucose 129 mg/dL (65-99) H 07/01/23 05:05 POC Glucose (mg/dL) 234 mg/dL (65-99) H 07/01/23 11:38 Lactic Acid 1.5 mmol/L (0.4-2.0) 06/28/23 11:56 Uric Acid 5.6 mg/dL (2.6-6.0) 07/01/23 05:05 Calcium 9.3 mg/dL (8.5-10.1) 07/01/23 05:05 Corrected Calcium 10.3 mg/dL (8.5-10.1) H 07/01/23 05:05 Magnesium 2.3 mg/dL (2.0-2.9) 07/01/23 05:05 Total Bilirubin 0.20 mg/dL (0.2-1.0) 07/01/23 05:05 AST 21 Units/L (15-37) 07/01/23 05:05 ALT 22 Units/L (12-78) 07/01/23 05:05 Alkaline Phosphatase 72 Units/L (46-116) 07/01/23 05:05 C-Reactive Protein 72.20 mg/L (0-3.0) H 07/01/23 05:05 Total Protein 8.2 g/dL (6.4-8.2) 07/01/23 05:05 Albumin 2.8 g/dL (3.4-5.0) L 07/01/23 05:05 Globulin 5.4 g/dL (2.5-4.5) H 07/01/23 05:05 Albumin/Globulin Ratio 0.5 Ratio (1.1-2.1) L 07/01/23 05:05 Specimen Type Clean catch urine 06/28/23 15:25 Urine Color Dark yellow (YELLOW) 06/28/23 15:25 Urine Appearance Cloudy (CLEAR) 06/28/23 15:25 Urine pH 5.0 (5.0 - 8.0) 06/28/23 15:25 Ur Specific [place] 1.020 (1.000-1.030) 06/28/23 15:25 Urine Protein 2+ (NEGATIVE) 06/28/23 15:25 Urine Glucose (UA) 4+ (NEGATIVE) 06/28/23 15:25 Urine Ketones Negative (NEGATIVE) 06/28/23 15: Urine Blood 1+ (NEGATIVE) 06/28/23 15:25 Urine Nitrite Negative (NEGATIVE) 06/28/23 15:25 Urine Bilirubin Negative (NEGATIVE) 06/28/23 15:25 Urine Urobilinogen Normal (NORMAL) 06/28/23 15:25 Ur Leukocyte Esterase Negative (NEGATIVE) 06/28/23 15:25 Urine RBC 0-2 /HPF (0-3) 06/28/23 15:25 Urine WBC 0-2 /HPF (0-5) 06/28/23 15:25 Ur Squamous Epith Cells Many /HPF (NEGATIVE) 06/28/23 15:25 Urine Bacteria 1+ /HPF (NEGATIVE) 06/28/23 15:25 Urine Mucus Few /HPF (NEGATIVE) 06/28/23 15:25 Ur Culture Indicated? Yes/culture set up 06/28/23 15:25 Stl Occult Blood (IFOB) Negative (NEGATIVE) 06/29/23 12:00 Stl C. diff Tox B Gene Negative (NEGATIVE) 06/29/23 12:00 Stl C. diff [id number] Presumptive negative (NEGATIVE) 06/29/23 12:00 Stool H. pylori Ag Negative (NEGATIVE) 06/29/23 12:00 Plan (1) Bacteremia: Status: Acute Narrative Support Text: CONTINUE IV ZYVOX, ANESTHESIA CONSULTED FOR PICC LINE PLACEMENT REPEAT CRP AND SED RATE TODAY. REPEAT URIC ACID LEVEL CONTINUE BS CONTROL, BP CONTROL DR DEL ROSARIO CONSULTED FOR DEB EO ENDOCARDITIS (2) Gastroenteritis: Status: Acute (3) Hypotension: Status: Acute (4) Diabetes mellitus: Status: Acute Qualifiers: Diabetes mellitus type: type 2 (5) Nausea, vomiting and diarrhea: Status: Acute (6) HALEY (acute kidney injury): Status: Acute (7) Cellulitis: Status: Acute (8) Gout attack: Status: Acute
[2023-07-01] MEDS: RESTORIL CAP 15 MG PO PRN (22:42)
[2023-07-01] MEDS: ULTRAM PO PRN (22:42)
[2023-07-02] MEDS: HIBICLENS WASH EXT ONE (04:50)
[2023-07-02] MEDS ORDERED: HIBICLENS WASH ONE (04:50)
[2023-07-02 05:55] LABS: BASOPHILS # (AUTO) 0.1 X10^3/uL (0.0-0.1); BASOPHILS % (AUTO) 1.1 % (0.2-1.0); EOSINOPHILS # (AUTO) 0.5 x10^3/uL (0.0-0.2); EOSINOPHILS % (AUTO) 7.2 % (0.9-2.9); HEMATOCRIT 28.3 % (36.0-47.0); HEMOGLOBIN 9.1 g/dL (12.0-16.0); LYMPHOCYTES # (AUTO) 1.5 X10^3/uL (1.3-2.9); MEAN CORPUSCULAR HEMOGLOBIN 24.5 pg (27.0-34.0); MEAN CORPUSCULAR VOLUME 76.5 fL (80.0-100.0); MONOCYTES # (AUTO) 0.4 x10^3/uL (0.3-0.8); MONOCYTES % (AUTO) 5.7 % (0.0-13.0); NEUTROPHILS # (AUTO) 4.5 x10^3/uL (2.2-4.8); PLATELET COUNT 363 X10^3/uL (150.0-450.0); RED CELL DISTRIBUTION WIDTH 15.6 % (11.6-16.5)
[2023-07-02 06:04] LABS: ALBUMIN 2.5 g/dL (3.4-5.0); CALCIUM 8.6 mg/dL (8.5-10.1); CARBON DIOXIDE 25.7 mmol/L (21-32); COR CA(FOR HYPOALB) 9.8 mg/dL (8.5-10.1); CREATININE 1.54 mg/dL (0.55-1.02); POTASSIUM 4.6 mmol/L (3.5-5.1); TOTAL PROTEIN 7.2 g/dL (6.4-8.2)
[2023-07-02 08:01] VITALS: RESP 18
[2023-07-02] MEDS: NS 500 ML IV 500 ML IV ONE (08:20)
[2023-07-02] MEDS: DIPRIVAN VIAL 20 ML ONE (08:36)
[2023-07-02] MEDS: K-DUR TAB 20 MEQ PO SCH (10:28)
[2023-07-02] MEDS: LASIX IVP SCH (10:29)
--- NOTE | 2023-07-02 11:48 | RAD ---
EXAM:CHEST, 1 VIEWHISTORY:SOB, BACTEREMIA;COMPARISON:Prior study or studies were utilized for comparison during interpretation with the most relevant dated yesterdayTECHNIQUE:CHEST, 1 VIEWFINDINGS:Chest:Lines and tubes: Left upper extremity PICC terminates in the SVCMediastinum: Cardiac and mediastinal shadow is within normal limits for size and contour.Pulmonary vessels: No pulmonary vascular congestion.Lung padilla: No suspicious airspace opacity.Pleura: No effusion. No pneumothorax.Bones and soft tissues: No acute osseous or soft tissue abnormality.IMPRESSION:1. No acute cardiopulmonary abnormalityTHIS IS AN ELECTRONICALLY VERIFIED FINAL REPORT07/02/2023 11:45 AM - Electronically signed by Reg Sánchez MD
[2023-07-02 11:52] VITALS: BP 149/89; PULSE 81; TEMP 97.4; O2SAT 96
== END 2023-07-02 12:40 | disposition home or self-care (01) | DRG 392 ==
LOC: MED/SURG
PROVIDERS: ADMIT Internal Medicine; ATTEND Internal Medicine
DX: R79.82 Elevated C-reactive protein (CRP); K52.89 Other specified noninfective gastroenteritis and colitis; I95.89 Other hypotension; E03.8 Other specified hypothyroidism; R06.02 Shortness of breath; E83.42 Hypomagnesemia; B95.61 Methicillin susceptible Staphylococcus aureus infection as the cause of diseases classified elsewhere; I10 Essential (primary) hypertension; R00.0 Tachycardia, unspecified; E11.65 Type 2 diabetes mellitus with hyperglycemia; R70.0 Elevated erythrocyte sedimentation rate; E86.0 Dehydration; E78.5 Hyperlipidemia, unspecified; N17.8 Other acute kidney failure; L03.115 Cellulitis of right lower limb; R53.1 Weakness

== ENCOUNTER 2023-12-26 18:23 | Inpatient (IN) ==
--- NOTE | 2023-12-26 18:48 | DR.GENAD ---
HPI Time Seen Time Seen by Provider: 12/26/23 18:48 PCP Primary Care Physician: eVronica Gallardo Complaint/Symptoms Chief Complaint Doctors Comments: Patient states that on wednesday she became so weak that her appetite decreased( she has not eaten or had anything to drink since wednesday). Patient also had fever,chills,nausea.Patient was admitted for 17 days to [facility] to be treated for staph infection in her Rt lower extremity.She is having pain in the rt foot and erythematous lesions on her RLE. Patient denies: vomiting,sob,chest pain,abdominal pain,back pain. Chief Complaint:: Pt states since Wednesday she's had a low appetite, fever, chills, nausea. Pt has a hx of staph infections this year and states this has the same symptoms as what she had before. Pt also states she has some swelling in her right foot. Source History Provided: Patient and Family Member Mode of Arrival Mode of Arrival: Wheelchair Timing Onset of Chief Complaint: 12/24/23 PMH PMH Past Medical History: Yes Past Medical History: Arthritis, Diabetes, Dyslipidemia, Hypertension and Hypothyroidism Past Surgical History: Yes Surgical History: Hysterectomy Family History History of Family Medical Conditions: Yes Family Medical History: Diabetes Mellitus, Cancer, [place], Heart Failure and Hypertension Social History Alcohol Use: None Do you use any recreational Drugs:: No Lives With: Spouse Lives Where: Home Infectious screening Have you traveled outside the country in the last 6 months?: No Isolation: Standard ROS Review of Systems Constitutional: Chills, Fever, Weakness and Loss of Appetite Eyes: No Symptoms Reported ENTM: No Symptoms Reported Respiratoy: No Symptoms Reported Cardiovascular: No Symptoms Reported Gastrointestinal/Abdominal: No Symptoms Reported Genitourinary: No Symptoms Reported Neurological: No Symptoms Reported Musculoskeletal: No Symptoms Reported and Leg (RT pain) Integumentary: Change in Color (RLE) and Lesions (erythematous macular RLE) Hematologic/Lymphatic: No Symptoms Reported Endocrine: No Symptoms Reported Psychiatric: No Symptoms Reported All Other Systems: Reviewed and Negative PE Vital Signs Vitals: Vital Signs Temperature 98.1 F Pulse Rate 118 Pulse Rate 119 Pulse Rate 119 Pulse Rate 122 Pulse Rate 120 Pulse Rate 120 Pulse Rate 127 Pulse Rate 130 Respiratory Rate 20 Respiratory Rate 20 Blood Pressure 132/60 Blood Pressure 132/61 Blood Pressure 132/61 Blood Pressure 132/61 Blood Pressure 132/61 Blood Pressure 125/58 Blood Pressure 116/58 Blood Pressure 116/58 Blood Pressure 112/53 Blood Pressure 112/53 Blood Pressure 111/56 Blood Pressure 110/55 Blood Pressure 113/57 Blood Pressure 115/59 Blood Pressure 116/56 Blood Pressure 116/56 Blood Pressure 110/58 Blood Pressure 110/58 Blood Pressure 110/58 Blood Pressure 96/46 O2 Sat by Pulse Oximetry 84 O2 Sat by Pulse Oximetry 82 O2 Sat by Pulse Oximetry 81 O2 Sat by Pulse Oximetry 84 O2 Sat by Pulse Oximetry 85 O2 Sat by Pulse Oximetry 84 O2 Sat by Pulse Oximetry 90 O2 Sat by Pulse Oximetry 91 General Limitations: No Limitations General Appearance: Alert and In No Apparent Distress Head Head Exam: Normal Inspection Eyes Eye exam: Normal Appearance ENT ENT Exam: Normal Exam External Ear Exam: Normal External Inspection TM/Canal Exam: Bilateral: Normal Nose Exam: Normal Nose Exam Mouth Exam: Normal Inspection Throat Exam: Normal Inspection Neck Neck Exam: Normal Inspection Chest Chest Inspection: Normal Inspection Respiratory Respiratory Exam: Normal Lung Sounds Bilat Respiratory Exam: Bilateral: Clear to Auscultation Cardiovascular Cardiovascular Exam: Regular Rate and Normal Rhythm Abdominal Exam Abdominal Exam: Normal Inspection, Normal Bowel Sounds and Soft Extremities Extremities Exam: Tenderness (Rt foot) and Edema (mild edema Rt foot) Back Back Exam: Normal Inspection Neurologic Neurological Exam: Alert and Oriented X3 Psychiatric Psychiatric Exam: Normal Affect and Normal Mood Skin Skin Exam: Warm, Dry, Intact and Normal Color MDM Differential Diagnosis Differential Diagnosis: DDx: DVT,PE,electro disord, cellulitis RLE, Pneumonia COURSE Treatment Treatment: Patient has a d-dimer 3.22 and a creatinine 2.72. Patient has not had food or water since Wednesday and dehydration may be contributing to the creatinine.Patient was given NS 2L iv bolus and her creatinine decreased to 2.47/ Na increased to 131. The ultrasound of her RLE did not reveal a DVT. Patient was given cefepime 2 g iv to treat possible recurrent staph cellulitis in her RLE. Review of Patient's other labs revealed: cbc stable,lactic 1.7.CXR did not reveal an acute process. Discussed acse with Dr Gayle.Dr Gayle has accepted Patient to her service.Patient will be given heparin bolus iv and heparin drip. She will continue with gentle hydration with goal of improving GFR. atient has been stable in the ED. ROR Labs Reviewed 12/26/23 19:40 12/26/23 23:47 Laboratory: WBC 8.7 X10^3/uL (3.6-10.0) 12/26/23 19:40 RBC 3.91 X10^6/uL (3.5-5.4) 12/26/23 19:40 Hgb 10.7 g/dL (12.0-16.0) L 12/26/23 19:40 Hct 32.8 % (36.0-47.0) L 12/26/23 19:40 MCV 83.8 fL (80.0-100.0) 12/26/23 19:40 MCH 27.4 pg (27.0-34.0) 12/26/23 19:40 MCHC 32.7 g/dL (33.0-35.0) L 12/26/23 19:40 RDW 14.4 % (11.6-16.5) 12/26/23 19:40 Plt Count 198 X10^3/uL (150.0-450.0) 12/26/23 19:40 Plt Count Comment Adequate (ADEQUATE) 12/26/23 19:40 MPV 9.6 fL (7.4-11.0) 12/26/23 19:40 Neut % (Auto) 91.1 % (42.0-75.0) H 12/26/23 19:40 Lymph % (Auto) 3.8 % (21.0-51.0) L 12/26/23 19:40 [place] % (Auto) 4.3 % (0.0-13.0) 12/26/23 19:40 Eos % (Auto) 0.0 % (0.9-2.9) L 12/26/23 19:40 Baso % (Auto) 0.8 % (0.2-1.0) 12/26/23 19:40 Neut # (Auto) 7.9 x10^3/uL (2.2-4.8) H 12/26/23 19:40 Lymph # (Auto) 0.3 X10^3/uL (1.3-2.9) L 12/26/23 19:40 [place] # (Auto) 0.4 x10^3/uL (0.3-0.8) 12/26/23 19:40 Eos # (Auto) 0.0 x10^3/uL (0.0-0.2) 12/26/23 19:40 Baso # (Auto) 0.1 X10^3/uL (0.0-0.1) 12/26/23 19:40 Absolute Nucleated RBC 0.0 /100WBC 12/26/23 19:40 Total Counted 100 12/26/23 19:40 Neutrophils % (Manual) 89 % (39-76) H 12/26/23 19:40 Band Neutrophils % 5 % (0-10) 12/26/23 19:40 Lymphocytes % (Manual) 3 % (13-43) L 12/26/23 19:40 Monocytes % (Manual) 3 % (4-9) L 12/26/23 19:40 Plt Morphology Comment Normal (NORMAL) 12/26/23 19:40 RBC Morphology Normal (NORMAL) 12/26/23 19:40 D-Dimer 3.22 ug/ml (0.0-0.57) H 12/26/23 19:40 Sodium 131 mmol/L (136-145) L 12/26/23 23:47 Corrected Sodium 133 mmol/L (136-145) L 12/26/23 23:47 Potassium 4.0 mmol/L (3.5-5.1) 12/26/23 23:47 Chloride 98 mmol/L (98-107) 12/26/23 23:47 Carbon Dioxide 24.8 mmol/L (21-32) 12/26/23 23:47 BUN 44 mg/dL (7-18) H 12/26/23 23:47 Creatinine 2.47 mg/dL (0.55-1.02) H 12/26/23 23:47 Est GFR (MDRD) Af Amer 26 (>60) L 12/26/23 23:47 Est GFR (MDRD) Non-Af 21 (>60) L 12/26/23 23:47 Glucose 202 mg/dL (65-99) H 12/26/23 23:47 Lactic Acid 1.7 mmol/L (0.4-2.0) 12/26/23 19:50 Calcium 7.7 mg/dL (8.5-10.1) L 12/26/23 23:47 Corrected Calcium 9.3 mg/dL (8.5-10.1) 12/26/23 19:40 Total Bilirubin 0.50 mg/dL (0.2-1.0) 12/26/23 19:40 AST 124 Units/L (15-37) H 12/26/23 19:40 ALT 71 Units/L (12-78) 12/26/23 19:40 Alkaline Phosphatase 57 Units/L (46-116) 12/26/23 19:40 Total Protein 7.5 g/dL (6.4-8.2) 12/26/23 19:40 Albumin 2.8 g/dL (3.4-5.0) L 12/26/23 19:40 Globulin 4.7 g/dL (2.5-4.5) H 12/26/23 19:40 Albumin/Globulin Ratio 0.6 Ratio (1.1-2.1) L 12/26/23 19:40 SARS-CoV-2 (PCR) Negative (NEGATIVE) 12/26/23 19:00 Influenza Type A (PCR) Negative (NEGATIVE) 12/26/23 19:00 Influenza Type B (PCR) Negative (NEGATIVE) 12/26/23 19:00 RSV (PCR) Negative (NEGATIVE) 12/26/23 19:00 Opioid Opioid Risk Tool Age (Monty box if 16-45): No History of Preadolescent Sexual Abuse: No Total: 0 Total Score Risk Category: Low Risk Copyright: Haddad predicting aberrant behaviors Discharge Plan Diagnosis Discharge Problem: Elevated d-dimer, Cellulitis due to MRSA, Dehydration Discharge Plan Patient Disposition: ADMITTED INPATIENT Condition: Stable Orders to Discharge Patient Discharge Orders: Transfer (Routine); Ordered 12/27/23 Ordered By: Park Price
[2023-12-26 20:07] LABS: BASOPHILS # (AUTO) 0.1 X10^3/uL (0.0-0.1); HEMOGLOBIN 10.7 g/dL (12.0-16.0); LYMPHOCYTES # (AUTO) 0.3 X10^3/uL (1.3-2.9); MONOCYTES # (AUTO) 0.4 x10^3/uL (0.3-0.8)
[2023-12-26 20:11] LABS: BASOPHILS % (AUTO) 0.8 % (0.2-1.0); HEMATOCRIT 32.8 % (36.0-47.0); LYMPHOCYTES % (AUTO) 3.8 % (21.0-51.0); MEAN CORPUSCULAR HEMOGLOBIN 27.4 pg (27.0-34.0); MEAN CORPUSCULAR HGB CONC 32.7 g/dL (33.0-35.0); MEAN CORPUSCULAR VOLUME 83.8 fL (80.0-100.0); MEAN PLATELET VOLUME 9.6 fL (7.4-11.0); MONOCYTES % (AUTO) 4.3 % (0.0-13.0); NEUTROPHILS # (AUTO) 7.9 x10^3/uL (2.2-4.8); NEUTROPHILS % (AUTO) 91.1 % (42.0-75.0); PLATELET COUNT 198 X10^3/uL (150.0-450.0); RED BLOOD COUNT 3.91 X10^6/uL (3.5-5.4); RED CELL DISTRIBUTION WIDTH 14.4 % (11.6-16.5); WHITE BLOOD COUNT 8.7 X10^3/uL (3.6-10.0)
[2023-12-26 20:15] LABS: ALBUMIN 2.8 g/dL (3.4-5.0); CALCIUM 8.3 mg/dL (8.5-10.1); CARBON DIOXIDE 25.5 mmol/L (21-32); COR CA(FOR HYPOALB) 9.3 mg/dL (8.5-10.1); CREATININE 2.72 mg/dL (0.55-1.02); POTASSIUM 4.2 mmol/L (3.5-5.1); TOTAL PROTEIN 7.5 g/dL (6.4-8.2)
[2023-12-26 20:24] LABS: BAND NEUTROPHILS % 5 % (0-10); PLATELET MORPHOLOGY COMMENT NORMAL (NORMAL)
[2023-12-26] MEDS ORDERED: PYRIDIUM PO ONE (20:33)
[2023-12-26] MEDS: MAXIPIME VIAL 2 GRAMS 2 G in NS 100 ML IV 100 ML IV ONE (20:57)
[2023-12-26] MEDS: TYLENOL 500 MG TAB EXTRA STRENGTH PO ONE (20:58)
[2023-12-26] MEDS: NS 1,000 ML IV 1,000 ML IV ONE ×2 (20:58→22:35)
--- NOTE | 2023-12-26 22:09 | VAS ---
PROCEDURE: Right lower extremity Doppler venous ultrasound.HISTORY: RT LEG SEVERE PAIN FROM HIP TO FOOT; .TECHNIQUE: [place] scale and color Doppler evaluation was performed of the deep venous system of the right lower extremity.COMPARISON: None.TECHNICAL QUALITY: Satisfactory.FINDINGS:Normal Doppler flow with no filling defects involving deep venous system of the right lower extremity.Normal compression and augmentation of the right common femoral, superficial femoral, popliteal, and tibial veins.IMPRESSION:No evidence of deep venous thrombosis.THIS IS AN ELECTRONICALLY VERIFIED FINAL REPORT12/26/2023 10:06 PM - Electronically signed by Sebas Garcia MD
[2023-12-26 23:58] LABS: CALCIUM 7.7 mg/dL (8.5-10.1); CARBON DIOXIDE 24.8 mmol/L (21-32); CREATININE 2.47 mg/dL (0.55-1.02)
--- NOTE | 2023-12-27 00:47 | RAD ---
EXAM: CHEST, 1 VIEW HISTORY: FEVER, LK FOR INFN, CHF ; HTN, DM SX: HYST COMPARISON: 07/02/2023 FINDINGS: The trachea is midline. The cardiac silhouette is unremarkable . The lungs are clear without focal infiltrate or effusion. The bony thorax is unremarkable. IMPRESSION: No acute cardiopulmonary disease. THIS IS AN ELECTRONICALLY VERIFIED FINAL REPORT 12/27/2023 12:44 AM - Electronically signed by Domenico Valerio MD
[2023-12-27] MEDS ORDERED: NS 1,000 ML IV 1,000 ML ONE (04:03)
[2023-12-27 04:06] LABS: BASOPHILS # (AUTO) 0.1 X10^3/uL (0.0-0.1); BASOPHILS % (AUTO) 0.8 % (0.2-1.0); EOSINOPHILS % (AUTO) 0.1 % (0.9-2.9); HEMATOCRIT 28.7 % (36.0-47.0); HEMOGLOBIN 9.4 g/dL (12.0-16.0); LYMPHOCYTES # (AUTO) 0.4 X10^3/uL (1.3-2.9); LYMPHOCYTES % (AUTO) 5.5 % (21.0-51.0); MEAN CORPUSCULAR HEMOGLOBIN 27.6 pg (27.0-34.0); MEAN CORPUSCULAR HGB CONC 32.8 g/dL (33.0-35.0); MEAN CORPUSCULAR VOLUME 84.4 fL (80.0-100.0); MEAN PLATELET VOLUME 9.3 fL (7.4-11.0); MONOCYTES # (AUTO) 0.4 x10^3/uL (0.3-0.8); MONOCYTES % (AUTO) 5.7 % (0.0-13.0); NEUTROPHILS # (AUTO) 6.9 x10^3/uL (2.2-4.8); NEUTROPHILS % (AUTO) 87.9 % (42.0-75.0); PLATELET COUNT 164 X10^3/uL (150.0-450.0); RED BLOOD COUNT 3.41 X10^6/uL (3.5-5.4); RED CELL DISTRIBUTION WIDTH 14.7 % (11.6-16.5); WHITE BLOOD COUNT 7.8 X10^3/uL (3.6-10.0)
[2023-12-27 04:13] LABS: INR 1.37 (0.8-1.3)
[2023-12-27 04:17] LABS: ALBUMIN 2.4 g/dL (3.4-5.0); CALCIUM 7.7 mg/dL (8.5-10.1); CARBON DIOXIDE 20.4 mmol/L (21-32); CREATININE 2.47 mg/dL (0.55-1.02); TOTAL PROTEIN 6.6 g/dL (6.4-8.2)
[2023-12-27] MEDS: NS 1,000 ML IV 1,000 ML IV SCH (04:25)
[2023-12-27] MEDS: NORCO 5/325 MG TAB PO PRN ×2 (04:33→20:38)
[2023-12-27 04:40] VITALS: BMI 29.4
[2023-12-27] MEDS: HEPARIN SODIUM INJ 5000 UNITS IVP ONE (04:40)
[2023-12-27] MEDS: HEPARIN SODIUM IN D5W 25,000 UNITS/500 ML BAG IV PRN (04:40)
[2023-12-27] MEDS: PILOCARPINE HCL 5 MG PO SCH (05:56)
[2023-12-27] MEDS: NovoLIN R (or HumuLIN R) SUBCUT PRN (06:29)
[2023-12-27] MEDS: CONSULT PHARMACY - POTASSIUM & MAGNESIUM XX SCH (07:31)
[2023-12-27] MEDS ORDERED: ALDACTONE TAB 25 MG PO SCH (09:00)
[2023-12-27] MEDS ORDERED: VIBRAMYCIN PO SCH (09:00)
[2023-12-27] MEDS ORDERED: BIOTIN 10000 MCG PO SCH (09:00)
[2023-12-27] MEDS ORDERED: BISOPROLOL HYDROCHLOROTHIAZIDE PO SCH (09:00)
[2023-12-27] MEDS ORDERED: HYDROCHLOROTHIAZIDE 25 MG TAB PO SCH (09:00)
[2023-12-27] MEDS: MAXIPIME VIAL 2 GRAMS 2 G in NS 100 ML IV 100 ML IV SCH (09:01)
[2023-12-27] MEDS: SYNTHROID 100 mcg TAB PO SCH (09:02)
[2023-12-27] MEDS: ZESTRIL TAB 5 MG PO SCH (09:02)
[2023-12-27] MEDS: ZEBETA TAB 5 MG PO SCH (09:03)
[2023-12-27] MEDS: PROTONIX TAB 40 MG PO SCH (09:03)
[2023-12-27] MEDS: LYRICA CAP 150 mg PO SCH (09:03)
[2023-12-27] MEDS: TRICOR TAB 160 MG PO SCH (09:04)
[2023-12-27] MEDS: CYMBALTA PO SCH ×2 (09:04→20:35)
[2023-12-27] MEDS: BUSPAR PO SCH (09:04)
[2023-12-27] MEDS: NIASPAN ER TAB 500 MG PO SCH (09:05)
[2023-12-27] MEDS: ZYVOX 600MG IV 600 MG/300 ML BAG IV SCH (09:06)
[2023-12-27] MEDS: LIPITOR TAB 20 MG PO SCH ×2 (09:16→20:36)
[2023-12-27] MEDS: PATIENT'S HOME MEDICATION (Dulaglutide [Trulicity] 1.5 mg/0.5 mL Pen Injector) SUBCUT SCH (09:16)
[2023-12-27] MEDS: LOVENOX INJ 30 MG SYR SC SCH (12:24)
[2023-12-27] MEDS: MORPHINE SULFATE INJ 2 MG INJ IVP PRN ×2 (12:36→17:08)
[2023-12-27] MEDS ORDERED: PHARMACY CONSULT - LOVENOX XX SCH (13:00)
[2023-12-27] MEDS: SNACK - Diabetic Appropriate PO SCH (20:00)
[2023-12-27] MEDS: ELAVIL PO SCH (20:36)
[2023-12-27] MEDS: COLACE CAP 100 MG PO SCH (20:36)
[2023-12-27] MEDS: MIRAPEX TAB 0.25 MG PO SCH (20:38)
[2023-12-28 05:11] LABS: BASOPHILS # (AUTO) 0.1 X10^3/uL (0.0-0.1); BASOPHILS % (AUTO) 0.6 % (0.2-1.0); EOSINOPHILS # (AUTO) 0.1 x10^3/uL (0.0-0.2); EOSINOPHILS % (AUTO) 1.2 % (0.9-2.9); HEMATOCRIT 29.3 % (36.0-47.0); HEMOGLOBIN 9.5 g/dL (12.0-16.0); LYMPHOCYTES # (AUTO) 1.2 X10^3/uL (1.3-2.9); LYMPHOCYTES % (AUTO) 12.9 % (21.0-51.0); MEAN CORPUSCULAR HEMOGLOBIN 27.7 pg (27.0-34.0); MEAN CORPUSCULAR HGB CONC 32.4 g/dL (33.0-35.0); MEAN CORPUSCULAR VOLUME 85.4 fL (80.0-100.0); MONOCYTES # (AUTO) 0.6 x10^3/uL (0.3-0.8); MONOCYTES % (AUTO) 6.2 % (0.0-13.0); NEUTROPHILS # (AUTO) 7.1 x10^3/uL (2.2-4.8); NEUTROPHILS % (AUTO) 79.1 % (42.0-75.0); PLATELET COUNT 160 X10^3/uL (150.0-450.0); RED BLOOD COUNT 3.43 X10^6/uL (3.5-5.4)
[2023-12-28 05:19] LABS: ALBUMIN 2.1 g/dL (3.4-5.0); CARBON DIOXIDE 21.8 mmol/L (21-32); COR CA(FOR HYPOALB) 9.5 mg/dL (8.5-10.1); CREATININE 2.67 mg/dL (0.55-1.02); POTASSIUM 4.8 mmol/L (3.5-5.1); TOTAL PROTEIN 6.8 g/dL (6.4-8.2)
--- NOTE | 2023-12-28 09:02 | RAD ---
EXAMINATION: CHEST, 1 VIEW HISTORY: short of breath; . COMPARISON STUDY: Chest x-ray 12/27/2023 TECHNIQUE: Single portable AP view chest FINDINGS: Interstitial alveolar infiltrates scattered in both lungs. Mild cardiac silhouette enlargement with mild pulmonary vascular congestion. Bones appear intact. IMPRESSION: Bilateral pulmonary infiltrates, cardiac silhouette enlargement with pulmonary vascular congestion. THIS IS AN ELECTRONICALLY VERIFIED FINAL REPORT 12/28/2023 8:59 AM - Electronically signed by Jennifer Chairez MD
[2023-12-28 09:18] LABS: ABG BASE EXCESS -6.9 mmol/L (-2.0-2.0); ABG HCO3 18.5 mmol/L (22-26)
[2023-12-28 09:19] LABS: ABG PO2 < 37.0 mmHg (80.0-100.0)
[2023-12-28 09:20] LABS: ABG ALLEN TEST POS
[2023-12-28 10:11] LABS: BILIRUBIN,URINE NEGATIVE (NEGATIVE); BLOOD/HEMOGLOBIN,URINE 1+ (NEGATIVE); GLUCOSE, URINE 4+ (NEGATIVE); KETONES,URINE NEGATIVE (NEGATIVE); LEUKOCYTE ESTERASE ,URINE NEGATIVE (NEGATIVE); NITRITES,URINE NEGATIVE (NEGATIVE); PROTEIN,URINE 2+ (NEGATIVE); UROBILINOGEN,URINE NORMAL (NORMAL)
[2023-12-28 10:26] LABS: APPEARANCE,URINE CLEAR (CLEAR); COLOR,URINE YELLOW (YELLOW)
[2023-12-28] MEDS: SYNTHROID 100 mcg TAB PO SCH (10:28)
[2023-12-28 10:29] LABS: RBC,URINE 0-2 /HPF (0-3)
[2023-12-28 10:30] LABS: BACTERIA,URINE TRACE /HPF (NEGATIVE); SQUAMOUS EPITHELIAL CELL,UR RARE /HPF (NEGATIVE)
[2023-12-28 10:31] LABS: RENAL EPITHELIAL CELLS,URINE FEW /HPF (NEGATIVE)
--- NOTE | 2023-12-28 16:31 | DR.H&P ---
H&P History & Physical for Day of: H&P Date: 12/26/23 Chief Complaint Chief Complaint: WEAKNESS, FEVER, CHILLS, SEVERE RIGHT FOOT PAIN History of Present Illness History of Present Illness: PT IS 58 WF ER ADMISSION WITH CO EXTREME FATIGUE WITH LOSS OF APPETITE, FEVER AND CHILLS ONSET WEDNESDAY AFTERNOON. PT CO SEVERE PAIN AND REDNESS TO TOP OF RIGHT FOOT. PT HAS PMH OF SIMILAIR SYMPTOMS FROM JUNE 2023 WHEN SHE WAS DIAGNOSED WITH BACTEREMIA AND ENDOCARDITIS. PT HAS PMH OF DM, HTN, SJOGRENS, HYPOTHYROIDISM, MDD, SPINE DDD AND HYPERLIPIDEMIA. PT ADMITTED FOR TREATMENT AND EVALUATION OF ACUTE ILLNESS. Past Medical History Past Medical History: Arthritis, Diabetes, Dyslipidemia, Hypertension and Hypothyroidism Past Surgical History Surgical History: Appendectomy, Bowel Resection, Cholecystectomy and Hysterectomy Family History Family Medical History: Diabetes Mellitus and Hypertension Social History Does patient currently use any type of tobacco product: Yes Type of Tobacco Use: Vape Does any household member use tobacco: No Alcohol Use: None Drug Use: None Medications Home Medications: Home Medications Medication Instructions Recorded Confirmed Type amitriptyline 50 mg tablet 50 mg PO HS 09/27/22 12/27/23 History atorvastatin 20 mg tablet 20 mg PO QDAY 09/27/22 12/27/23 History bisoprolol 2.5 1 tab PO QDAY 09/27/22 12/27/23 History mg-hydrochlorothiazide 6.25 mg tablet buspirone 5 mg tablet 5 mg PO BID PRN 09/27/22 12/27/23 History duloxetine 30 mg capsule,delayed 30 mg PO QDAY 09/27/22 12/27/23 History release fenofibrate 160 mg tablet 160 mg PO QDAY 09/27/22 12/27/23 History levothyroxine 100 mcg tablet 100 mcg PO 0700 09/27/22 12/27/23 History niacin 500 mg tablet,extended 500 mg PO DAILY 09/27/22 12/27/23 History release 24 hr pantoprazole 40 mg tablet,delayed 40 mg PO QDAY 09/27/22 12/27/23 History release pilocarpine HCl 5 mg tablet 5 mg PO TID 09/27/22 12/27/23 History (Salagen (pilocarpine)) pramipexole 0.5 mg tablet (Mirapex) 0.5 mg PO HS 09/27/22 12/27/23 History Biest(6040)[E3/E2 1 tab sublingual HS 06/28/23 12/27/23 History Progesterone E4m (Loxoral) 60mg 1 cap PO HS 06/28/23 12/27/23 History dapagliflozin propanediol 10 mg 10 mg PO DAILY 06/28/23 12/27/23 History tablet (Farxiga) dulaglutide 1.5 mg/0.5 mL 1.5 mg subcut QWEEK 06/28/23 12/27/23 History [facility] duloxetine 60 mg capsule,delayed 60 mg PO HS 06/28/23 12/27/23 History release hydrocodone 5 mg-acetaminophen 325 1 tab PO QDAY PRN 06/28/23 12/27/23 History mg tablet insulin glargine U-300 conc 300 10 unit subcut BID 06/28/23 12/27/23 History unit/mL (3 mL) subcutaneous pen (Toujeo Max U-300 SoloStar) lisinopril 2.5 mg tablet 2.5 mg PO QDAY 06/28/23 12/27/23 History pregabalin 150 mg capsule 150 mg PO HS 06/28/23 12/27/23 History aspirin 81 mg tablet,delayed 81 mg PO QDAY 07/12/23 12/27/23 History release insulin aspart U-100 100 unit/mL See Rx Instructions .Route .COMPLEX 07/12/23 12/27/23 History subcutaneous solution (Novolog U-100 Insulin aspart) sub-q insulin device, 40 unit #30 ea 07/12/23 12/27/23 History (V-GO 40 device) Allergies Allergies Allergy/AdvReac Type Severity Reaction Status Date / Time ciprofloxacin [From Cipro] AdvReac Verified 07/12/23 10:24 codeine AdvReac Verified 07/12/23 10:24 NSAIDS (Non-Steroidal AdvReac Verified 12/26/23 21:09 Anti-Inflamma ropinirole AdvReac Verified 07/12/23 10:24 Labs 12/28/23 04:40 12/28/23 04:40 Labs: 12/26/23 19:40 Blood Blood Culture Gram Stain - Final 12/26/23 19:40 Blood Blood Culture - Preliminary 12/26/23 19:50 Blood Blood Culture Gram Stain - Final 12/26/23 19:50 Blood Blood Culture - Preliminary 12/27/23 08:46 Blood Blood Culture Gram Stain - Final 12/27/23 08:40 Blood Blood Culture Gram Stain - Final Laboratory WBC 9.0 X10^3/uL (3.6-10.0) 12/28/23 04:40 RBC 3.43 X10^6/uL (3.5-5.4) L 12/28/23 04:40 Hgb 9.5 g/dL (12.0-16.0) L 12/28/23 04:40 Hct 29.3 % (36.0-47.0) L 12/28/23 04:40 MCV 85.4 fL (80.0-100.0) 12/28/23 04:40 MCH 27.7 pg (27.0-34.0) 12/28/23 04:40 MCHC 32.4 g/dL (33.0-35.0) L 12/28/23 04:40 RDW 15.0 % (11.6-16.5) 12/28/23 04:40 Plt Count 160 X10^3/uL (150.0-450.0) 12/28/23 04:40 Plt Count Comment Adequate (ADEQUATE) 12/26/23 19:40 MPV 10.0 fL (7.4-11.0) 12/28/23 04:40 Neut % (Auto) 79.1 % (42.0-75.0) H 12/28/23 04:40 Lymph % (Auto) 12.9 % (21.0-51.0) L 12/28/23 04:40 [place] % (Auto) 6.2 % (0.0-13.0) 12/28/23 04:40 Eos % (Auto) 1.2 % (0.9-2.9) 12/28/23 04:40 Baso % (Auto) 0.6 % (0.2-1.0) 12/28/23 04:40 Neut # (Auto) 7.1 x10^3/uL (2.2-4.8) H 12/28/23 04:40 Lymph # (Auto) 1.2 X10^3/uL (1.3-2.9) L 12/28/23 04:40 [place] # (Auto) 0.6 x10^3/uL (0.3-0.8) 12/28/23 04:40 Eos # (Auto) 0.1 x10^3/uL (0.0-0.2) 12/28/23 04:40 Baso # (Auto) 0.1 X10^3/uL (0.0-0.1) 12/28/23 04:40 Absolute Nucleated RBC 0.1 /100WBC 12/28/23 04:40 Total Counted 100 12/26/23 19:40 Neutrophils % (Manual) 89 % (39-76) H 12/26/23 19:40 Band Neutrophils % 5 % (0-10) 12/26/23 19:40 Lymphocytes % (Manual) 3 % (13-43) L 12/26/23 19:40 Monocytes % (Manual) 3 % (4-9) L 12/26/23 19:40 Plt Morphology Comment Normal (NORMAL) 12/26/23 19:40 RBC Morphology Normal (NORMAL) 12/26/23 19:40 ESR 74 MM/HOUR (0-20) H 12/27/23 03:58 PT 16.6 SECONDS (11.8-14.3) 12/27/23 03:58 INR Target Range - 12/27/23 03:58 INR 1.37 (0.8-1.3) H 12/27/23 03:58 APTT 35.9 SECONDS (22.9-36.5) 12/27/23 03:58 PTT Comment - 12/27/23 03:58 D-Dimer 3.22 ug/ml (0.0-0.57) H 12/26/23 19:40 Sample Site Rb 12/28/23 09:12 ABG pH 7.320 (7.35-7.45) L 12/28/23 09:12 ABG pCO2 36.0 mmHg (35.0-45.0) 12/28/23 09:12 ABG pO2 < 37.0 mmHg (80.0-100.0) L* 12/28/23 09:12 ABG HCO3 18.5 mmol/L (22-26) L 12/28/23 09:12 ABG O2 Saturation 46.0 % (90-100) L* 12/28/23 09:12 ABG Base Excess -6.9 mmol/L (-2.0-2.0) L 12/28/23 09:12 Julian Test Pos 12/28/23 09:12 A-a Gradient 77.0 mmHg 12/28/23 09:12 FiO2 21.0 12/28/23 09:12 Blood Gas Comments Pt surinder well cdn 12/28/23 09:12 Sodium 128 mmol/L (136-145) L 12/28/23 04:40 Corrected Sodium 131 mmol/L (136-145) L 12/28/23 04:40 Potassium 4.8 mmol/L (3.5-5.1) 12/28/23 04:40 Chloride 97 mmol/L (98-107) L 12/28/23 04:40 Carbon Dioxide 21.8 mmol/L (21-32) 12/28/23 04:40 BUN 42 mg/dL (7-18) H 12/28/23 04:40 Creatinine 2.67 mg/dL (0.55-1.02) H 12/28/23 04:40 Est GFR (MDRD) Af Amer 24 (>60) L 12/28/23 04:40 Est GFR (MDRD) Non-Af 20 (>60) L 12/28/23 04:40 Glucose 209 mg/dL (65-99) H 12/28/23 04:40 POC Glucose (mg/dL) 250 mg/dL (65-99) H 12/28/23 15:43 Lactic Acid < 0.3 mmol/L (0.4-2.0) L 12/28/23 08:51 Calcium 8.0 mg/dL (8.5-10.1) L 12/28/23 04:40 Corrected Calcium 9.5 mg/dL (8.5-10.1) 12/28/23 04:40 Total Bilirubin 0.50 mg/dL (0.2-1.0) 12/28/23 04:40 AST 80 Units/L (15-37) H 12/28/23 04:40 ALT 57 Units/L (12-78) 12/28/23 04:40 Alkaline Phosphatase 61 Units/L (46-116) 12/28/23 04:40 Troponin I High Sens 25.1 ng/L (4.0-60.0) 12/28/23 08:51 C-Reactive Protein 334.10 mg/L (0-3.0) H 12/28/23 08:51 Total Protein 6.8 g/dL (6.4-8.2) 12/28/23 04:40 Albumin 2.1 g/dL (3.4-5.0) L 12/28/23 04:40 Globulin 4.7 g/dL (2.5-4.5) H 12/28/23 04:40 Albumin/Globulin Ratio 0.4 Ratio (1.1-2.1) L 12/28/23 04:40 Specimen Type Catherized urine 12/28/23 09:50 Urine Color Yellow (YELLOW) 12/28/23 09:50 Urine Appearance Clear (CLEAR) 12/28/23 09:50 Urine pH 6.0 (5.0 - 8.0) 12/28/23 09:50 Ur Specific [place] 1.025 (1.000-1.030) 12/28/23 09:50 Urine Protein 2+ (NEGATIVE) 12/28/23 09:50 Urine Glucose (UA) 4+ (NEGATIVE) 12/28/23 09:50 Urine Ketones Negative (NEGATIVE) 12/28/23 09:50 Urine Blood 1+ (NEGATIVE) 12/28/23 09:50 Urine Nitrite Negative (NEGATIVE) 12/28/23 09:50 Urine Bilirubin Negative (NEGATIVE) 12/28/23 09:50 Urine Urobilinogen Normal (NORMAL) 12/28/23 09:50 Ur Leukocyte Esterase Negative (NEGATIVE) 12/28/23 09:50 Urine RBC 0-2 /HPF (0-3) 12/28/23 09:50 Urine WBC 3-5 /HPF (0-5) 12/28/23 09:50 Ur Squamous Epith Cells Rare /HPF (NEGATIVE) 12/28/23 09:50 Ur Renal Epithelial Cell Few /HPF (NEGATIVE) 12/28/23 09:50 Amorphous Sediment 1+ /HPF (NEGATIVE) 12/28/23 09:50 Urine Bacteria Trace /HPF (NEGATIVE) 12/28/23 09:50 Urine Mucus Rare /HPF (NEGATIVE) 12/28/23 09:50 Ur Culture Indicated? Yes/culture set up 12/28/23 09:50 SARS-CoV-2 (PCR) Negative (NEGATIVE) 12/26/23 19:00 Influenza Type A (PCR) Negative (NEGATIVE) 12/26/23 19:00 Influenza Type B (PCR) Negative (NEGATIVE) 12/26/23 19:00 RSV (PCR) Negative (NEGATIVE) 12/26/23 19:00 Review of Systems Constitutional: Fever, Chills, Weakness and Malaise Eyes: No Symptoms Reported ENT: Nose Discharge Respiratory: Shortness of Breath Cardiovascular: Edema Gastrointestinal: Nausea and Other (ANOREXIA) Genitourinary: No Symptoms Reported Musculoskeletal: Back Pain, Leg Pain and Foot Pain Skin: Other (REDNESS TO TOP OF RIGHT FOOT) Neurological: Weakness Physical Exam Vital Signs: Vital Signs Temperature 97.9 F Temperature 97.7 F Pulse Rate 86 Pulse Rate 90 Pulse Rate 88 Pulse Rate 94 Pulse Rate 101 Pulse Rate 105 Pulse Rate 110 Respiratory Rate 20 Respiratory Rate 21 Respiratory Rate 27 Respiratory Rate 20 Respiratory Rate 20 Respiratory Rate 26 Respiratory Rate 25 Respiratory Rate 27 Respiratory Rate 25 Blood Pressure 103/66 Blood Pressure 87/52 Blood Pressure 94/58 Blood Pressure 105/55 Blood Pressure 100/55 Blood Pressure 106/51 Blood Pressure 105/51 O2 Sat by Pulse Oximetry 91 O2 Sat by Pulse Oximetry 87 O2 Sat by Pulse Oximetry 93 O2 Sat by Pulse Oximetry 90 O2 Sat by Pulse Oximetry 90 O2 Sat by Pulse Oximetry 91 O2 Sat by Pulse Oximetry 73 Oriented: Normal Eyes: Normal Ear: Normal Nose: Normal Throat: Dry Respiratory: RLL Diminished and LLL Diminished Cardiovascular: Tachycardia and Edema : Normal Auscultation: Bowel Sounds: Normal Palpation: Other (MILD DIFFUSE DISTENTION) Tenderness: Diffuse and Mild Skin: Decreased [place], Red (LOCALIZED TO DORSAL ASPECT RIGHT FOOT) and Tender Musculoskeletal: Back:Lumbar, Tender and Motor Deficit Psychiatric: Anxiety Mood Description: Anxious Affect: Anxious Speech Pattern: Clear and Appropriate Assessment/Plan (1) Cellulitis: Narrative Support Text: ADMIT, IC ATBX BLOOD CULTURES ON ADMISSION RO DVT WITH VENOUS DOPPLER AND HEPARIN DRIP IN ER CXR ON ADMISSION IV HYDRATION I&OS, EKG MONITORING, NEGATIVE FOR RESP PANEL RESP CONSULT Status: Acute (2) HALEY (acute kidney injury): Status: Acute (3) Diabetes mellitus: Qualifiers: Diabetes mellitus type: type 2 Status: Acute (4) Dehydration: Status: Acute
[2023-12-28] MEDS: LASIX IVP ONE ×2 (17:34→18:23)
[2023-12-28 18:25] VITALS: RESP 26
[2023-12-28] MEDS: HEPARIN SODIUM INJ 5000 UNITS IVP ONE (19:23)
[2023-12-28] MEDS: HEPARIN SODIUM IN D5W 25,000 UNITS/500 ML BAG IV PRN (19:24)
[2023-12-28 20:31] VITALS: BP 117/53; PULSE 97; TEMP 98.9; O2SAT 89
[2023-12-29] MEDS ORDERED: PATIENT'S HOME MEDICATION INJ SCH (09:17)
== END 2023-12-28 20:25 | disposition short-term general hospital (02) | DRG 603 ==
LOC: ICU 18:27 → ER 18:27 → OBSVTOIN 12-27 03:01 → ICU 12-27 03:28
PROVIDERS: ADMIT Internal Medicine; ATTEND Internal Medicine
DX: R53.1 Weakness; I10 Essential (primary) hypertension; E86.0 Dehydration; L03.115 Cellulitis of right lower limb; E11.65 Type 2 diabetes mellitus with hyperglycemia; R70.0 Elevated erythrocyte sedimentation rate; N17.8 Other acute kidney failure; M79.604 Pain in right leg; Z20.822 Contact with and (suspected) exposure to COVID-19; R79.1 Abnormal coagulation profile; B95.61 Methicillin susceptible Staphylococcus aureus infection as the cause of diseases classified elsewhere; Z86.14 Personal history of Methicillin resistant Staphylococcus aureus infection; R78.81 Bacteremia; R06.02 Shortness of breath

== ENCOUNTER 2024-02-17 16:28 | Inpatient (IN) ==
[2024-02-17] MEDS ORDERED: PHARMACY CONSULT - VANCOMYCIN XX SCH (17:48)
--- NOTE | 2024-02-17 18:04 | EKG ---
Test Reason : SEPSIS Blood Pressure : */* mmHG Vent. Rate : 107 BPM Atrial Rate : 107 BPM P-R Int : 130 ms QRS Dur : 90 ms QT Int : 316 ms P-R-T Axes : 13 14 25 degrees QTc Int : 421 ms Sinus tachycardia Otherwise normal ECG When compared with ECG of 27-SEP-2022 19:10, premature ventricular complexes are no longer present QT has shortened Confirmed by Jeff Menon MD ([id number]) on 02/18/2024 5:32:54 AM Referred By: Confirmed By: Jeff Menon MD
[2024-02-17 18:25] LABS: BASOPHILS # (AUTO) 0.1 X10^3/uL (0.0-0.1); EOSINOPHILS # (AUTO) 0.1 x10^3/uL (0.0-0.2); EOSINOPHILS % (AUTO) 0.6 % (0.9-2.9); HEMATOCRIT 30.9 % (36.0-47.0); HEMOGLOBIN 10.1 g/dL (12.0-16.0); LYMPHOCYTES # (AUTO) 0.8 X10^3/uL (1.3-2.9); LYMPHOCYTES % (AUTO) 5.5 % (21.0-51.0); MEAN CORPUSCULAR HEMOGLOBIN 26.5 pg (27.0-34.0); MEAN CORPUSCULAR HGB CONC 32.7 g/dL (33.0-35.0); MEAN CORPUSCULAR VOLUME 80.9 fL (80.0-100.0); MEAN PLATELET VOLUME 9.8 fL (7.4-11.0); MONOCYTES # (AUTO) 0.6 x10^3/uL (0.3-0.8); MONOCYTES % (AUTO) 4.1 % (0.0-13.0); NEUTROPHILS # (AUTO) 13.1 x10^3/uL (2.2-4.8); NEUTROPHILS % (AUTO) 88.8 % (42.0-75.0); PLATELET COUNT 396 X10^3/uL (150.0-450.0); RED BLOOD COUNT 3.83 X10^6/uL (3.5-5.4); RED CELL DISTRIBUTION WIDTH 15.2 % (11.6-16.5); WHITE BLOOD COUNT 14.8 X10^3/uL (3.6-10.0)
--- NOTE | 2024-02-17 18:30 | DR.H&P ---
H&P History & Physical for Day of: H&P Date: 02/17/24 Chief Complaint Chief Complaint: WEAKNESS, CHILLS AND SWEATS "HURTING ALL OVER" History of Present Illness History of Present Illness: PT IS 58 WF, DIRECT ADMIT FROM DR HERRON OFFICE WITH ABNORMAL OP LABS, BC +[facility]. PT HAS CO HURTING ALL OVER AND POOR APPETITE WITH CHILLS AND SWEATS FOR THE PAST WEEK. PT WAS RECENTLY TREATED WITH 6 WEEKS OF IV ATBX FOLLOWING SEPSIS AND BACTEREMIA, WITH TRANSFER TO [facility] FOR INFECTIOUS DISEASE MANAGEMENT. PT CO NAUSEA WITHOUT VOMITING OR DIARRHEA. PT IS A DIABETIC WITH GLUCOSE AVG 160'S. PT WAS ALSO DX WITH END OCARDITIS THIS PAST SUMMER AND HAS BEEN FOLLOWED BY DR DEL ROSARIO. PT DENIES ANY CHEST PAIN. Past Medical History Past Medical History: Arthritis, Diabetes, Dyslipidemia, Hypertension and Hypothyroidism Past Surgical History Surgical History: Appendectomy, Bowel Resection, Cholecystectomy and Hysterectom y Family History Family Medical History: Diabetes Mellitus and Hypertension Medications Home Medications: Home Medications Medication Instructions Recorded Confirmed Type amitriptyline 50 mg tablet 50 mg PO HS 09/27/22 12/27/23 History atorvastatin 20 mg tablet 20 mg PO QDAY 09/27/22 12/27/23 History bisoprolol 2.5 1 tab PO QDAY 09/27/22 12/27/23 History mg-hydrochlorothiazide 6.25 mg tablet buspirone 5 mg tablet 5 mg PO BID PRN 09/27/22 12/27/23 History duloxetine 30 mg capsule,delayed 30 mg PO QDAY 09/27/22 12/27/23 History release fenofibrate 160 mg tablet 160 mg PO QDAY 09/27/22 12/27/23 History levothyroxine 100 mcg tablet 100 mcg PO 0700 09/27/22 12/27/23 History niacin 500 mg tablet,extended 500 mg PO DAILY 09/27/22 12/27/23 History release 24 hr pantoprazole 40 mg tablet,delayed 40 mg PO QDAY 09/27/22 12/27/23 History release pilocarpine HCl 5 mg tablet 5 mg PO TID 09/27/22 12/27/23 History (Salagen (pilocarpine)) pramipexole 0.5 mg tablet (Mirapex) 0.5 mg PO HS 09/27/22 12/27/23 History Biest(6040)[E3/E2 1 tab sublingual HS 06/28/23 12/27/23 History Progesterone E4m (Loxoral) 60mg 1 cap PO HS 06/28/23 12/27/23 History dapagliflozin propanediol 10 mg 10 mg PO DAILY 06/28/23 12/27/23 History tablet (Farxiga) dulaglutide 1.5 mg/0.5 mL 1.5 mg subcut QWEEK 06/28/23 12/27/23 History subcutaneous pen injector (Trulicity) duloxetine 60 mg capsule,delayed 60 mg PO HS 06/28/23 12/27/23 History release hydrocodone 5 mg-acetaminophen 325 1 tab PO QDAY PRN 06/28/23 12/27/23 History mg tablet insulin glargine U-300 conc 300 10 unit subcut BID 06/28/23 12/27/23 History unit/mL (3 mL) subcutaneous pen (Toujeo Max U-300 SoloStar) lisinopril 2.5 mg tablet 2.5 mg PO QDAY 06/28/23 12/27/23 History pregabalin 150 mg capsule 150 mg PO HS 06/28/23 12/27/23 History aspirin 81 mg tablet,delayed 81 mg PO QDAY 07/12/23 12/27/23 History release insulin aspart U-100 100 unit/mL See Rx Instructions .Route .COMPLEX 07/12/23 12/27/23 History subcutaneous solution (Novolog U-100 Insulin aspart) sub-q insulin device, 40 unit #30 ea 07/12/23 12/27/23 History (V-GO 40 device) Allergies Allergies Allergy/AdvReac Type Severity Reaction Status Date / Time ciprofloxacin [From Cipro] AdvReac Verified 07/12/23 10:24 codeine AdvReac Verified 07/12/23 10:24 NSAIDS (Non-Steroidal AdvReac Verified 12/26/23 21:09 Anti-Inflamma ropinirole AdvReac Verified 07/12/23 10:24 Review of Systems Constitutional: Chills, Sweats, Weakness and Malaise Eyes: No Symptoms Reported ENT: No Symptoms Reported Respiratory: Shortness of Breath Cardiovascular: No Symptoms Reported Gastrointestinal: Nausea and Constipation Genitourinary: No Symptoms Reported Musculoskeletal: Arm Pain, Back Pain and Leg Pain Skin: Other (REDNESS TO RIGHT GREAT TOE) Neurological: No Symptoms Reported Oriented: Normal Eyes: Normal Ear: Normal Nose: Normal Throat: Normal Respiratory: RLL Diminished and LLL Diminished Cardiovascular: Tachycardia Auscultation: Bowel Sounds: Decreased Palpation: Normal Tenderness: Normal Skin: Red (RIGHT GREAT TOE ) Musculoskeletal: Back:Thoracic, Back:Lumbar and Tender Psychiatric: Anxiety Mood Description: Anxious Affect: Anxious Speech Pattern: Clear Assessment/Plan (1) Bacteremia: Status: Acute Plan: ADMIT, BLOOD AND URINE CULTURE ON ADMISSION IV HYDRATION, IV VANOCMYCIN, CONSULT PHARMACY FOR RENAL DOSING CXR AND RESP CONSULT ON ADMISSION BP CONTROL, ADMISSION LABS WITH CRP AND SED RATE, LACTIC ACID STRICT I&OS, PAIN CONTROL (2) Diabetes mellitus: Qualifiers: Diabetes mellitus type: type 2 Status: Acute (3) Myalgia and myositis: Status: Acute
[2024-02-17 18:39] LABS: ALBUMIN 3.3 g/dL (3.4-5.0); CALCIUM 9.5 mg/dL (8.5-10.1); CARBON DIOXIDE 26.3 mmol/L (21-32); COR CA(FOR HYPOALB) 10.1 mg/dL (8.5-10.1); CREATININE 2.13 mg/dL (0.55-1.02); POTASSIUM 4.6 mmol/L (3.5-5.1); TOTAL PROTEIN 9.5 g/dL (6.4-8.2)
[2024-02-17 18:42] LABS: BILIRUBIN,URINE NEGATIVE (NEGATIVE); BLOOD/HEMOGLOBIN,URINE NEGATIVE (NEGATIVE); GLUCOSE, URINE 4+ (NEGATIVE); KETONES,URINE NEGATIVE (NEGATIVE); LEUKOCYTE ESTERASE ,URINE NEGATIVE (NEGATIVE); NITRITES,URINE NEGATIVE (NEGATIVE); PROTEIN,URINE 1+ (NEGATIVE); UROBILINOGEN,URINE NORMAL (NORMAL)
[2024-02-17 18:53] LABS: APPEARANCE,URINE CLEAR (CLEAR); BACTERIA,URINE TRACE /HPF (NEGATIVE); COLOR,URINE YELLOW (YELLOW); RBC,URINE 0-2 /HPF (0-3); SQUAMOUS EPITHELIAL CELL,UR FEW /HPF (NEGATIVE)
[2024-02-17] MEDS: MORPHINE SULFATE INJ 2 MG INJ IVP PRN (19:22)
[2024-02-17] MEDS: PROTONIX INJ 40 MG VIAL IVP SCH (19:25)
[2024-02-17] MEDS: NS 1,000 ML IV 1,000 ML IV SCH (19:27)
[2024-02-17 21:17] VITALS: BMI 26.2
[2024-02-17] MEDS: SNACK - Diabetic Appropriate PO SCH (21:42)
[2024-02-17] MEDS: VANCOMYCIN IV *PREMIX 1 G/200 ML BAG 1 G/200 ML PIGGYBACK IV SCH (21:45)
[2024-02-17] MEDS: NORCO 5/325 MG TAB PO PRN (22:13)
--- NOTE | 2024-02-18 05:22 | RAD ---
EXAM: CHEST, 1 VIEW HISTORY: SEPSIS; COMPARISON: 12/28/2023 FINDINGS: The trachea is midline. The cardiac silhouette is unremarkable . The lungs are clear without focal infiltrate or effusion. The bony thorax is unremarkable. IMPRESSION: No acute cardiopulmonary disease. THIS IS AN ELECTRONICALLY VERIFIED FINAL REPORT 02/18/2024 5:19 AM - Electronically signed by Domenico Valerio MD
[2024-02-18 06:04] LABS: BASOPHILS # (AUTO) 0.1 X10^3/uL (0.0-0.1); BASOPHILS % (AUTO) 0.6 % (0.2-1.0); EOSINOPHILS # (AUTO) 0.1 x10^3/uL (0.0-0.2); EOSINOPHILS % (AUTO) 0.7 % (0.9-2.9); HEMATOCRIT 28.4 % (36.0-47.0); HEMOGLOBIN 9.6 g/dL (12.0-16.0); LYMPHOCYTES # (AUTO) 0.6 X10^3/uL (1.3-2.9); MEAN CORPUSCULAR HEMOGLOBIN 27.2 pg (27.0-34.0); MEAN CORPUSCULAR HGB CONC 33.7 g/dL (33.0-35.0); MEAN CORPUSCULAR VOLUME 80.8 fL (80.0-100.0); MEAN PLATELET VOLUME 9.5 fL (7.4-11.0); MONOCYTES # (AUTO) 0.6 x10^3/uL (0.3-0.8); MONOCYTES % (AUTO) 5.5 % (0.0-13.0); NEUTROPHILS # (AUTO) 9.2 x10^3/uL (2.2-4.8); NEUTROPHILS % (AUTO) 87.2 % (42.0-75.0); PLATELET COUNT 320 X10^3/uL (150.0-450.0); RED BLOOD COUNT 3.52 X10^6/uL (3.5-5.4); RED CELL DISTRIBUTION WIDTH 15.1 % (11.6-16.5); WHITE BLOOD COUNT 10.6 X10^3/uL (3.6-10.0)
[2024-02-18 06:06] LABS: ALBUMIN 2.9 g/dL (3.4-5.0); CALCIUM 9.2 mg/dL (8.5-10.1); CARBON DIOXIDE 25.7 mmol/L (21-32); COR CA(FOR HYPOALB) 10.1 mg/dL (8.5-10.1); CREATININE 2.03 mg/dL (0.55-1.02); POTASSIUM 4.5 mmol/L (3.5-5.1); TOTAL PROTEIN 8.3 g/dL (6.4-8.2)
[2024-02-18] MEDS: NovoLIN R (or HumuLIN R) SUBCUT PRN (06:24)
[2024-02-18] MEDS: NORCO 7.5/325 MG TAB PO ONE (08:46)
[2024-02-18] MEDS: NORCO 7.5/325 MG TAB ONE (08:49)
[2024-02-18] MEDS: DILAUDID INJ IVP PRN (11:51)
[2024-02-18] MEDS: ZOFRAN INJ 4 MG VIAL IVP PRN (14:17)
[2024-02-18] MEDS: NORCO 7.5/325 MG TAB PO PRN (15:06)
[2024-02-18] MEDS: ZOFRAN INJ 4 MG VIAL ONE (16:23)
[2024-02-18] MEDS: VANCOMYCIN IV *PREMIX 1 G/200 ML BAG 1 G/200 ML PIGGYBACK IV SCH (20:44)
[2024-02-18] MEDS: COLACE CAP 100 MG PO SCH (20:45)
--- NOTE | 2024-02-19 05:22 | RAD ---
EXAM:KUBHISTORY:CONSTIPATION; UnavailableCOMPARISON:None.FINDINGS:Eval uation of the abdomen demonstrates a normal bowel gas pattern. There is a considerable amount of fecal material throughout the colon. Surgical clips right upper quadrant. No pathological soft tissue mass or calcification can be observed. The bony structures are grossly intact.IMPRESSION:Mild constipationTHIS IS AN ELECTRONICALLY VERIFIED FINAL [id number]/2024 5:18 AM - Electronically signed by Domenico Valerio MD
[2024-02-19] MEDS: MILK OF MAGNESIA PO PRN (05:24)
[2024-02-19 06:28] LABS: BASOPHILS # (AUTO) 0.1 X10^3/uL (0.0-0.1); EOSINOPHILS # (AUTO) 0.4 x10^3/uL (0.0-0.2); EOSINOPHILS % (AUTO) 3.9 % (0.9-2.9); LYMPHOCYTES # (AUTO) 0.8 X10^3/uL (1.3-2.9); LYMPHOCYTES % (AUTO) 6.7 % (21.0-51.0); MEAN CORPUSCULAR HEMOGLOBIN 26.1 pg (27.0-34.0); MEAN CORPUSCULAR HGB CONC 32.1 g/dL (33.0-35.0); MEAN CORPUSCULAR VOLUME 81.2 fL (80.0-100.0); MEAN PLATELET VOLUME 9.4 fL (7.4-11.0); MONOCYTES # (AUTO) 0.6 x10^3/uL (0.3-0.8); MONOCYTES % (AUTO) 5.7 % (0.0-13.0); NEUTROPHILS # (AUTO) 9.3 x10^3/uL (2.2-4.8); NEUTROPHILS % (AUTO) 82.7 % (42.0-75.0); PLATELET COUNT 345 X10^3/uL (150.0-450.0); RED BLOOD COUNT 3.45 X10^6/uL (3.5-5.4); RED CELL DISTRIBUTION WIDTH 15.4 % (11.6-16.5); WHITE BLOOD COUNT 11.2 X10^3/uL (3.6-10.0)
[2024-02-19 06:44] LABS: ALBUMIN 2.6 g/dL (3.4-5.0); CALCIUM 9.4 mg/dL (8.5-10.1); CARBON DIOXIDE 25.6 mmol/L (21-32); COR CA(FOR HYPOALB) 10.5 mg/dL (8.5-10.1); CREATININE 1.74 mg/dL (0.55-1.02); POTASSIUM 4.4 mmol/L (3.5-5.1)
[2024-02-19] MEDS: DULCOLAX SUPPOSITORY 10 MG RECTAL ONE (08:24)
[2024-02-19] MEDS: NORCO 7.5/325 MG TAB PO PRN (08:24)
[2024-02-19 09:24] LABS: MAGNESIUM 1.7 mg/dL (2.0-2.9)
[2024-02-19] MEDS: CYMBALTA PO SCH ×2 (10:13→20:51)
[2024-02-19] MEDS: ECOTRIN TAB 325 MG PO SCH (10:13)
[2024-02-19] MEDS: NYSTATIN CREAM TOP PRN (10:47)
[2024-02-19] MEDS: LOVENOX INJ 40 MG SYR SC SCH (10:47)
[2024-02-19] MEDS: ZANAFLEX PO ONE (10:47)
[2024-02-19] MEDS ORDERED: ECOTRIN TAB 325 MG PO SCH (11:00)
[2024-02-19] MEDS: PERCOCET TAB 5/325 MG PO PRN (11:16)
--- NOTE | 2024-02-19 11:47 | RAD ---
EXAM:CHEST, 1 VIEWHISTORY:COPD/shortness of breath;COMPARISON:February 17, 2024TECHNIQUE:1 frontal view of the chestFINDINGS:The heart silhouette is enlarged. Aortic atherosclerotic calcifications are noted. The trachea is midline. Interstitial coarsening. No pneumothorax or focal pneumonia.IMPRESSION:Cardiomegaly with chronic appearing interstitial lung disease.THIS IS AN ELECTRONICALLY VERIFIED FINAL [id number]/2024 11:44 AM - Electronically signed by Piero Grimes MD
--- NOTE | 2024-02-19 13:07 | CT ---
EXAMINATION:ABDOMEN/PELVIS W/O CONHISTORY:PELVIC PAIN RO RENAL STONE, FLANK PAIN ; .COMPARISON:CT abdomen and pelvis 01/25/2019TECHNIQUE:Unenhanced axial images were obtained through the abdomen and pelvis using renal stone protocol. Reformatted images were obtained as well. Lack of oral and IV contrast limits diagnostic sensitivityThe above CT scan was done with automated exposure control and the mA and kV was adjusted to obtain quality images according to patient size.FINDINGS:Lung bases: Dependent atelectasis. No acute findings. Fluid-filled distal esophagus may represent dysmotility or reflux. Consider endoscopyLiver: Hepatomegaly with fatty liver. No acute findings or focal lesions.GB/Biliary: Cholecystectomy. No dilated ducts.Spleen: Normal size and densityPancreas: No acute findings. No pseudocyst or dilated ductAdrenal Glands: No massKidneys: There is right hydroureteronephrosis to the level of the bladder. At the right UVJ there is a 2 mm obstructing stone. No obstructing stone on the left. No solid-appearing lesions.Abdominal aorta: Tapers normally. Atherosclerotic calcification noted.Retroperitoneum: At the level of the iliac bifurcation there is soft tissue fullness and stranding which can be seen with retroperitoneal fibrosis lymphoma or other etiology. Evaluation limited by lack of contrast.Bowel: No thickened or dilated loops of bowel, free fluid, free air, pneumatosis or abscess. Moderate stool. There is an anastomosis within the transverse colon. Appendix not definitely seen. No CT evidence for appendicitis, diverticulitis or obstruction.Bladder/: Right distal ureter and bladder unremarkable. Bladder is partially decompressed. No pelvic or adnexal mass noted.Osseous: Multilevel degenerative changes within the thoracolumbar spine with degenerative changes in both hips. No acute findings or bony lesions.IMPRESSION:2 mm obstructing stone at the right UVJ with hydroureteronephrosis.Soft tissue fullness at the iliac bifurcation with stranding may represent retroperitoneal fibrosis, lymphoma or other etiology. Close follow-up recommended.Fluid-filled distal esophagus may represent dysmotility or reflux. Consider endoscopyPostsurgical change within the transverse colon. Constipation. No CT evidence for obstruction, appendicitis or diverticulitisTHIS IS AN ELECTRONICALLY VERIFIED FINAL [id number]/2024 1:04 PM - Electronically signed by Garcia Hicks MD
[2024-02-19] MEDS: ELAVIL PO SCH (20:51)
[2024-02-19] MEDS: MIRAPEX TAB 0.25 MG PO SCH (20:52)
[2024-02-19] MEDS: LYRICA CAP 150 mg PO SCH (20:52)
[2024-02-20 06:04] LABS: BASOPHILS # (AUTO) 0.1 X10^3/uL (0.0-0.1); BASOPHILS % (AUTO) 0.6 % (0.2-1.0); EOSINOPHILS # (AUTO) 0.4 x10^3/uL (0.0-0.2); HEMATOCRIT 27.9 % (36.0-47.0); HEMOGLOBIN 8.9 g/dL (12.0-16.0); LYMPHOCYTES # (AUTO) 0.7 X10^3/uL (1.3-2.9); LYMPHOCYTES % (AUTO) 5.4 % (21.0-51.0); MEAN CORPUSCULAR HEMOGLOBIN 25.9 pg (27.0-34.0); MEAN CORPUSCULAR HGB CONC 31.8 g/dL (33.0-35.0); MEAN CORPUSCULAR VOLUME 81.3 fL (80.0-100.0); MEAN PLATELET VOLUME 9.3 fL (7.4-11.0); MONOCYTES # (AUTO) 0.6 x10^3/uL (0.3-0.8); MONOCYTES % (AUTO) 4.8 % (0.0-13.0); NEUTROPHILS # (AUTO) 10.5 x10^3/uL (2.2-4.8); NEUTROPHILS % (AUTO) 86.2 % (42.0-75.0); PLATELET COUNT 375 X10^3/uL (150.0-450.0); RED BLOOD COUNT 3.44 X10^6/uL (3.5-5.4); RED CELL DISTRIBUTION WIDTH 15.5 % (11.6-16.5); WHITE BLOOD COUNT 12.1 X10^3/uL (3.6-10.0)
[2024-02-20] MEDS: SYNTHROID 100 mcg TAB PO SCH (06:04)
[2024-02-20 06:14] LABS: ALBUMIN 2.5 g/dL (3.4-5.0); CALCIUM 9.1 mg/dL (8.5-10.1); CARBON DIOXIDE 26.4 mmol/L (21-32); COR CA(FOR HYPOALB) 10.3 mg/dL (8.5-10.1); CREATININE 1.85 mg/dL (0.55-1.02); MAGNESIUM 2.2 mg/dL (2.0-2.9)
[2024-02-20] MEDS: FLOMAX PO SCH (08:47)
[2024-02-20] MEDS: LINZESS PO SCH (10:45)
[2024-02-20] MEDS: DIFLUCAN PO ONE (11:19)
[2024-02-20] MEDS: ZANAFLEX PO PRN (13:56)
[2024-02-20] MEDS: PHARMACY COMMENT IV NR (19:01)
[2024-02-20 21:17] LABS: CREATININE 1.9 mg/dL (0.55-1.02)
[2024-02-20] MEDS: TERAZOL VG SCH (21:21)
[2024-02-20] MEDS: VANCOMYCIN IV *PREMIX 1.25 G/250 ML BAG 1.25 G/250 ML PIGGYBACK IV SCH (21:53)
[2024-02-21 05:59] LABS: CALCIUM 8.9 mg/dL (8.5-10.1); CARBON DIOXIDE 22.2 mmol/L (21-32); CREATININE 1.99 mg/dL (0.55-1.02); POTASSIUM 4.5 mmol/L (3.5-5.1)
[2024-02-21 06:12] LABS: BASOPHILS # (AUTO) 0.1 X10^3/uL (0.0-0.1); BASOPHILS % (AUTO) 0.8 % (0.2-1.0); EOSINOPHILS # (AUTO) 0.4 x10^3/uL (0.0-0.2); EOSINOPHILS % (AUTO) 3.4 % (0.9-2.9); HEMATOCRIT 24.2 % (36.0-47.0); HEMOGLOBIN 7.9 g/dL (12.0-16.0); LYMPHOCYTES # (AUTO) 0.7 X10^3/uL (1.3-2.9); LYMPHOCYTES % (AUTO) 5.6 % (21.0-51.0); MEAN CORPUSCULAR HEMOGLOBIN 26.5 pg (27.0-34.0); MEAN CORPUSCULAR HGB CONC 32.4 g/dL (33.0-35.0); MEAN CORPUSCULAR VOLUME 81.7 fL (80.0-100.0); MONOCYTES # (AUTO) 0.6 x10^3/uL (0.3-0.8); MONOCYTES % (AUTO) 4.9 % (0.0-13.0); NEUTROPHILS # (AUTO) 10.4 x10^3/uL (2.2-4.8); NEUTROPHILS % (AUTO) 85.3 % (42.0-75.0); PLATELET COUNT 385 X10^3/uL (150.0-450.0); RED BLOOD COUNT 2.97 X10^6/uL (3.5-5.4); RED CELL DISTRIBUTION WIDTH 15.4 % (11.6-16.5); WHITE BLOOD COUNT 12.2 X10^3/uL (3.6-10.0)
[2024-02-21] MEDS ORDERED: XYLOCAINE 2 % (PLAIN) ONE (07:45)
[2024-02-21] MEDS: DIPRIVAN VIAL 20 ML ONE ×2 (07:59→09:24)
[2024-02-21 11:06] LABS: ALBUMIN 2.4 g/dL (3.4-5.0); COR CA(FOR HYPOALB) 10.2 mg/dL (8.5-10.1); TOTAL PROTEIN 7.6 g/dL (6.4-8.2)
--- NOTE | 2024-02-21 17:12 | RAD ---
EXAMINATION:KUBHISTORY:RT FLANK PAIN; HTN, DM SX: HYST .COMPARISON STUDY:KUB 02/18/2024TECHNIQUE:Single supine AP view of the abdomen and pelvisFINDINGS:Surgical clips right upper abdomen.Mild amount of feces descending colon, rectosigmoid. Minimal gaseous distention of the colon. Visualized soft tissue outlines and osseous structures appear intact. Pulmonary bases and lower pelvis were not included on the view.IMPRESSION:Mild amount of feces.THIS IS AN ELECTRONICALLY VERIFIED FINAL [id number]/2024 5:08 PM - Electronically signed by Jennifer Chairez MD
[2024-02-21] MEDS: BUSPAR PO PRN (20:53)
[2024-02-22 05:58] LABS: BASOPHILS # (AUTO) 0.1 X10^3/uL (0.0-0.1); BASOPHILS % (AUTO) 0.7 % (0.2-1.0); EOSINOPHILS # (AUTO) 0.5 x10^3/uL (0.0-0.2); EOSINOPHILS % (AUTO) 3.9 % (0.9-2.9); HEMATOCRIT 23.2 % (36.0-47.0); HEMOGLOBIN 7.4 g/dL (12.0-16.0); LYMPHOCYTES # (AUTO) 0.8 X10^3/uL (1.3-2.9); LYMPHOCYTES % (AUTO) 6.4 % (21.0-51.0); MEAN CORPUSCULAR HEMOGLOBIN 26.4 pg (27.0-34.0); MEAN CORPUSCULAR HGB CONC 32.1 g/dL (33.0-35.0); MEAN CORPUSCULAR VOLUME 82.3 fL (80.0-100.0); MEAN PLATELET VOLUME 8.5 fL (7.4-11.0); MONOCYTES # (AUTO) 0.7 x10^3/uL (0.3-0.8); MONOCYTES % (AUTO) 5.6 % (0.0-13.0); NEUTROPHILS # (AUTO) 10.4 x10^3/uL (2.2-4.8); NEUTROPHILS % (AUTO) 83.4 % (42.0-75.0); PLATELET COUNT 411 X10^3/uL (150.0-450.0); RED BLOOD COUNT 2.82 X10^6/uL (3.5-5.4); RED CELL DISTRIBUTION WIDTH 15.7 % (11.6-16.5); WHITE BLOOD COUNT 12.5 X10^3/uL (3.6-10.0)
[2024-02-22 06:12] LABS: ALBUMIN 2.4 g/dL (3.4-5.0); CALCIUM 8.9 mg/dL (8.5-10.1); CARBON DIOXIDE 24.6 mmol/L (21-32); COR CA(FOR HYPOALB) 10.2 mg/dL (8.5-10.1); CREATININE 1.91 mg/dL (0.55-1.02); TOTAL PROTEIN 7.7 g/dL (6.4-8.2)
[2024-02-22 07:43] VITALS: TEMP 97.6
--- NOTE | 2024-02-22 08:08 | CT ---
EXAM: CT abdomen pelvis without contrast HISTORY: Lower abdominal pain TECHNIQUE: Axial noncontrast images with coronal and sagittal reformats. Dose reduction procedures were used wi th mA/kv adjusted for body size. COMPARISON: 02/19/2024 FINDINGS: Lung bases are free of acute infiltrates. Trace bilateral pleural effusions are present. Liver, s pleen, adrenal glands, and pancreas are within normal limits to the limitations of an unenhanced exam ination. Patient is status post cholecystectomy. Left kidney is unobstructed and without stones. N o left ureteral calculus. There is persistent and slightly increasing right-sided hydro uretero neph rosis proximal to a 4.3 x 3.4 cm retroperitoneal mass located in the area of the aortic bifurcation. Findings could be consistent with adenopathy perhaps due to lymphoma or metastatic disease infectio n/inflammation ,retroperitoneal neoplasm, or unusual retroperitoneal fibrosis. Previously noted dist al right ureteral calculus no longer identified. The appendix is not identified with absolute certai nty. There is a nonspecific inflammatory process in the pericecal region extending into the right he mipelvis which has developed in the interim since 02/19/2024. Etiology is not obvious. Appendiciti s not excluded. Clinical and historical correlation recommended. There are no findings suggestive o f enteritis, colitis, or diverticulitis. No pelvic masses, pelvic fluid, or pelvic lymphadenopathy i dentified. No lytic or blastic skeletal lesions of significance identified. IMPRESSION: Previously noted distal right ureteral calculus no longer identified Persistence of a 4.3 x 3.4 cm retroperitoneal mass in the area of the aortic bifurcation contributing to mild right ureteral obstruction with slight increase in hydro nephrosis since the prior examinati on. Some differential diagnostic possibilities given above Interval development of a pericecal inflammatory process extending down into the right hemipelvis the etiology of which is unclear at this time. Appendix not identified. If the patient is not status p ost appendectomy appendicitis not excluded. Historical correlation recommended. THIS IS AN ELECTRONICALLY VERIFIED FINAL REPORT 02/22/2024 8:04 AM - Electronically signed by Alejandro Porter MD
--- NOTE | 2024-02-22 08:09 | RAD ---
EXAM: Urinary calculus HISTORY: KUB COMPARISON: CT abdomen pelvis 02/19/2024, 02/22/2024 FINDINGS: Abdominal gas pattern is nonspecific and nonobstructive. No abnormal masses or abnormal calcificat ions are identified. Regional skeleton is intact. IMPRESSION: Unremarkable KUB THIS IS AN ELECTRONICALLY VERIFIED FINAL REPORT 02/22/2024 8:06 AM - Electronically signed by Alejandro Porter MD
[2024-02-22 12:06] VITALS: BP 131/67; PULSE 97; O2SAT 95
[2024-02-22 12:55] VITALS: RESP 20
[2024-02-23] MEDS ORDERED: PHARMACY COMMENT IV ONE (20:30)
== END 2024-02-22 12:55 | disposition short-term general hospital (02) | DRG 871 ==
LOC: MED/SURG → OBSVTOIN 17:22
PROVIDERS: ADMIT Internal Medicine; ATTEND Internal Medicine
DX: E87.1 Hypo-osmolality and hyponatremia; R79.82 Elevated C-reactive protein (CRP); B95.61 Methicillin susceptible Staphylococcus aureus infection as the cause of diseases classified elsewhere; E11.65 Type 2 diabetes mellitus with hyperglycemia; J44.9 Chronic obstructive pulmonary disease, unspecified; R78.81 Bacteremia; M35.00 Sjogren syndrome, unspecified; I12.9 Hypertensive chronic kidney disease with stage 1 through stage 4 chronic kidney disease, or unspecified chronic kidney disease; Z29.89 Encounter for other specified prophylactic measures; E78.5 Hyperlipidemia, unspecified; K21.9 Gastro-esophageal reflux disease without esophagitis; R00.0 Tachycardia, unspecified; N17.8 Other acute kidney failure; N13.2 Hydronephrosis with renal and ureteral calculous obstruction; R70.0 Elevated erythrocyte sedimentation rate; Z20.822 Contact with and (suspected) exposure to COVID-19; N18.9 Chronic kidney disease, unspecified; R10.2 Pelvic and perineal pain; E03.8 Other specified hypothyroidism; M54.89 Other dorsalgia; D64.89 Other specified anemias; Z86.79 Personal history of other diseases of the circulatory system; K68.9 Other disorders of retroperitoneum